=== PATIENT | male | born 1950 | race Caucasian/White ===

== ENCOUNTER → 2018-04-03 06:01 | Outpatient (CLI) | payer MEDICARE, OTHER, SELFPAY ==
[2018-04-03 08:45] LABS: Hemoglobin A1c 7.3 % (4.2-6.3)
== END ==
PROVIDERS: Family Provider Family Medicine; PCP Family Medicine; Visit Provider Family Medicine
DX: E11.9 Type 2 diabetes mellitus without complications (principal)
CPT/HCPCS: 36415; 83036

== ENCOUNTER → 2018-06-14 06:52 | Outpatient (CLI) | payer MEDICARE, OTHER, SELFPAY ==
[2018-06-14 07:47] LABS: Hemoglobin A1c 6.8 % (4.2-6.3)
[2018-06-14 07:52] LABS: AST(SGOT) 13 U/L (15-37); Alanine Aminotransfer ALT/SGPT 19 U/L (16-61); Albumin, Serum 3.7 g/dL (3.2-5.0); Alkaline Phosphatase 55 U/L (45-117); Anion Gap 8 (5-15); BUN 27 mg/dL (7-18); Calcium,Total 9.1 mg/dL (8.5-10.1); Chloride 104 mmol/L (98-107); Creatinine, Serum 0.77 mg/dL (0.70-1.30); EST Glomerular Filtration Rate 107 mL/min (>60); Est Glom Filt Rate - Afr Amer 130 mL/min (>60); Globulin 3.6 g/dL (2.2-4.2); Glucose 117 mg/dL (74-106); Potassium 3.5 mmol/L (3.5-5.1); Protein, Total 7.3 g/dL (6.4-8.2); Sodium Level 142 mmol/L (136-145)
== END ==
PROVIDERS: Family Provider Family Medicine; PCP Family Medicine; Visit Provider Family Medicine
DX: E11.9 Type 2 diabetes mellitus without complications (principal); I10 Essential (primary) hypertension
CPT/HCPCS: 36415; 80053; 83036

== ENCOUNTER 2018-06-21 10:00 | Outpatient (RCR) | payer MEDICARE, OTHER, SELFPAY ==
[2018-06-14 08:33] VITALS: BP 126/81; PULSE 82; RESP 18; TEMP 36.6; BMI 71.5
--- NOTE | 2018-06-14 09:24 | PCM.WC.HP ---
(1) Ulcer of left lower extremity Status: Acute Current Visit: Yes Code(s): L97.929 - Non-pressure chronic ulcer of unspecified part of left lower leg with unspecified severity (2) Type 2 diabetes mellitus Status: Chronic Current Visit: No Code(s): E11.9 - Type 2 diabetes mellitus without complications History of Present Illness Date of Service: 06/14/18 Chief Complaint: Left lower extremity redness and ulcer. History of Wound: Mr. Murillo is a 67-year-old with past medical history of diabetes mellitus type 2 with decent control who presents to the wound center due to persistent left lower extremity redness/ulcer. Said to have started several months ago, had been seen at the foot and ankle clinic and wound center in [place] and at some point and had a biopsy without any significant abnormality noted. Patient states that he was advised to apply triamcinolone cream however when he was seen at his primary care physician's office last week it was noted that there was some ulceration and weeping from the lesion and was advised to stop the triamcinolone. He was given Adaptic which he has applied to the area daily. He has noted improvement in the ulcers and devitalized tissue however, he still has some burning and pain around. He denies any known history of peripheral arterial disease. No known smoking history. He feels well otherwise. Past Medical History Past Medical History: Chronic Problems (Last Reviewed 06/07/18 @ 17:14 by Feliz Landeros DO) Chronic sciatica (Chronic) Hypertension (Chronic) Type 2 diabetes mellitus (Chronic) Allergies/Adverse Reactions: Allergies Penicillins Allergy (Severe, Verified 06/14/18 08:53) unknown Home Medications: Ambulatory Orders Medication Instructions Recorded hydrochlorothiazide 12.5 mg tablet 12.5 mg PO QAM 03/02/18 potassium 99 mg tablet 2.5 meq PO QDAY 03/02/18 amlodipine 5 mg-benazepril 10 mg 1 cap PO QDAY #90 cap 04/24/18 capsule metformin ER 500 mg 500 mg PO BID #180 tab 05/14/18 tablet,extended release 24 hr empagliflozin 25 mg tablet 25 mg PO QAM 06/07/18 triamcinolone acetonide 0.1 % 1 applic TOPICAL BID 06/07/18 topical cream Smoking Status: Never smoker Review of Systems Constitutional: Denies: Anorexia, Chills, Fever, Night Sweats Eyes: Denies: Blurred vision HEENT: Denies: Difficulty Swallowing Cardiovascular: Denies: Chest Pain Respiratory: Denies: Cough, Hemoptysis Gastrointestinal: Denies: Abdominal Pain, Hematemesis, Vomiting Skin: Denies: Jaundice Neurological: Denies: Focal weakness, Tremor - Physical Exam Vital Signs Temp Pulse Resp BP 98 F 82 18 126/81 H 06/14/18 08:33 06/14/18 08:33 06/14/18 08:33 06/14/18 08:33 General: Alert, Oriented x3, Cooperative, No apparent distress HEENT: Atraumatic Oral: Moist Mucosa Neck: Supple Lungs: Normal air movement Cardiovascular: Regular rate, Regular Rhythm Abdomen: Soft, Non Tender Extremities: No cyanosis, Edema, Tenderness Skin: Ulcer/ Wound Wound Measurements and Assessment WC - Nurse 1 - General Ulcer Measurement Start: 06/14/18 08:28 Freq: Status: Active Protocol: Activity Type Activity Date Activity User E-Sign Co-Sign Detail Recorded Client Recorded Date Recorded By Document 06/14/18 08:33 DL [id number] 06/14/18 08:50 DL 06/14/18 08:33 Wound Center Nurse 1 [Ulcer Assessment] #1 L Med Ankle -Current Size (cm) - Length 7 -Current Size (cm) - Width 7 -Current Size (cm) - Depth 0.1 -Total Square Cm 49 -Photo Taken Yes -Classification - Thickness Partial Thickness -Exudate Amt Small (1-33%) -Exudate Type Serosanguineous -Wound Margin Flat & Intact -Granulation Amt Large (67-100%) -Granulation Quality Red -Necrosis Amt None Present (0 %) -Structure Exposed N/A -Texture (Jennifer-wound Skin Appearance) Excoriation Localized Edema -Moisture (Jennifer-wound Skin Appearance No Abnormality ) -Color (Jennifer-wound Skin Appearance) Erythema Hemosiderin Staining -Temperature (Jennifer-wound Skin No Abnormality Appearance) (Pt Warm) -Ulcer Cleansing Rinsed/ Irrigated with Saline -Foul Odor after Cleansing No -Anesthetic Used 4% Lidocaine Solution [Edema Assessment] -Right Calf (cm) 37 -Right Ankle (cm) 21.5 -Left Calf (cm) 37.6 -Left Ankle (cm) 22.5 WC - Nurse 2 - General Ulcer CM Notes Start: 06/14/18 08:28 Freq: Status: Active Protocol: Activity Type Activity Date Activity User E-Sign Co-Sign Detail Recorded Client Recorded Date Recorded By Document 06/14/18 09:01 MW [id number] 06/14/18 09:14 MW 06/14/18 09:01 Wound Center Nurse 2 [Procedure/Treatment] #1 L Med Ankle -Time 09:01 -Correct Patient Yes -Correct Side, Site, Position Yes -Correct Procedure No -Procedure Performed No -Post Debridement Size (cm) - Length 7.0 -Post Debridement Size (cm) - Width 7.0 -Post Debridement Size (cm) - Depth 0.1 -Total Square Cm 49.00 -Wound/Ulcer Outcome Not Healed -Ulcer Cleansing Rinsed/ Irrigated with Saline -Foul Odor after Cleansing No -Bioengineered Tissue No -Bleeding Controlled with NA -Treatment Response Procedure Tolerated Well [See Physician Procedure note for Specifics] Pain Scale: 0-10 Numeric [Pain] -Is Patient Pain Free? Yes Musculoskeletal: No Muscle Wasting Neurological: Cranial nerves II-XII grossly intact Psych/Mental Status: Normal Affect Debridement Note Post-Debridement Measurements/Treatment WC - Nurse 2 - General Ulcer CM Notes Start: 06/14/18 08:28 Freq: Status: Active Protocol: Activity Type Activity Date Activity User E-Sign Co-Sign Detail Recorded Client Recorded Date Recorded By Document 06/14/18 09:01 MW [id number] 06/14/18 09:14 MW 06/14/18 09:01 Wound Center Nurse 2 #1 L Med Ankle -Time 09:01 -Correct Patient Yes -Correct Side, Site, Position Yes -Correct Procedure No -Procedure Performed No -Post Debridement Size (cm) - Length 7.0 -Post Debridement Size (cm) - Width 7.0 -Post Debridement Size (cm) - Depth 0.1 -Total Square Cm 49.00 -Wound/Ulcer Outcome Not Healed -Ulcer Cleansing Rinsed/ Irrigated with Saline -Foul Odor after Cleansing No -Bioengineered Tissue No -Bleeding Controlled with NA -Treatment Response Procedure Tolerated Well Pain Scale: 0-10 Numeric Is Patient Pain Free? Yes No debridement was completed today Assessment/Plan Active Problems (Last Reviewed 06/07/18 @ 17:14 by Feliz Landeros DO) Ulcer of left lower extremity (Acute) Assessment: Left lower extremity ulcer martinez O. Diabetes Mellitus type 2 with good control. Plan: Circumferential erythema with some superficial ulceration. Patient also reports burning. No known history of peripheral arterial disease as noted. No debridement was done today. Vascular and venous studies ordered. Last blood work reviewed. A1c 6.8. Patient again advised to stay of triamcinolone for now. Xeroform to be applied daily. Also discussed adequately moisturizing his skin. Evidence of very dry skin probably due to diabetes. Double layer Tubigrip for edema management. Follow-up in 1 week. Advised to call with any questions or concerns. This note was generated with [employer] dictation software. It may contain incorrect words, spelling, and punctuation that were not noted in checking the note before signing.
--- NOTE | 2018-06-21 07:45 | VDLE_ITS ---
Reason For Study: non-healing ulcer, edema RIGHT LEFT CFV is compressible, spontaneous, phasic, CFV is compressible, spontaneous, phasic, competent and demonstrates normal competent, and demonstrates normal augmentation. augmentation. FV is compressible, spontaneous, phasic, PTV is compressible. competent and demonstrates normal LT PerV is compressible. augmentation. FV and Pop V are partially compressible with POP V is compressible, spontaneous, phasic, decreased flow. competent and demonstrates normal T/P Trunk is partially compressible. augmentation. S-F Junction is competent. T/P Trunk is compressible. GSV is incompetent for greater than .5 PTV is compressible. seconds above the knee, but competent below RT PerV is compressible. the knee. GSV measures .559 x .557 cm. S-F Junction is competent. ASV at the mid/dist thigh is incompetent for GSV is incompetent throughout for greater greater than .5 seconds. ASV measures .505 than .5 seconds. GSV measures .376 x .347 x .469 cm. cm. [employer] V 17 cm proximal to the medial ASV below the knee is incompetent for malleolus is incompetent for greater than .5 greater than .5 seconds. ASV measures .521 seconds. x .567 cm. SSV is competent. Second ASV below the knee is incompetent for greater than .5 seconds. ASV mesures .318 x .359 cm. SSV is competent. Procedure Exam performed in department. The exam was diagnostic. A preliminary report was called and/or faxed to [facility] at the [facility]. Interpretation Summary Acute and chronic deep vein thrombosis is noted in the left femoral vein, popliteal vein, and tibio -peroneal trunk. The remainder of the left lower extremity deep venous system is patent and compressible. The left common femoral vein is competent. Deep veins of the right lower extremity are patent and compressible segmentally. There is no evidence of right lower extremity deep vein thrombosis. Valvular competence appears intact within the proximal deep venous system on the right . The greater saphenous veins appear bilaterally patent and compressible segmentally. Sapheno -femoral junctions are bilaterally competent . The right greater saphenous vein appears segmentally incompetent. The left greater saphenous vein appears incompetent above the knee. The left greater saphenous vein appears competent below the knee. Small saphenous veins are patent and competent bilaterally. Two accessory saphenous veins below the right knee are noted to be incompetent. An accessory saphenous vein in the left mid-thigh is incompetent. An incompetent cartridge filler vein is noted in the left calf, located 17 centimeters proximal to the left medial malleolus. Ordering Physician: Alberto Toussaint Performed By: Emerson Christine RVT
[2018-06-21 09:20] VITALS: BP 156/95; PULSE 64; RESP 20; TEMP 36.5; BMI 71.5
--- NOTE | 2018-06-21 09:55 | PCM.WC.PN ---
(1) Ulcer of left lower extremity Status: Acute Current Visit: Yes Code(s): L97.929 - Non-pressure chronic ulcer of unspecified part of left lower leg with unspecified severity (2) Type 2 diabetes mellitus Status: Chronic Current Visit: No Code(s): E11.9 - Type 2 diabetes mellitus without complications Type of Wound Date of Service: 06/21/18 Chief Complaint: Left lower extremity redness and ulcer. History of Wound: Mr. Murillo is a 67-year-old with past medical history of diabetes mellitus type 2 with decent control who presents to the wound center due to persistent left lower extremity redness/ulcer. Said to have started several months ago, had been seen at the foot and ankle clinic and wound center in [place] and at some point and had a biopsy without any significant abnormality noted. Patient states that he was advised to apply triamcinolone cream however when he was seen at his primary care physician's office last week it was noted that there was some ulceration and weeping from the lesion and was advised to stop the triamcinolone. He was given Adaptic which he has applied to the area daily. He has noted improvement in the ulcers and devitalized tissue however, he still has some burning and pain around. He denies any known history of peripheral arterial disease. No known smoking history. He feels well otherwise. Progress of Wound: Stable. No new complaints at this time. - Physical Exam Vital Signs Temp Pulse Resp BP 97.7 F L 64 20 H 156/95 H 06/21/18 09:20 06/21/18 09:20 06/21/18 09:20 06/21/18 09:20 General: Alert, Oriented x3, Cooperative, No apparent distress HEENT: Atraumatic Oral: Moist Mucosa Neck: Supple Lungs: Normal air movement Cardiovascular: Regular rate Abdomen: Non Tender Extremities: No cyanosis, Edema Skin: Ulcer/ Wound Wound Measurements and Assessment WC - Nurse 1 - General Ulcer Measurement Start: 06/14/18 08:28 Freq: Status: Active Protocol: Activity Type Activity Date Activity User E-Sign Co-Sign Detail Recorded Client Recorded Date Recorded By Document 06/21/18 09:20 DL [id number] 06/21/18 09:27 DL 06/21/18 09:20 Wound Center Nurse 1 [Ulcer Assessment] #1 L Med Ankle -Current Size (cm) - Length 6.7 -Current Size (cm) - Width 6.7 -Current Size (cm) - Depth 0.1 -Total Square Cm 44.89 -Photo Taken No -Epithelialization Large 67-100% -Exudate Amt Small (1-33%) -Exudate Type Serosanguineous -Wound Margin Flat & Intact -Granulation Amt Large (67-100%) -Granulation Quality [place] Red -Necrosis Amt None Present (0 %) -Structure Exposed N/A -Texture (Jennifer-wound Skin Appearance) Localized Edema -Moisture (Jennifer-wound Skin Appearance Weeping ) -Color (Jennifer-wound Skin Appearance) Hemosiderin Staining Rubor -Temperature (Jennifer-wound Skin No Abnormality Appearance) (Pt Warm) -Tenderness on Palpation (Jennifer-wound No Skin Appearance) -Ulcer Cleansing Rinsed/ Irrigated with Saline -Foul Odor after Cleansing No -Anesthetic Used 4% Lidocaine Solution [Edema Assessment] -Right Calf (cm) 37 -Right Ankle (cm) 21.5 -Left Calf (cm) 39.5 -Left Ankle (cm) 22.2 WC - Nurse 2 - General Ulcer CM Notes Start: 06/14/18 08:28 Freq: Status: Active Protocol: Activity Type Activity Date Activity User E-Sign Co-Sign Detail Recorded Client Recorded Date Recorded By Document 06/21/18 09:37 MW [id number] 06/21/18 09:40 MW 06/21/18 09:37 Wound Center Nurse 2 [Procedure/Treatment] #1 L Med Ankle -Time 09:37 -Correct Patient Yes -Correct Side, Site, Position Yes -Correct Procedure Yes -Procedure Performed No -Post Debridement Size (cm) - Length 6.7 -Post Debridement Size (cm) - Width 6.7 -Post Debridement Size (cm) - Depth 0.1 -Total Square Cm 44.89 -Wound/Ulcer Outcome Not Healed -Ulcer Cleansing Rinsed/ Irrigated with Saline -Foul Odor after Cleansing No -Bioengineered Tissue No -Bleeding Controlled with Pressure -Treatment Response Procedure Tolerated Well [See Physician Procedure note for Specifics] Pain Scale: 0-10 Numeric [Pain] -Is Patient Pain Free? Yes Musculoskeletal: No Muscle Wasting Neurological: Cranial nerves II-XII grossly intact Psych/Mental Status: Normal Affect Debridement Note Post-Debridement Measurements/Treatment WC - Nurse 2 - General Ulcer CM Notes Start: 06/14/18 08:28 Freq: Status: Active Protocol: Activity Type Activity Date Activity User E-Sign Co-Sign Detail Recorded Client Recorded Date Recorded By Document 06/14/18 09:01 MW [id number] 06/14/18 09:14 MW Document 06/21/18 09:37 MW [id number] 06/21/18 09:40 MW 06/14/18 06/21/18 09:01 09:37 Wound Center Nurse 2 #1 L Med Ankle -Time 09:01 09:37 -Correct Patient Yes Yes -Correct Side, Site, Position Yes Yes -Correct Procedure No Yes -Procedure Performed No No -Post Debridement Size (cm) - Length 7.0 6.7 -Post Debridement Size (cm) - Width 7.0 6.7 -Post Debridement Size (cm) - Depth 0.1 0.1 -Total Square Cm 49.00 44.89 -Wound/Ulcer Outcome Not Healed Not Healed -Ulcer Cleansing Rinsed/ Rinsed/ Irrigated with Irrigated with Saline Saline -Foul Odor after Cleansing No No -Bioengineered Tissue No No -Bleeding Controlled with NA Pressure -Treatment Response Procedure Procedure Tolerated Well Tolerated Well Pain Scale: 0-10 Numeric Is Patient Pain Free? Yes Yes No debridement was completed today Assessment/Plan Active Problems (Last Reviewed 06/07/18 @ 17:14 by Feliz Landeros DO) Ulcer of left lower extremity (Acute) Assessment: Left lower extremity ulcer martinez O. Diabetes Mellitus type 2 with good control. Plan: Improving circumferential erythema with some superficial ulceration still present. Also has noted some reduction in burning. Vascular and venous studies done reports pending. Continue Xeroform for now. Also continue adequately moisturizing skin and use of hypoallergenic products. Double layer Tubigrip for edema management. Follow-up in 2 weeks. Advised to call with any questions or concerns. This note was generated with [employer] dictation software. It may contain incorrect words, spelling, and punctuation that were not noted in checking the note before signing.
--- NOTE | 2018-06-21 09:59 | PN.PCM_ITS ---
(1) Ulcer of left lower extremity Status: Acute Current Visit: Yes Code(s): L97.929 - Non-pressure chronic ulcer of unspecified part of left lower leg with unspecified severity (2) Type 2 diabetes mellitus Status: Chronic Current Visit: No Code(s): E11.9 - Type 2 diabetes mellitus without complications Type of Wound Date of Service: 06/21/18 Chief Complaint: Left lower extremity redness and ulcer. History of Wound: Mr. Murillo is a 67-year-old with past medical history of diabetes mellitus type 2 with decent control who presents to the wound center due to persistent left lower extremity redness/ulcer. Said to have started several months ago, had been seen at the foot and ankle clinic and wound center in [place] and at some point and had a biopsy without any significant abnormality noted. Patient states that he was advised to apply triamcinolone cream however when he was seen at his primary care physician's office last week it was noted that there was some ulceration and weeping from the lesion and was advised to stop the triamcinolone. He was given Adaptic which he has applied to the area daily. He has noted improvement in the ulcers and devitalized tissue however, he still has some burning and pain around. He denies any known history of peripheral arterial disease. No known smoking history. He feels well otherwise. Progress of Wound: Stable. No new complaints at this time. - Physical Exam Vital Signs Temp Pulse Resp BP 97.7 F L 64 20 H 156/95 H 06/21/18 09:20 06/21/18 09:20 06/21/18 09:20 06/21/18 09:20 General: Alert, Oriented x3, Cooperative, No apparent distress HEENT: Atraumatic Oral: Moist Mucosa Neck: Supple Lungs: Normal air movement Cardiovascular: Regular rate Abdomen: Non Tender Extremities: No cyanosis, Edema Skin: Ulcer/ Wound Wound Measurements and Assessment WC - Nurse 1 - General Ulcer Measurement Start: 06/14/18 08:28 Freq: Status: Active Protocol: Activity Type Activity Date Activity User E-Sign Co-Sign Detail Recorded Client Recorded Date Recorded By Document 06/21/18 09:20 DL [id number] 06/21/18 09:27 DL 06/21/18 09:20 Wound Center Nurse 1 [Ulcer Assessment] #1 L Med Ankle -Current Size (cm) - Length 6.7 -Current Size (cm) - Width 6.7 -Current Size (cm) - Depth 0.1 -Total Square Cm 44.89 -Photo Taken No -Epithelialization Large 67-100% -Exudate Amt Small (1-33%) -Exudate Type Serosanguineous -Wound Margin Flat & Intact -Granulation Amt Large (67-100%) -Granulation Quality [place] Red -Necrosis Amt None Present (0 %) -Structure Exposed N/A -Texture (Jennifer-wound Skin Appearance) Localized Edema -Moisture (Jennifer-wound Skin Appearance Weeping ) -Color (Jennifer-wound Skin Appearance) Hemosiderin Staining Rubor -Temperature (Jennifer-wound Skin No Abnormality Appearance) (Pt Warm) -Tenderness on Palpation (Jennifer-wound No Skin Appearance) -Ulcer Cleansing Rinsed/ Irrigated with Saline -Foul Odor after Cleansing No -Anesthetic Used 4% Lidocaine Solution [Edema Assessment] -Right Calf (cm) 37 -Right Ankle (cm) 21.5 -Left Calf (cm) 39.5 -Left Ankle (cm) 22.2 WC - Nurse 2 - General Ulcer CM Notes Start: 06/14/18 08:28 Freq: Status: Active Protocol: Activity Type Activity Date Activity User E-Sign Co-Sign Detail Recorded Client Recorded Date Recorded By Document 06/21/18 09:37 MW [id number] 06/21/18 09:40 MW 06/21/18 09:37 Wound Center Nurse 2 [Procedure/Treatment] #1 L Med Ankle -Time 09:37 -Correct Patient Yes -Correct Side, Site, Position Yes -Correct Procedure Yes -Procedure Performed No -Post Debridement Size (cm) - Length 6.7 -Post Debridement Size (cm) - Width 6.7 -Post Debridement Size (cm) - Depth 0.1 -Total Square Cm 44.89 -Wound/Ulcer Outcome Not Healed -Ulcer Cleansing Rinsed/ Irrigated with Saline -Foul Odor after Cleansing No -Bioengineered Tissue No -Bleeding Controlled with Pressure -Treatment Response Procedure Tolerated Well [See Physician Procedure note for Specifics] Pain Scale: 0-10 Numeric [Pain] -Is Patient Pain Free? Yes Musculoskeletal: No Muscle Wasting Neurological: Cranial nerves II-XII grossly intact Psych/Mental Status: Normal Affect Debridement Note Post-Debridement Measurements/Treatment WC - Nurse 2 - General Ulcer CM Notes Start: 06/14/18 08:28 Freq: Status: Active Protocol: Activity Type Activity Date Activity User E-Sign Co-Sign Detail Recorded Client Recorded Date Recorded By Document 06/14/18 09:01 MW [id number] 06/14/18 09:14 MW Document 06/21/18 09:37 MW [id number] 06/21/18 09:40 MW 06/14/18 06/21/18 09:01 09:37 Wound Center Nurse 2 #1 L Med Ankle -Time 09:01 09:37 -Correct Patient Yes Yes -Correct Side, Site, Position Yes Yes -Correct Procedure No Yes -Procedure Performed No No -Post Debridement Size (cm) - Length 7.0 6.7 -Post Debridement Size (cm) - Width 7.0 6.7 -Post Debridement Size (cm) - Depth 0.1 0.1 -Total Square Cm 49.00 44.89 -Wound/Ulcer Outcome Not Healed Not Healed -Ulcer Cleansing Rinsed/ Rinsed/ Irrigated with Irrigated with Saline Saline -Foul Odor after Cleansing No No -Bioengineered Tissue No No -Bleeding Controlled with NA Pressure -Treatment Response Procedure Procedure Tolerated Well Tolerated Well Pain Scale: 0-10 Numeric Is Patient Pain Free? Yes Yes No debridement was completed today Assessment/Plan Active Problems (Last Reviewed 06/07/18 @ 17:14 by Feliz Landeros DO) Ulcer of left lower extremity (Acute) Assessment: Left lower extremity ulcer martinez O. Diabetes Mellitus type 2 with good control. Plan: Improving circumferential erythema with some superficial ulceration still present. Also has noted some reduction in burning. Vascular and venous studies done reports pending. Continue Xeroform for now. Also continue adequately moisturizing skin and use of hypoallergenic products. Double layer Tubigrip for edema management. Follow-up in 2 weeks. Advised to call with any questions or concerns. This note was generated with [employer] dictation software. It may contain incorrect words, spelling, and punctuation that were not noted in checking the note before signing.
--- NOTE | 2018-06-24 15:07 | LEAS ---
Arterial Study - Arterial Study Arterial Study: This is a 67-year-old male with a history of peripheral arterial occlusive disease. He is brought to the noninvasive vascular laboratory at this time for the purpose of bilateral noninvasive lower extremity arterial assessment. Doppler signal assessment was used to evaluate the pulses at ankle level bilaterally. The posterior tibial and dorsalis pedis pulses were triphasic bilaterally. Segmental limb pressures were obtained bilaterally. The right ankle pressure, as determined by posterior tibial pulse, was measured at 206 mmHg. The right ankle pressure, as determined by dorsalis pedis pulse, was measured at 186 mmHg. The right digital pressure was measured at 156 mmHg. The left ankle pressure, as determined by posterior tibial pulse, was measured at 195 mmHg. The left ankle pressure, as determined by dorsalis pedis pulse, was measured at 207 mmHg. The left digital pressure was measured at 148 mmHg. Pulse-volume recordings were obtained at ankle and digital levels bilaterally. Waveform amplitudes appeared to be satisfactory bilaterally. Resting ankle-brachial indices were calculated bilaterally. The resting right ankle-brachial index was calculated to be 1.23. The resting left ankle-brachial index was calculated to be 1.23. Digital-brachial indices were calculated bilaterally. The right digital-brachial index was calculated to be 0.93. The left digital-brachial index was calculated to be 0.88. Impression: Based upon the findings of this resting noninvasive lower extremity arterial study, there is no evidence of significant atherosclerotic peripheral arterial occlusive disease in the lower extremities bilaterally. Triphasic waveforms were noted at ankle level bilaterally. Resting ankle-brachial indices were bilaterally normal. Digital-brachial indices were also normal bilaterally. In summary, this represents a normal resting noninvasive lower extremity arterial study bilaterally.
--- NOTE | 2018-06-24 15:12 | LEAS_ITS ---
Arterial Study - Arterial Study Arterial Study: This is a 67-year-old male with a history of peripheral arterial occlusive disease. He is brought to the noninvasive vascular laboratory at this time for the purpose of bilateral noninvasive lower extremity arterial assessment. Doppler signal assessment was used to evaluate the pulses at ankle level bilaterally. The posterior tibial and dorsalis pedis pulses were triphasic bilaterally. Segmental limb pressures were obtained bilaterally. The right ankle pressure, as determined by posterior tibial pulse, was measured at 206 mmHg. The right ankle pressure, as determined by dorsalis pedis pulse, was measured at 186 mmHg. The right digital pressure was measured at 156 mmHg. The left ankle pressure, as determined by posterior tibial pulse, was measured at 195 mmHg. The left ankle pressure, as determined by dorsalis pedis pulse, was measured at 207 mmHg. The left digital pressure was measured at 148 mmHg. Pulse-volume recordings were obtained at ankle and digital levels bilaterally. Waveform amplitudes appeared to be satisfactory bilaterally. Resting ankle-brachial indices were calculated bilaterally. The resting right ankle-brachial index was calculated to be 1.23. The resting left ankle- brachial index was calculated to be 1.23. Digital-brachial indices were calculated bilaterally. The right digital- brachial index was calculated to be 0.93. The left digital-brachial index was calculated to be 0.88. Impression: Based upon the findings of this resting noninvasive lower extremity arterial study, there is no evidence of significant atherosclerotic peripheral arterial occlusive disease in the lower extremities bilaterally. Triphasic waveforms were noted at ankle level bilaterally. Resting ankle-brachial indices were bilaterally normal. Digital-brachial indices were also normal bilaterally. In summary, this represents a normal resting noninvasive lower extremity arterial study bilaterally.
== END 2018-07-01 23:59 ==
LOC: WC 10:00
PROVIDERS: Family Provider Family Medicine; PCP Family Medicine; Visit Provider Internal Medicine
DX: E11.622 Type 2 diabetes mellitus with other skin ulcer (principal); I10 Essential (primary) hypertension; L97.329 Non-pressure chronic ulcer of left ankle with unspecified severity; R60.0 Localized edema; R52 Pain, unspecified; M54.30 Sciatica, unspecified side; Z79.899 Other long term (current) drug therapy; Z79.84 Long term (current) use of oral hypoglycemic drugs; L53.8 Other specified erythematous conditions; E11.51 Type 2 diabetes mellitus with diabetic peripheral angiopathy without gangrene
CPT/HCPCS: 36415; 80053; 83036; 93922; 93970; 99203; 99213; G0463

== ENCOUNTER 2018-07-18 09:15 | Outpatient (RCR) | payer MEDICARE, OTHER, SELFPAY ==
[2018-07-02 01:38] VITALS: BP 156/95; PULSE 64; RESP 20; TEMP 36.5
[2018-07-04 09:13] VITALS: BP 145/77; PULSE 82; RESP 20; TEMP 36.4
--- NOTE | 2018-07-04 10:17 | PN.PCM_ITS ---
(1) Ulcer of left lower extremity Status: Chronic Current Visit: Yes Code(s): L97.929 - Non-pressure chronic ulcer of unspecified part of left lower leg with unspecified severity (2) Type 2 diabetes mellitus Status: Chronic Current Visit: No Code(s): E11.9 - Type 2 diabetes mellitus without complications Type of Wound Date of Service: 07/04/18 Chief Complaint: Left lower extremity redness and ulcer. History of Wound: Mr. Murillo is a 67-year-old with past medical history of diabetes mellitus type 2 with decent control who presents to the wound center due to persistent left lower extremity redness/ulcer. Said to have started several months ago, had been seen at the foot and ankle clinic and wound center in [place] and at some point and had a biopsy without any significant abnormality noted. Patient states that he was advised to apply triamcinolone cream however when he was seen at his primary care physician's office last week it was noted that there was some ulceration and weeping from the lesion and was advised to stop the triamcinolone. He was given Adaptic which he has applied to the area daily. He has noted improvement in the ulcers and devitalized tissue however, he still has some burning and pain around. He denies any known history of peripheral arterial disease. No known smoking history. He feels well otherwise. Progress of Wound: Improving. No new complaints at this time. - Physical Exam Vital Signs Temp Pulse Resp BP 97.6 F L 82 20 H 145/77 H 07/04/18 09:13 10 09:13 07/04/18 09:13 07/04/18 09:13 General: Alert, Oriented x3, Cooperative, No apparent distress HEENT: Atraumatic Oral: Moist Mucosa Neck: Supple Lungs: Normal air movement Abdomen: Non Tender Extremities: No cyanosis Skin: Ulcer/ Wound Wound Measurements and Assessment WC - Nurse 1 - General Ulcer Measurement Start: 07/04/18 09:13 Freq: Status: Active Protocol: Activity Type Activity Date Activity User E-Sign Co-Sign Detail Recorded Client Recorded Date Recorded By Document 07/04/18 09:13 DL [id number] 07/04/18 09:19 DL 07/04/18 09:13 Wound Center Nurse 1 [Ulcer Assessment] #1 L Med Ankle -Current Size (cm) - Length 0.1 -Current Size (cm) - Width 0.1 -Current Size (cm) - Depth 0.1 -Total Square Cm 0.01 -Photo Taken No -Epithelialization Large 67-100% -Exudate Amt Small (1-33%) -Wound Margin Flat & Intact -Granulation Amt Large (67-100%) -Granulation Quality [place] -Necrosis Amt None Present (0 %) -Structure Exposed N/A -Texture (Jennifer-wound Skin Appearance) Scarring -Moisture (Jennifer-wound Skin Appearance No Abnormality ) -Color (Jennifer-wound Skin Appearance) Erythema -Temperature (Jennifer-wound Skin No Abnormality Appearance) (Pt Warm) -Ulcer Cleansing Rinsed/ Irrigated with Saline -Foul Odor after Cleansing No [Edema Assessment] -Right Calf (cm) 39.5 -Right Ankle (cm) 22.5 WC - Nurse 2 - General Ulcer CM Notes Start: 07/04/18 09:13 Freq: Status: Active Protocol: Activity Type Activity Date Activity User E-Sign Co-Sign Detail Recorded Client Recorded Date Recorded By Document 07/04/18 09:43 MW [id number] 07/04/18 09:46 MW 07/04/18 09:43 Wound Center Nurse 2 [Procedure/Treatment] #1 L Med Ankle -Time 09:44 -Correct Patient Yes -Correct Side, Site, Position Yes -Correct Procedure Yes -Procedure Performed No -Post Debridement Size (cm) - Length 0.1 -Post Debridement Size (cm) - Width 0.1 -Post Debridement Size (cm) - Depth 0.1 -Total Square Cm 0.01 -Wound/Ulcer Outcome Not Healed -Ulcer Cleansing Rinsed/ Irrigated with Saline -Foul Odor after Cleansing No -Bioengineered Tissue No -Bleeding Controlled with NA -Treatment Response Procedure Tolerated Well [See Physician Procedure note for Specifics] Pain Scale: 0-10 Numeric [Pain] -Is Patient Pain Free? Yes Musculoskeletal: No Muscle Wasting Neurological: Cranial nerves II-XII grossly intact Psych/Mental Status: Normal Affect Debridement Note Post-Debridement Measurements/Treatment WC - Nurse 2 - General Ulcer CM Notes Start: 07/04/18 09:13 Freq: Status: Active Protocol: Activity Type Activity Date Activity User E-Sign Co-Sign Detail Recorded Client Recorded Date Recorded By Document 07/04/18 09:43 MW [id number] 07/04/18 09:46 MW 07/04/18 09:43 Wound Center Nurse 2 #1 L Med Ankle -Time 09:44 -Correct Patient Yes -Correct Side, Site, Position Yes -Correct Procedure Yes -Procedure Performed No -Post Debridement Size (cm) - Length 0.1 -Post Debridement Size (cm) - Width 0.1 -Post Debridement Size (cm) - Depth 0.1 -Total Square Cm 0.01 -Wound/Ulcer Outcome Not Healed -Ulcer Cleansing Rinsed/ Irrigated with Saline -Foul Odor after Cleansing No -Bioengineered Tissue No -Bleeding Controlled with NA -Treatment Response Procedure Tolerated Well Pain Scale: 0-10 Numeric Is Patient Pain Free? Yes No debridement was completed today Assessment/Plan Active Problems (Last Reviewed 06/07/18 @ 17:14 by Feliz Landeros DO) Ulcer of left lower extremity (Chronic) Assessment: Left lower extremity ulcer martinez O. Diabetes Mellitus type 2 with good control. Plan: Improving circumferential erythema with some minimal ulceration still present. He has also noted improvement in burning and itching. Venous studies suggestive of acute and chronic DVT. Eliquis and follow up with PCP recommended. Vascular studies reviewed, no significant concerns at this time. Continue Xeroform for now. Also continue adequately moisturizing skin and use of hypoallergenic products. Double layer Tubigrip for edema management. Follow-up in 2 weeks. Will refer to dermatology after healing of superficial ulcers for continued care. Advised to call with any questions or concerns. This note was generated with [employer] software. It may contain incorrect words, spelling, and punctuation that were not noted in checking the note before signing.
[2018-07-18 09:38] VITALS: BP 147/82; PULSE 84; RESP 16; TEMP 36.5
[2018-07-18 09:57] LABS: International Normalized Ratio 1.1; Prothrombin Time (Protime)PT. 13.9 SECONDS (11.7-14.9)
--- NOTE | 2018-07-18 10:48 | PCM.WC.PN ---
(1) Ulcer of left lower extremity Status: Chronic Current Visit: Yes Code(s): L97.929 - Non-pressure chronic ulcer of unspecified part of left lower leg with unspecified severity (2) Type 2 diabetes mellitus Status: Chronic Current Visit: No Code(s): E11.9 - Type 2 diabetes mellitus without complications Type of Wound Chief Complaint: Left lower extremity redness and ulcer. History of Wound: Mr. Murillo is a 67-year-old with past medical history of diabetes mellitus type 2 with decent control who presents to the wound center due to persistent left lower extremity redness/ulcer. Said to have started several months ago, had been seen at the foot and ankle clinic and wound center in [place] and at some point and had a biopsy without any significant abnormality noted. Patient states that he was advised to apply triamcinolone cream however when he was seen at his primary care physician's office last week it was noted that there was some ulceration and weeping from the lesion and was advised to stop the triamcinolone. He was given Adaptic which he has applied to the area daily. He has noted improvement in the ulcers and devitalized tissue however, he still has some burning and pain around. He denies any known history of peripheral arterial disease. No known smoking history. He feels well otherwise. Progress of Wound: Superficial ulcers have pretty much healed. No new complaints at this time. - Physical Exam Vital Signs Temp Pulse Resp BP 97.7 F L 84 16 147/82 H 07/18/18 09:38 10 09:38 10 09:38 07/18/18 09:38 General: Alert, Oriented x3, Cooperative, No apparent distress HEENT: Atraumatic Oral: Moist Mucosa Neck: Supple Lungs: Normal air movement Abdomen: Non Tender Extremities: No cyanosis Skin: Rash Present Wound Measurements and Assessment WC - Nurse 1 - General Ulcer Measurement Start: 07/04/18 09:13 Freq: Status: Active Protocol: Activity Type Activity Date Activity User E-Sign Co-Sign Detail Recorded Client Recorded Date Recorded By Document 07/18/18 09:38 [id number] 07/18/18 09:43 CS 07/18/18 09:38 Wound Center Nurse 1 [Ulcer Assessment] #1 L Med Ankle -Combined with other wound No -Current Size (cm) - Length 7.9 -Current Size (cm) - Width 6.4 -Current Size (cm) - Depth 0.1 -Total Square Cm 50.56 -Photo Taken No -Epithelialization Large 67-100% -Tunneling No -Undermining/Tunneling No -Circular Undermining No -Temperature (Jennifer-wound Skin No Abnormality Appearance) (Pt Warm) -Tenderness on Palpation (Jennifer-wound No Skin Appearance) -Ulcer Cleansing Rinsed/ Irrigated with Saline -Foul Odor after Cleansing No -Anesthetic Used 4% Lidocaine Solution [Edema Assessment] -Lower Limb Edema Present No -Right Calf (cm) 44 -Right Ankle (cm) 21.3 WC - Nurse 2 - General Ulcer CM Notes Start: 07/04/18 09:13 Freq: Status: Active Protocol: Activity Type Activity Date Activity User E-Sign Co-Sign Detail Recorded Client Recorded Date Recorded By Document 07/18/18 09:47 MW [id number] 07/18/18 09:53 MW 07/18/18 09:47 Wound Center Nurse 2 [Procedure/Treatment] #1 L Med Ankle -Time 09:51 -Correct Patient Yes -Correct Side, Site, Position Yes -Correct Procedure Yes -Procedure Performed No -Post Debridement Size (cm) - Length 0 -Post Debridement Size (cm) - Width 0 -Post Debridement Size (cm) - Depth 0 -Total Square Cm 0 -Wound/Ulcer Outcome Healed- Epithelialized -Ulcer Cleansing Not Cleansed -Foul Odor after Cleansing No -Bioengineered Tissue No -Bleeding Controlled with NA -Treatment Response Procedure Tolerated Well [See Physician Procedure note for Specifics] Pain Scale: 0-10 Numeric [Pain] -Is Patient Pain Free? Yes Musculoskeletal: No Muscle Wasting Neurological: Cranial nerves II-XII grossly intact Psych/Mental Status: Normal Affect Debridement Note Post-Debridement Measurements/Treatment WC - Nurse 2 - General Ulcer CM Notes Start: 07/04/18 09:13 Freq: Status: Active Protocol: Activity Type Activity Date Activity User E-Sign Co-Sign Detail Recorded Client Recorded Date Recorded By Document 07/04/18 09:43 MW [id number] 07/04/18 09:46 MW Document 07/18/18 09:47 MW [id number] 07/18/18 09:53 MW 07/04/18 07/18/18 09:43 09:47 Wound Center Nurse 2 #1 L Med Ankle -Time 09:44 09:51 -Correct Patient Yes Yes -Correct Side, Site, Position Yes Yes -Correct Procedure Yes Yes -Procedure Performed No No -Post Debridement Size (cm) - Length 0.1 0 -Post Debridement Size (cm) - Width 0.1 0 -Post Debridement Size (cm) - Depth 0.1 0 -Total Square Cm 0.01 0 -Wound/Ulcer Outcome Not Healed Healed- Epithelialized -Ulcer Cleansing Rinsed/ Not Cleansed Irrigated with Saline -Foul Odor after Cleansing No No -Bioengineered Tissue No No -Bleeding Controlled with NA NA -Treatment Response Procedure Procedure Tolerated Well Tolerated Well Pain Scale: 0-10 Numeric Is Patient Pain Free? Yes Yes No debridement was completed today Assessment/Plan Active Problems (Last Reviewed 07/11/18 @ 15:04 by Josiane Shepard) Ulcer of left lower extremity (Chronic) Assessment: Left lower extremity ulcer martinez O. Diabetes Mellitus type 2 with good control. Plan: Superficial ulcerations have pretty much healed. Dermatitis/erythema also significantly improved. Continue Xeroform for now until follow-up with dermatology. Also continue adequately moisturizing skin and use of hypoallergenic products. Double layer Tubigrip for edema management. Advised to follow-up with dermatology as soon as possible. Referred to the [facility]. Advised to call with any questions or concerns. Discharge from the wound center. This note was generated with [employer] software. It may contain incorrect words, spelling, and punctuation that were not noted in checking the note before signing.
--- NOTE | 2018-07-18 10:51 | PN.PCM_ITS ---
(1) Ulcer of left lower extremity Status: Chronic Current Visit: Yes Code(s): L97.929 - Non-pressure chronic ulcer of unspecified part of left lower leg with unspecified severity (2) Type 2 diabetes mellitus Status: Chronic Current Visit: No Code(s): E11.9 - Type 2 diabetes mellitus without complications Type of Wound Chief Complaint: Left lower extremity redness and ulcer. History of Wound: Mr. Murillo is a 67-year-old with past medical history of diabetes mellitus type 2 with decent control who presents to the wound center d ue to persistent left lower extremity redness/ulcer. Said to have started several months ago, had been seen at the foot and ankle clinic and wound center in [place] and at some point and had a biopsy without any significant abnormality noted. Patient states that he was advised to apply triamcinolone cream however when he was seen at his primary care physician's office last week it was noted that there was some ulceration and weeping from the lesion and was advised to stop the triamcinolone. He was given Adaptic which he has applied to the area daily. He has noted improvement in the ulcers and devitalized tissue however, he still has some burning and pain around. He denies any known history of peripheral arterial disease. No known smoking history. He feels well otherwise. Progress of Wound: Superficial ulcers have pretty much healed. No new complaints at this time. - Physical Exam Vital Signs Temp Pulse Resp BP 97.7 F L 84 16 147/82 H 07/18/18 09:38 10 09:38 07/18/18 09:38 07/18/18 09:38 General: Alert, Oriented x3, Cooperative, No apparent distress HEENT: Atraumatic Oral: Moist Mucosa Neck: Supple Lungs: Normal air movement Abdomen: Non Tender Extremities: No cyanosis Skin: Rash Present Wound Measurements and Assessment WC - Nurse 1 - General Ulcer Measurement Start: 07/04/18 09:13 Freq: Status: Active Protocol: Activity Type Activity Date Activity User E-Sign Co-Sign Detail Recorded Client Recorded Date Recorded By Document 07/18/18 09:38 [id number] 07/18/18 09:43 CS 07/18/18 09:38 Wound Center Nurse 1 [Ulcer Assessment] #1 L Med Ankle -Combined with other wound No -Current Size (cm) - Length 7.9 -Current Size (cm) - Width 6.4 -Current Size (cm) - Depth 0.1 -Total Square Cm 50.56 -Photo Taken No -Epithelialization Large 67-100% -Tunneling No -Undermining/Tunneling No -Circular Undermining No -Temperature (Jennifer-wound Skin No Abnormality Appearance) (Pt Warm) -Tenderness on Palpation (Jennifer-wound No Skin Appearance) -Ulcer Cleansing Rinsed/ Irrigated with Saline -Foul Odor after Cleansing No -Anesthetic Used 4% Lidocaine Solution [Edema Assessment] -Lower Limb Edema Present No -Right Calf (cm) 44 -Right Ankle (cm) 21.3 WC - Nurse 2 - General Ulcer CM Notes Start: 07/04/18 09:13 Freq: Status: Active Protocol: Activity Type Activity Date Activity User E-Sign Co-Sign Detail Recorded Client Recorded Date Recorded By Document 07/18/18 09:47 MW [id number] 07/18/18 09:53 MW 07/18/18 09:47 Wound Center Nurse 2 [Procedure/Treatment] #1 L Med Ankle -Time 09:51 -Correct Patient Yes -Correct Side, Site, Position Yes -Correct Procedure Yes -Procedure Performed No -Post Debridement Size (cm) - Length 0 -Post Debridement Size (cm) - Width 0 -Post Debridement Size (cm) - Depth 0 -Total Square Cm 0 -Wound/Ulcer Outcome Healed- Epithelialized -Ulcer Cleansing Not Cleansed -Foul Odor after Cleansing No -Bioengineered Tissue No -Bleeding Controlled with NA -Treatment Response Procedure Tolerated Well [See Physician Procedure note for Specifics] Pain Scale: 0-10 Numeric [Pain] -Is Patient Pain Free? Yes Musculoskeletal: No Muscle Wasting Neurological: Cranial nerves II-XII grossly intact Psych/Mental Status: Normal Affect Debridement Note Post-Debridement Measurements/Treatment WC - Nurse 2 - General Ulcer CM Notes Start: 07/04/18 09:13 Freq: Status: Active Protocol: Activity Type Activity Date Activity User E-Sign Co-Sign Detail Recorded Client Recorded Date Recorded By Document 07/04/18 09:43 MW [id number] 07/04/18 09:46 MW Document 07/18/18 09:47 MW [id number] 07/18/18 09:53 MW 07/04/18 07/18/18 09:43 09:47 Wound Center Nurse 2 #1 L Med Ankle -Time 09:44 09:51 -Correct Patient Yes Yes -Correct Side, Site, Position Yes Yes -Correct Procedure Yes Yes -Procedure Performed No No -Post Debridement Size (cm) - Length 0.1 0 -Post Debridement Size (cm) - Width 0.1 0 -Post Debridement Size (cm) - Depth 0.1 0 -Total Square Cm 0.01 0 -Wound/Ulcer Outcome Not Healed Healed- Epithelialized -Ulcer Cleansing Rinsed/ Not Cleansed Irrigated with Saline -Foul Odor after Cleansing No No -Bioengineered Tissue No No -Bleeding Controlled with NA NA -Treatment Response Procedure Procedure Tolerated Well Tolerated Well Pain Scale: 0-10 Numeric Is Patient Pain Free? Yes Yes No debridement was completed today Assessment/Plan Active Problems (Last Reviewed 07/11/18 @ 15:04 by Josiane Shepard) Ulcer of left lower extremity (Chronic) Assessment: Left lower extremity ulcer martinez O. Diabetes Mellitus type 2 with good control. Plan: Superficial ulcerations have pretty much healed. Dermatitis/erythema also significantly improved. Continue Xeroform for now until follow-up with dermatology. Also continue adequately moisturizing skin and use of hypoallergenic products. Double layer Tubigrip for edema management. Advised to follow-up with dermatology as soon as possible. Referred to the [facility]. Advised to call with any questions or concerns. Discharge from the wound center. This note was generated with [employer] software. It may contain incorrect words, spelling, and punctuation that were not noted in checking the note before signing.
== END 2018-08-01 23:59 ==
LOC: WC 09:15
PROVIDERS: Family Provider Family Medicine; PCP Family Medicine; Referring Provider Internal Medicine; Visit Provider Internal Medicine
DX: E11.622 Type 2 diabetes mellitus with other skin ulcer (principal); R60.0 Localized edema; L97.929 Non-pressure chronic ulcer of unspecified part of left lower leg with unspecified severity; E11.51 Type 2 diabetes mellitus with diabetic peripheral angiopathy without gangrene
CPT/HCPCS: 36415; 85610; 99212; 99213; G0463

== ENCOUNTER → 2018-08-01 16:41 | Outpatient (CLI) | payer MEDICARE, OTHER, SELFPAY ==
[2018-08-01 17:31] LABS: International Normalized Ratio 1.1; Prothrombin Time (Protime)PT. 13.7 SECONDS (11.7-14.9)
== END ==
PROVIDERS: Family Provider Family Medicine; PCP Family Medicine; Referring Provider Internal Medicine; Visit Provider Internal Medicine
DX: Z79.01 Long term (current) use of anticoagulants (principal)
CPT/HCPCS: 36415; 85610

== ENCOUNTER 2018-08-29 06:07 | Outpatient (RCR) | payer MEDICARE, OTHER, SELFPAY ==
[2018-08-08 07:55] LABS: International Normalized Ratio 1.1; Prothrombin Time (Protime)PT. 14.6 SECONDS (11.7-14.9)
[2018-08-15 08:29] LABS: International Normalized Ratio 1.1; Prothrombin Time (Protime)PT. 14.6 SECONDS (11.7-14.9)
[2018-08-22 09:07] LABS: International Normalized Ratio 1.5; Prothrombin Time (Protime)PT. 18.1 SECONDS (11.7-14.9)
[2018-08-29 08:31] LABS: International Normalized Ratio 1.8
== END 2018-08-31 10:33 | disposition home or self-care (01) ==
LOC: LAB 06:07
PROVIDERS: Family Provider Family Medicine; PCP Family Medicine; Referring Provider Family Medicine; Visit Provider Family Medicine
DX: I82.409 Acute embolism and thrombosis of unspecified deep veins of unspecified lower extremity (principal)
CPT/HCPCS: 36415; 85610

== ENCOUNTER 2018-09-26 05:52 | Outpatient (RCR) | payer MEDICARE, OTHER, SELFPAY ==
[2018-07-11 14:59] VITALS: BMI 32.7
[2018-09-05 08:05] LABS: International Normalized Ratio 2.2; Prothrombin Time (Protime)PT. 24.4 SECONDS (11.7-14.9)
[2018-09-12 08:34] LABS: International Normalized Ratio 1.9; Prothrombin Time (Protime)PT. 22.1 SECONDS (11.7-14.9)
[2018-09-19 08:01] LABS: Hemoglobin A1c 7.8 % (4.2-6.3)
[2018-09-19 08:27] LABS: International Normalized Ratio 1.6; Prothrombin Time (Protime)PT. 18.7 SECONDS (11.7-14.9)
[2018-09-26 08:10] LABS: International Normalized Ratio 2.2; Prothrombin Time (Protime)PT. 24.2 SECONDS (11.7-14.9)
== END 2018-09-26 06:00 | disposition home or self-care (01) ==
LOC: LAB 05:52
PROVIDERS: Family Provider Family Medicine; PCP Family Medicine; Referring Provider Family Medicine; Visit Provider Family Medicine
DX: I82.409 Acute embolism and thrombosis of unspecified deep veins of unspecified lower extremity (principal); E11.9 Type 2 diabetes mellitus without complications
CPT/HCPCS: 36415; 83036; 85610

== ENCOUNTER 2018-10-24 06:05 | Outpatient (RCR) | payer MEDICARE, OTHER, SELFPAY ==
[2018-09-12 16:45] VITALS: BMI 33.2
[2018-10-03 08:47] LABS: International Normalized Ratio 2.1; Prothrombin Time (Protime)PT. 23.4 SECONDS (11.7-14.9)
[2018-10-10 09:16] LABS: International Normalized Ratio 2.2; Prothrombin Time (Protime)PT. 24.1 SECONDS (11.7-14.9)
[2018-10-24 07:24] LABS: International Normalized Ratio 2.1; Prothrombin Time (Protime)PT. 23.2 SECONDS (11.7-14.9)
== END 2018-10-24 07:05 | disposition home or self-care (01) ==
LOC: LAB 06:05
PROVIDERS: Family Provider Family Medicine; PCP Family Medicine; Referring Provider Family Medicine; Visit Provider Family Medicine
DX: I82.409 Acute embolism and thrombosis of unspecified deep veins of unspecified lower extremity (principal)
CPT/HCPCS: 36415; 85610

== ENCOUNTER 2018-11-21 05:57 | Outpatient (RCR) | payer MEDICARE, OTHER, SELFPAY ==
[2018-09-12 16:45] VITALS: BMI 33.2
[2018-11-21 08:12] LABS: International Normalized Ratio 2.4
== END 2018-11-29 13:58 | disposition home or self-care (01) ==
LOC: LAB 05:57
PROVIDERS: Family Provider Family Medicine; PCP Family Medicine; Referring Provider Family Medicine; Visit Provider Family Medicine
DX: I82.409 Acute embolism and thrombosis of unspecified deep veins of unspecified lower extremity (principal)
CPT/HCPCS: 36415; 85610

== ENCOUNTER 2018-12-19 05:48 | Outpatient (RCR) | payer MEDICARE, OTHER, SELFPAY ==
[2018-09-12 16:45] VITALS: BMI 33.2
[2018-12-19 08:37] LABS: International Normalized Ratio 2.3; Prothrombin Time (Protime)PT. 25.6 SECONDS (11.7-14.9)
== END 2018-12-19 07:00 | disposition home or self-care (01) ==
LOC: LAB 05:48
PROVIDERS: Family Provider Family Medicine; PCP Family Medicine; Referring Provider Family Medicine; Visit Provider Family Medicine
DX: I82.409 Acute embolism and thrombosis of unspecified deep veins of unspecified lower extremity (principal)
CPT/HCPCS: 36415; 85610

== ENCOUNTER 2019-01-16 06:03 | Outpatient (RCR) | payer MEDICARE, OTHER, SELFPAY ==
[2018-12-28 12:35] VITALS: BMI 33.2
[2019-01-16 08:06] LABS: International Normalized Ratio 2.4; Prothrombin Time (Protime)PT. 26.2 SECONDS (11.7-14.9)
[2019-01-17 17:02] LABS: Testosterone, Serum 4226 325 ng/dL (264-916)
== END 2019-01-29 16:00 | disposition home or self-care (01) ==
LOC: LAB 06:03
PROVIDERS: Family Provider Family Medicine; PCP Family Medicine; Referring Provider Family Medicine; Visit Provider Family Medicine
DX: I82.409 Acute embolism and thrombosis of unspecified deep veins of unspecified lower extremity (principal); N52.9 Male erectile dysfunction, unspecified
CPT/HCPCS: 36415; 84403; 85610

== ENCOUNTER 2019-02-13 05:58 | Outpatient (RCR) | payer MEDICARE, OTHER, SELFPAY ==
[2019-01-30 12:21] VITALS: BMI 33.1
[2019-02-13 08:46] LABS: Prothrombin Time (Protime)PT. 22.4 SECONDS (11.7-14.9)
== END 2019-02-13 07:00 | disposition home or self-care (01) ==
LOC: LAB 05:58
PROVIDERS: Family Provider Family Medicine; PCP Family Medicine; Referring Provider Family Medicine; Visit Provider Family Medicine
DX: I82.409 Acute embolism and thrombosis of unspecified deep veins of unspecified lower extremity (principal)
CPT/HCPCS: 36415; 85610

== ENCOUNTER → 2019-04-11 15:40 | Outpatient (CLI) | payer MEDICARE, OTHER, SELFPAY ==
[2019-04-11 15:15] VITALS: BMI 33.1
--- NOTE | 2019-04-12 | LES_PTH ---
PATIENT: SPARKLE IRVING LOC: [facility] U#:[id number] AGE/SX: 75/M ROOM: RE04/11/[address]: Dr. 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 Lichenoid chronic inflammation of superficial dermis. Hyperkeratosis. See comment. AM:lara 04/15/19 COMMENT There is no evidence of carcinoma. Clinical correlation is suggested. MICROSCOPIC DESCRIPTION Slides are reviewed. GROSS DESCRIPTION Received is one container labeled with the patient's name and not further designated. The specimen consists of a shave biopsy of beck-white skin measuring 1 x 0.8 cm and 1 cm in thickness. The specimen is inked and submitted entirely in one cassette. It will be sectioned at the time of embedding. / SJ:rg 04/12/19 TC:[facility]: [id number]
== END ==
PROVIDERS: Family Provider Family Medicine; PCP Family Medicine; Visit Provider Family Medicine
DX: C44.519 Basal cell carcinoma of skin of other part of trunk (principal)
CPT/HCPCS: 88305

== ENCOUNTER → 2020-05-06 09:12 | Outpatient (CLI) | payer MEDICARE, OTHER, SELFPAY ==
[2020-04-23 16:25] VITALS: BMI 33.1
[2020-05-06 11:21] LABS: ALB/GLOB Ratio 1.1 RATIO (0.9-2.4); AST(SGOT) 19 U/L (15-37); Alanine Aminotransfer ALT/SGPT 33 U/L (16-61); Albumin, Serum 3.6 g/dL (3.2-5.0); Alkaline Phosphatase 44 U/L (45-117); Anion Gap 2 (5-15); BUN 25 mg/dL (7-18); BUN/Creat Ratio 32.9 RATIO (10-20); Calcium,Total 8.9 mg/dL (8.5-10.1); Chloride 108 mmol/L (98-107); Cholesterol 148 mg/dL (200); Creatinine, Serum 0.76 mg/dL (0.70-1.30); EST Glomerular Filtration Rate 109 mL/min (>60); Est Glom Filt Rate - Afr Amer 131 mL/min (>60); Globulin 3.4 g/dL (2.2-4.2); Glucose 190 mg/dL (74-106); High Density Lipoprotein 56 mg/dL; Potassium 3.9 mmol/L (3.5-5.1); Sodium Level 141 mmol/L (136-145); Triglycerides 69 mg/dL; Very Low Density Lipoprotein 14 mg/dL (5-40)
[2020-05-06 11:26] LABS: Microalbumin,Random Urine 21.9 mg/L (NO RANGE EST.); Microalbumin:Creatinine Ratio 24.7 mg/g CRE (<30 mg/g CRE)
== END ==
PROVIDERS: PCP Family Medicine; Referring Provider Family Medicine; Visit Provider Family Medicine
DX: E11.9 Type 2 diabetes mellitus without complications (principal); I10 Essential (primary) hypertension
CPT/HCPCS: 36415; 80053; 80061; 82043; 82570

== ENCOUNTER → 2020-10-29 15:40 | Outpatient (CLI) | payer BC, SELFPAY ==
[2020-10-28 16:28] VITALS: BMI 35.1
[2020-10-29 17:41] LABS: PSA,Total- Diagnostic 1.91 ng/mL (0.0-4.0)
== END ==
PROVIDERS: PCP Family Medicine; Referring Provider Family Medicine; Visit Provider Family Medicine
DX: E11.9 Type 2 diabetes mellitus without complications (principal)
CPT/HCPCS: 36415; 84153

== ENCOUNTER → 2021-05-10 08:08 | Outpatient (CLI) | payer BC, SELFPAY ==
[2021-05-05 16:34] VITALS: BMI 34.7
[2021-05-10 12:28] LABS: ALB/GLOB Ratio 1.1 RATIO (0.9-2.4); AST(SGOT) 11 U/L (15-37); Alanine Aminotransfer ALT/SGPT 30 U/L (16-61); Albumin, Serum 3.6 g/dL (3.2-5.0); Alkaline Phosphatase 42 U/L (45-117); Anion Gap 7 (5-15); BUN 24 mg/dL (7-18); BUN/Creat Ratio 34.9 RATIO (10-20); Calcium,Total 8.7 mg/dL (8.5-10.1); Chloride 103 mmol/L (98-107); Cholesterol 147 mg/dL (200); Creatinine, Serum 0.69 mg/dL (0.70-1.30); EST Glomerular Filtration Rate 121 mL/min (>60); Est Glom Filt Rate - Afr Amer 147 mL/min (>60); Globulin 3.3 g/dL (2.2-4.2); Glucose 206 mg/dL (74-106); High Density Lipoprotein 60 mg/dL; PSA,Total- Diagnostic 1.67 ng/mL (0.0-4.0); Protein, Total 6.9 g/dL (6.4-8.2); Sodium Level 138 mmol/L (136-145); Triglycerides 78 mg/dL; Very Low Density Lipoprotein 16 mg/dL (5-40)
[2021-05-10 12:59] LABS: Microalbumin,Random Urine 19.9 mg/L (NO RANGE EST.); Microalbumin:Creatinine Ratio 18.8 mg/g CRE (<30 mg/g CRE)
== END ==
PROVIDERS: PCP Family Medicine; Referring Provider Family Medicine; Visit Provider Family Medicine
DX: E11.9 Type 2 diabetes mellitus without complications (principal); I10 Essential (primary) hypertension; R35.0 Frequency of micturition
CPT/HCPCS: 36415; 80053; 80061; 82043; 82570; 84153

== ENCOUNTER → 2021-08-13 08:38 | Outpatient (CLI) | payer MEDICARE, SELFPAY ==
--- NOTE | 2021-08-13 08:42 | ECHOD_ITS ---
Reason For Study: [place] Procedure This was a 2D Doppler, Color Flow transthoracic echocardiogram. The study was technically difficult. Exam performed in department. Left Ventricle Based upon the 2D echocardiographic images obtained there appears to be grossly normal left ventricular size, wall motion, and systolic function. The estimated ejection fraction is 55 %. Diastolic function is indeterminate. No regional wall motion abnormalities noted. Right Ventricle Normal RV size. Normal systolic function. Atria The left atrium is mildly enlarged. Normal right atrium. No doppler evidence for ASD. Mitral Valve There is no mitral annular calcification. Normal mitral valve. Trivial mitral valve insufficiency. Tricuspid Valve Normal tricuspid valve. Trivial tricuspid valve insufficiency. Unable to estimate RV systolic pressure/pulmonary artery pressure due to technically difficult study. Aortic Valve Trisinus/trileaflet aortic valve. Moderate focal aortic valve calcification. Mild aortic stenosis. Pulmonic Valve The pulmonic valve is not well visualized. Great Vessels Borderline enlarged aortic root. Pericardium/Pleural No pericardial effusion. MMode/2D Measurements & Calculations LVIDd: 5.1 cm IVSd: 0.93 cm LVOT diam: 2.5 cm LVIDs: 4.2 cm LVPWd: 1.0 cm LVOT area: 5.0 cm2 RVDd: 3.2 cm FS: 18.1 % Ao root diam: 3.9 cm LAV(MOD-bp): 142.9 ml EDV(MOD-sp4): 237.0 ml ACS: 1.2 cm LAV(MOD-bp) Indexed: 59.2 ml/m2 ESV(MOD-sp4): 110.4 ml LAV(MOD-sp2): 130.9 ml EF(MOD-sp4): 53.4 % LAV(MOD-sp4): 135.8 ml EDV(MOD-sp2): 162.5 ml SV(MOD-sp4): 126.7 ml SV(MOD-sp2): 91.4 ml ESV(MOD-sp2): 71.1 ml EF(MOD-sp2): 56.2 % LA A4 area: 30.8 cm2 LA dimension(2D): 4.2 cm RA A4 area: 19.2 cm2 Time Measurements MV dec time: 0.22 sec Doppler Measurements & Calculations MV E max kalen: 95.9 cm/sec Lat Peak E' Kalen: 11.1 cm/sec Med Peak E' Kalen: 7.9 cm/sec MV A max kalen: 82.4 cm/sec E/E' lat: 8.7 E/E' med: 12.1 MV E/A: 1.2 Ao V2 max: 250.3 cm/sec LV V1 max: 86.7 cm/sec SV(LVOT): 104.7 ml Ao max P.1 mmHg LV V1 max P.0 mmHg Ao V2 mean: 194.6 cm/sec LV V1 mean P.9 mmHg Ao mean P.1 mmHg LV V1 mean: 66.4 cm/sec Ao V2 VTI: 57.1 cm LV V1 VTI: 20.8 cm JESUS(I,D): 1.8 cm2 JESUS(V,D): 1.7 cm2 PA V2 max: 103.6 cm/sec ECHO/Echo Complete Interpretation Summary The study was technically difficult. Based upon the 2D echocardiographic images obtained there appears to be grossly normal left ventricular size, wall motion, and systolic function. The estimated ejection fraction is 55 %. The left atrium is mildly enlarged. Trivial mitral valve insufficiency. Trivial tricuspid valve insufficiency. Moderate focal aortic valve calcification. Mild aortic stenosis. Borderline enlarged aortic root. Unable to estimate RV systolic pressure/pulmonary artery pressure due to techni liz difficult study. Diastolic function is indeterminate. Ordering Physician: Bruno Ballesteros Referring Physician: Bruno Ballesteros Performed By: Adrianna Lira, [place], RVT
== END ==
PROVIDERS: PCP Family Medicine; Referring Provider Nurse Practitioner Family; Visit Provider Nurse Practitioner Family
DX: R01.1 Cardiac murmur, unspecified (principal)
CPT/HCPCS: 93306

== ENCOUNTER → 2022-05-25 | Outpatient (CLI) | payer MEDICARE, SELFPAY ==
[2022-05-25 16:42] LABS: Absolute Lymphocyte Count 2.48 X10^3/uL (0.83-4.51); Absolute Neutrophil Count 5.1 X10^3/uL (2.0-7.7); Basophil# 0.05 X10^3/uL; Basophil% 0.6 % (0-1); Eosinophil# 0.12 X10^3/uL; Eosinophils% 1.4 % (0-5); Hematocrit 38.5 % (40-54); Hemoglobin 13.1 g/dL (13.0-16.5); Lymphocyte # 2.48 X10^3/ul (0.83-4.51); Lymphocyte % 28.7 % (19-41); Mean Corpuscular Hgb 29.5 pg (27.0-32.0); Mean Corpuscular Volume 86.7 fL (80-94); Mean Platelet Vol. 9.1 fl (6.2-12.0); Monocyte% 10.4 % (0-10); NRBC Flagged by Analyzer 0 % (0-5); Neutrophil # 5.06 X10^3/uL (2.7-7.7); Neutrophil % 58.6 % (47-70); Platelet Count 266 K/mm3 (150-450); RBC Distribution Width CV 13.2 % (11.6-14.6); RBC Distribution Width SD 41.5 fl (35.1-43.9); Red Blood Count 4.44 M/mm3 (4.6-6.2); White Blood Count 8.6 K/mm3 (4.4-11.0)
[2022-05-25 17:27] LABS: ALB/GLOB Ratio 1.1 RATIO (0.9-2.4); AST(SGOT) 14 U/L (15-37); Alanine Aminotransfer ALT/SGPT 27 U/L (16-61); Albumin, Serum 3.7 g/dL (3.2-5.0); Alkaline Phosphatase 48 U/L (45-117); Anion Gap 7 (5-15); BUN 21 mg/dL (7-18); BUN/Creat Ratio 30.4 RATIO (10-20); Calcium,Total 8.7 mg/dL (8.5-10.1); Chloride 102 mmol/L (98-107); Cholesterol 126 mg/dL (200); Creatinine, Serum 0.69 mg/dL (0.70-1.30); EST Glomerular Filtration Rate 121 mL/min (>60); Est Glom Filt Rate - Afr Amer 146 mL/min (>60); Globulin 3.3 g/dL (2.2-4.2); Glucose 97 mg/dL (74-106); High Density Lipoprotein 56 mg/dL; PSA,Total - Annual Screen 2.05 ng/mL (0.00-4.00); Potassium 3.4 mmol/L (3.5-5.1); Sodium Level 138 mmol/L (136-145); Thyroid Stim Hormone (TSH) 0.92 uIU/mL (0.358-3.74); Triglycerides 79 mg/dL; Very Low Density Lipoprotein 16 mg/dL (5-40)
== END | disposition home or self-care (01) ==
LOC: BIMLAB 15:32
PROVIDERS: PCP Family Medicine; Referring Provider Nurse Practitioner Family; Visit Provider Nurse Practitioner Family
DX: E11.9 Type 2 diabetes mellitus without complications (principal); I10 Essential (primary) hypertension; Z12.5 Encounter for screening for malignant neoplasm of prostate
CPT/HCPCS: 36415; 80053; 80061; 84153; 84443; 85025; G0103

== ENCOUNTER → 2023-10-30 | Outpatient (CLI) | payer MEDICARE, SELFPAY ==
--- OUTSIDE RECORDS SUMMARY | 2023-10-30 13:50 | XMS RPT_ITS | CCD ---
Author Name Unknown Address [address] [facility] [address] [place] [address] Organization [facility] Care Team Providers Care Cob Sawyer Name Role Phone SHARON CALIXTO Unavailable Unavailable SHARON CALIXTO Unavailable Unavailable ROSANGELA WALTERS Unavailable Unavailable Pawa, Pratheep Unavailable Unavailable ROSANGELA WALTERS DO Primary Care Physician Alysa Murillo PT Unavailable Unavailable ROSANGELA WALTERS DO Attending Unavailable ROSANGELA WALTERS DO Primary Care Unavailable Allergies Allergy Classification Reported Allergen(s) Allergy Type Date of Onset Reaction(s) Facility (1 source) Penicillin; Translations: [penicillin] Drug Allergy RASH [facility] Medications Current Medications Medication Drug Class(es) Dates Sig (Normalized) Sig (Original) amLODIPine 5 mg / benazepril hydrochloride 10 mg oral capsule (1 source) Dihydropyridine Calcium Channel Tyree, Angiotensin Converting Enzyme Inhibitor Start: 09-21-20 take 1 capsule by mouth once daily Lotrel 5 mg-10 mg oral capsule Dose = 1 cap(s), Oral, Daily, 0 Refill(s) Start Date: 09/21/17 Status: Ordered canagliflozin 300 mg oral tablet (1 source) Sodium-Glucose Cotransporter 2 Inhibitor Start: 09-21-20 Invokana 300 mg oral tablet Dose : 300 mg = 1 tab(s), Oral, acBreakfast, 0 Refill(s) Start Date: 09/21/17 Status: Ordered herbal/nutritional product (1 source) Start: 09-21-20 take 1 tablet by mouth once daily herbal/nutritional product 1 TAB, Oral, Daily, 0 Refill(s) Start Date: 09/21/17 Status: Ordered hydroCHLOROthiazide 12.5 mg oral capsule (1 source) Thiazide Diuretic Start: 09-21-20 hydroCHLOROthiazide 12.5 mg oral capsule Dose : 12.5 mg = 1 cap(s), Oral, Daily, 0 Refill(s) Start Date: 09/21/17 Status: Ordered ibuprofen 200 mg oral tablet (1 source) Nonsteroidal Anti-inflammatory Drug Start: 09-21-20 ibuprofen 200 mg oral tablet Dose : 400 mg = 2 tab(s), Oral, q4h, PRN for pain, 0 Refill(s) Start Date: 09/21/17 Status: Ordered metFORMIN hydrochloride 500 mg oral tablet (1 source) Biguanide Start: 09-21-20 metFORMIN 500 mg oral tablet Dose : 1,000 mg = 2 tab(s), Oral, Daily, 0 Refill(s) Start Date: 09/21/17 Status: Ordered Problems Active Problems Problem Classification Problem Date Documented Date Episodic/Chronic Diabetes mellitus without complication (1 source) Diabetic - cooperative patient 09-21-2017 Chronic Essential hypertension (1 source) Hypertensive disorder 09-21-2017 Chronic Osteoarthritis (1 source) Osteoarthritis 09-21-2017 Chronic Residual codes; unclassified (1 source) Sleep apnea 09-21-2017 Chronic Unclassified (1 source) Unknown / UNK(Unknown) Onset: 09-02-2017 Unclassified (1 source) Continuous positive airway pressure ventilation weaning protocol 09-21-2017 Past or Other Problems Problem Classification Problem Date Documented Da te Episodic/Chronic Unclassified (1 source) RED AND ITCHY EYES Onset: 09-02-2017 Results Test Name Value Interpretation Reference Range Facil ity Encounters Encounter Date Encounter Type Care Provider Facility Start: 12-03-2022 End: 12-04-2022 ambulatory ROSANGELA WALTERS DO Facility:B Start: 12-03-2022 End: 12-03-2022 Patient encounter procedure ROSANGELA WALTERS DO [facility] Start: 10-10-2017 Ambulatory SHARON campos:B Start: 09-02-2017 Patient encounter Luz Elena Gonzalez lity:[facility] Procedures Date Procedure Procedure Detail Performing Clinician Colonoscopy ROSANGELA Ruth O Umbilical hernia (disorder) ROSANGELA WLATERS DO Payers Date Payer Category Payer Unknown [id number] 2017 Medicare [id number] 1950 Unknown [id number] 1950 Unknown [id number] Social History Date Type Detail Facility Tobacco smoking status Never smo ked tobacco (finding) [facility] Sex Assigned At Sex [facility] Evaluation + Plan note Note Date & Type Note Facility Evaluation + Plan note No data available for this section [facility] Hospital Discharge instructions Note Date & Type Note Facility Hospital Discharge instructions No data available for this section [facility] Progress note Note Date & Type Note Facility Progress note No data available for this section [facility] Summary Purpose Family History No Family History Records FoundNo Family History Records FoundNo Family History Records Found Advance Directives No Advanced Directives Records FoundNo Advanced Directives Records FoundNo Advanced Directives Records Found Additional Source Comments (unrecognized sect ion and content) No Status Records FoundNo Status Records FoundNo Status Records Found INFORMATION SOURCE (unrecogn ized section and content) DATE CREATED AUTHOR AUTHOR'S ORGANIZ ATION 04/14/2018 [facility]imi [place] DATE CREATED AUTHOR AUTHOR'S ORGANIZ ATION 03/24/2023 [facility] [place] ([place] Care Team (unrecognized sect ion and content) Care Team Personnel Name: Gilmar Murillo Clermohsen Watt PT 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 This clinical summary was aggregated from multiple sources. Caution should be exercised in using it in the provision of clinical care. This summary normalizes information from multiple sources, and as a consequence, information in this document may materially change the coding, format and clinical context of patient data. In addition, data may be omitted in some cases. CLINICAL DECISIONS SHOULD BE BASED ON THE PRIMARY CLINICAL RECORDS. [facility]. provides no warranty or guarantee of the accuracy or completeness of information in this document.
[2023-10-30 15:15] LABS: Anion Gap 6 (5-15); BUN 20 mg/dL (7-18); BUN/Creat Ratio 25.9 RATIO (10-20); Calcium,Total 9.1 mg/dL (8.5-10.1); Chloride 104 mmol/L (98-107); Creatinine, Serum 0.77 mg/dL (0.70-1.30); EST Glomerular Filtration Rate 106 mL/min (>60); Est Glom Filt Rate - Afr Amer 128 mL/min (>60); Glucose 200 mg/dL (74-106); Potassium 3.7 mmol/L (3.5-5.1); Sodium Level 142 mmol/L (136-145)
== END | disposition home or self-care (01) ==
LOC: BIMLAB 13:17
PROVIDERS: PCP Family Medicine; Referring Provider Nurse Practitioner; Visit Provider Nurse Practitioner
DX: I10 Essential (primary) hypertension (principal); E11.9 Type 2 diabetes mellitus without complications
CPT/HCPCS: 36415; 80048

== ENCOUNTER → 2023-12-07 | Outpatient (CLI) | payer MEDICARE, SELFPAY ==
[2023-12-07 16:16] LABS: PSA,Total - Annual Screen 1.84 ng/mL (0.00-4.00)
== END | disposition home or self-care (01) ==
LOC: BIMLAB 14:25
PROVIDERS: PCP Family Medicine; Visit Provider Family Medicine
DX: Z12.5 Encounter for screening for malignant neoplasm of prostate (principal); R35.0 Frequency of micturition
CPT/HCPCS: 36415; 84153; G0103

== ENCOUNTER → 2025-01-13 | Outpatient (CLI) | payer MEDICARE, SELFPAY ==
--- NOTE | 2025-01-13 06:46 | EKG12_ITS ---
Test Reason : ROUTINE Blood Pressure : */* mmHG Vent. Rate : 82 BPM Atrial Rate : 82 BPM P-R Int : 196 ms QRS Dur : 114 ms QT Int : 400 ms P-R-T Axes : 60 14 79 degrees QTcB Int : 467 ms Sinus rhythm with occasional Premature ventricular complexes Possible Left atrial enlargement Prolonged QT Abnormal ECG Confirmed by Rasta Kenyon ([id number]), advertising editor JEFFERY LAMBERT ([id number]) on 01/13/2025 1:13:52 PM Referred By: Feliz Landeros Confirmed By: Rasta Kenyon
[2025-01-13 07:36] LABS: Absolute Lymphocyte Count 1.93 X10^3/uL (0.83-4.51); Absolute Neutrophil Count 3.2 X10^3/uL (2.0-7.7); Basophil# 0.05 X10^3/uL; Basophil% 0.8 % (0-1); Eosinophil# 0.22 X10^3/uL; Eosinophils% 3.5 % (0-5); Hematocrit 41.1 % (40-54); Hemoglobin 13.5 g/dL (13.0-16.5); Lymphocyte # 1.93 X10^3/ul (0.83-4.51); Lymphocyte % 30.8 % (19-41); Mean Corp Hgb Conc 32.8 g/dL (32-36); Mean Corpuscular Volume 88.2 fL (80-94); Mean Platelet Vol. 9.4 fl (6.2-12.0); Monocyte# 0.86 X10^3/uL; Monocyte% 13.7 % (0-10); NRBC Flagged by Analyzer 0 % (0-5); Neutrophil # 3.19 X10^3/uL (2.7-7.7); Neutrophil % 50.9 % (47-70); Platelet Count 247 K/mm3 (150-450); RBC Distribution Width CV 13.8 % (11.6-14.6); Red Blood Count 4.66 M/mm3 (4.6-6.2); White Blood Count 6.3 K/mm3 (4.4-11.0)
[2025-01-13 08:25] LABS: ALB/GLOB Ratio 1.5 RATIO (0.9-2.4); AST(SGOT) 26 U/L (<=37); Alanine Aminotransfer ALT/SGPT 24 U/L (<=46); Albumin, Serum 4.1 g/dL (3.4-4.8); Alkaline Phosphatase 60 U/L (40-129); Anion Gap 11 (5-15); BUN 22 mg/dL (4-19); BUN/Creat Ratio 26.6 RATIO (10-20); Calcium,Total 9.4 mg/dL (7.6-11.0); Carbon Dioxide 27.9 mmol/L (21.0-32.0); Chloride 103 mmol/L (98-108); Cholesterol 86 mg/dL (<=200); Creatinine, Serum 0.84 mg/dL (0.70-1.20); EST Glomerular Filtration Rate 93 (>60); Globulin 2.8 g/dL (2.2-4.2); Glucose 107 mg/dL (70-99); High Density Lipoprotein 50 mg/dL; Low Density Lipoprotein Calc. 30 mg/dL; PSA,Total - Annual Screen 1.74 ng/mL (0.02-4.00); Sodium Level 141 mmol/L (133-145); Total Bilirubin 0.85 mg/dL (0.00-1.30); Triglycerides 33 mg/dL; Very Low Density Lipoprotein 7 mg/dL (5-40); cholesterol:hdl ratio screen 1.73
== END | disposition home or self-care (01) ==
PROVIDERS: PCP Family Medicine; Referring Provider Family Medicine; Visit Provider Family Medicine
DX: I49.49 Other premature depolarization (principal); E11.9 Type 2 diabetes mellitus without complications; Z12.5 Encounter for screening for malignant neoplasm of prostate
CPT/HCPCS: 36415; 80053; 80061; 84153; 85025; 93005; G0103

== ENCOUNTER 2025-03-03 16:28 | Observation (INO) | payer MEDICARE, SELFPAY ==
[2025-03-03 16:29] VITALS: BP 148/115; PULSE 96; RESP 19; TEMP 36.7; O2SAT 98
--- NOTE | 2025-03-03 16:58 | EKG12_ITS ---
Test Reason : Blood Pressure : */* mmHG Vent. Rate : 80 BPM Atrial Rate : 80 BPM P-R Int : 212 ms QRS Dur : 108 ms QT Int : 408 ms P-R-T Axes : 50 -34 70 degrees QTcB Int : 470 ms Sinus rhythm with 1st degree A-V block with Premature atrial complexes with Aberrant conduction Left axis deviation Incomplete left bundle branch block Minimal voltage criteria for LVH, may be normal variant ( Zurdo product ) Abnormal ECG Confirmed by Rasta Kenyon ([id number]), index editor JEFFERY LAMBERT ([id number]) on 03/04/2025 9:59:05 AM Referred By: Berry Lind Confirmed By: Rasta Kenyon
--- NOTE | 2025-03-03 16:59 | EX.ED.DYSGE1 ---
HPI History of Present Illness Chief Complaint: Edema Narrative Narrative: 74-year-old male past medical history of hypertension, diabetes, on metformin and insulin, presents with bilateral leg and abdominal swelling as well as shortness of breath that has had over the last week. He also endorses 20 pound weight gain. He states that whenever he exerts himself, he feels short of breath, and is extremely fatigued. He called his primary care provider's office but was seen by one of their colleagues who sent him in for evaluation. He noticed that his abdomen is more distended. He denies any chest pain, no fevers or chills, no nausea or vomiting, no headache. He has an occasional cough that is not productive of sputum. He has noticed that both of his legs have been swollen. He does take hydrochlorothiazide already for high blood pressure. [facility] Medical History (Updated 03/03/25 @ 20:31 by Berry Lind MD) Deep vein thrombosis (DVT) Hyperlipidemia Actinic keratosis Seborrheic keratosis Skin cancer Murmur, cardiac Chronic sciatica Hypertension Type 2 diabetes mellitus Home Medications ?Medication ?Instructions ?Recorded ?Last Taken ?Type acetaminophen 500 mg tablet 500 mg PO Q6H PRN pain 04/10/19 03/03/25 History (Tylenol Extra Strength) cholecalciferol (vitamin D3) 125 125 mcg PO BID 08/04/21 03/03/25 History mcg (5,000 unit) capsule potassium 99 mg tablet 99 mg PO BID 08/04/21 03/03/25 History zinc 50 mg tablet 50 mg PO BID 08/04/21 03/03/25 History sildenafil 50 mg tablet 50 mg PO DAILY PRN sexual activity 02/16/22 Unknown Rx #30 tabs magnesium oxide 400 mg PO DAILY 12/01/22 03/03/25 History 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,lump receiver,cont #1 ea 05/21/24 Unknown Rx (FreeStyle Emmanuel 3 [place]) flash glucose sensor (FreeStyle #1 ea 05/21/24 Unknown Rx Emmanuel 2 Sensor kit) pen needle, diabetic 32 gauge x #100 ea 06/19/24 Unknown Rx 3/ (Comfort EZ Pen [place]) ascorbic acid (vitamin C) 1,000 mg 2 g PO Q6H 07/03/24 03/03/25 History tablet atorvastatin 40 mg tablet 40 mg PO DAILY #90 tabs 09/04/24 03/03/25 Rx insulin glargine 100 unit/mL (3 45 unit (0.45 mL) subcut QPM #15 mL 10/25/24 03/02/25 Rx mL) subcutaneous pen (Lantus Solostar U-100 Insulin) hydrochlorothiazide 12.5 mg tablet 12.5 mg PO QAM #90 tabs 10/26/24 03/03/25 Rx metformin 500 mg tablet,extended 500 mg PO BID #180 tabs 10/26/24 03/03/25 Rx release 24 hr amlodipine 5 mg-benazepril 10 mg 1 cap PO QDAY #90 caps 12/10/24 03/03/25 Rx capsule vitamin K2 100 mcg capsule 100 mcg PO DAILY 03/03/25 03/03/25 History Allergy/AdvReac Type Severity Reaction Status Date / Time Penicillins Allergy Severe unknown Verified 12/18/24 16:25 Family History Father Glaucoma Hypertension Heart disease Cancer prostate Mother Hypertension Colon cancer Grandfather CVA (cerebral vascular accident) Surgical History H/O cataract removal with insertion of prosthetic lens history of torn upper quad History of hernia repair Social History (Updated 03/03/25 @ 20:[address] Jolie Osman MD) household members: spouse Smoking Status: Never smoker alcohol intake: never substance use type: does not use what type of physical activity do you participate in: walking and bicycling ROS ROS ED ROS Narrative Review of systems positive for bilateral leg swelling, abdominal distention, shortness of breath, fatigue, no fevers or chills. Rare cough, nonproductive. No chest pain. No exacerbating or alleviating factors although he feels fine when he is sitting and not exerting himself. EXAM Physical Exam Narrative Exam Narrative: Afebrile. Vital signs noted. Nontoxic-appearing. Cardiovascular examination reveals a regular rate and rhythm. Lungs are clear to auscultation bilaterally, no appreciable rales, no respiratory distress. Abdomen is soft and nontender with mild distention. Positive bowel sounds. Neurological examination nonfocal nonlateralizing. Positive +2 to +3 bilateral pitting edema, equal and symmetric. Const Vital Signs: 03/03/25 16:29 03/03/25 16:29 03/03/25 18:27 Temperature 98.1 F Temperature Source Oral Pulse Rate 96 79 Respiratory Rate 19 H 18 Respiratory Effort Normal Non-Labored Respiratory Pattern Normal Blood Pressure 148/115 H 137/83 H Blood Pressure Mean 126 101 Pulse Ox 98 95 Oxygen Delivery Method Room Air Room Air MDM MDM MDM Narrative Medical decision making narrative: The differential diagnosis includes but not limited to congestive heart failure versus liver failure versus peripheral edema. His abdominal distention may be secondary to ascites. Pulse ox is 98% on room air without evidence of hypoxia. Comprehensive workup was pursued. I did feel that CT of the abdomen and pelvis should be obtained as well given his abdominal distention and weight gain. EKG obtained and interpreted by myself independently as normal sinus rhythm at 80 bpm with PACs and PVCs. No acute ST changes. No STEMI. Additionally, patient states is not having any chest pain. I reviewed his laboratory work and he is got a normal white count of 8.5 with hemoglobin 12.5, hematocrit 37.6, platelet count 233. CMP is grossly unremarkable except for BUN of 24 and normal creatinine of 0.9, glucose elevated at 104 with normal anion gap of 11. BNP is elevated at 2452 consistent with CHF. Chest x-ray interpreted by myself shows a moderately sized left pleural effusion but no pneumothorax. I do not feel antibiotics are indicated. Given his pleural effusion, clinical examination, and elevated BNP, patient administered Lasix 40 mg intravenously. Urinalysis obtained and reviewed and is negative for infection. I reviewed the radiology report of the CT of the abdomen and pelvis that there is no ascites. However, they do comment on anasarca. Although he was able to ambulate a short distance and his pulse ox remained 92% on room air, given his new onset CHF, I do feel that he requires at least observation on the PCU and will most likely require echocardiogram. I discussed patient with Dr. Jolie Osman for assignment observation. Patient is in stable condition. History & Record Review Discussion w/independent historian: Patient and Family Additional record(s) reviewed:: Prior labs (No significant change except for elevated BNP.) Lab Data Attestation: I reviewed the patient's lab results. Labs: Laboratory Results - last 24 hr 03/03/25 03/03/25 17:17 17:25 WBC 8.5 RBC 4.26 L Hgb 12.5 L Hct 37.6 L MCV 88.3 MCH 29.3 MCHC 33.2 RDW Std Deviation 50.3 H RDW Coeff of Nereyda 15.6 H Plt Count 233 MPV 9.4 Immature Gran % (Auto) 0.400 Neut % (Auto) 68.9 Lymph % (Auto) 19.5 [place] % (Auto) 9.9 Eos % (Auto) 0.8 Baso % (Auto) 0.5 Absolute Neuts (auto) 5.9 Absolute Lymphs (auto) 1.66 Nucleated RBC % 0 Sodium 141 Potassium 3.8 Chloride 105 Carbon Dioxide 24.4 Anion Gap 11 BUN 24 H Creatinine 0.90 Est GFR (MDRD) Non-Af 91 BUN/Creatinine Ratio 26.8 H Glucose 104 H Calcium 9.1 Total Bilirubin 1.44 H AST 28 ALT 24 Alkaline Phosphatase 59 NT pro BNP II 2452 H Total Protein 6.1 Albumin 3.7 Globulin 2.4 Albumin/Globulin Ratio 1.6 Urine Color Yellow Urine Clarity Clear Urine pH 6.0 Ur Specific [place] 1.015 Urine Protein 30 H Urine Glucose (UA) Normal Urine Ketones 5 H Urine Occult Blood Negative Urine Nitrite Negative Urine Bilirubin Negative Urine Urobilinogen 1 H Ur Leukocyte Esterase Negative Urine RBC 0 SEEN Urine WBC 0-5 SEEN Ur Squamous Epith Cells 0-5 SEEN Urine Bacteria 0 SEEN Urine Mucus 1+ Radiography Chest X-Ray - ED: 1 View, Read by ED Physician and Read by Radiologist Diagnostic Testing: Clinical Impression(s) from Imaging Studies Chest X-Ray 03/03/25 17:35 IMPRESSION: 1. Moderate left pleural effusion. 2. Cardiomegaly. 3. Nodular opacities in the left perihilar region measuring up to 8 mm, likely calcified nodes or calcified pulmonary granulomas. Recommend attention on upcoming CT. Reading Location: [id number] Abdomen/Pelvis CT 03/03/25 18:07 IMPRESSION: 1. No evidence of bowel obstruction. 2. Cardiomegaly with moderate left and trace right pleural effusions, in addition to anasarca, may be the result of fluid overload. 3. Findings suggestive of mild hepatic steatosis. 4. Fat containing left paraumbilical and right inguinal hernias. Reading Location: [id number] Discharge Plan Dx/Rx/DC Orders Clinical Impression: Congestive heart failure, Pleural effusion, left, Pedal edema Disposition Disposition: Acute Care Hospital [facility]
[2025-03-03 17:28] LABS: Absolute Lymphocyte Count 1.66 X10^3/uL (0.83-4.51); Absolute Neutrophil Count 5.9 X10^3/uL (2.0-7.7); Basophil# 0.04 X10^3/uL; Basophil% 0.5 % (0-1); Eosinophil# 0.07 X10^3/uL; Eosinophils% 0.8 % (0-5); Hematocrit 37.6 % (40-54); Hemoglobin 12.5 g/dL (13.0-16.5); Lymphocyte # 1.66 X10^3/ul (0.83-4.51); Lymphocyte % 19.5 % (19-41); Mean Corp Hgb Conc 33.2 g/dL (32-36); Mean Corpuscular Hgb 29.3 pg (27.0-32.0); Mean Corpuscular Volume 88.3 fL (80-94); Mean Platelet Vol. 9.4 fl (6.2-12.0); Monocyte# 0.84 X10^3/uL; Monocyte% 9.9 % (0-10); NRBC Flagged by Analyzer 0 % (0-5); Neutrophil # 5.86 X10^3/uL (2.7-7.7); Neutrophil % 68.9 % (47-70); Platelet Count 233 K/mm3 (150-450); RBC Distribution Width CV 15.6 % (11.6-14.6); RBC Distribution Width SD 50.3 fl (35.1-43.9); Red Blood Count 4.26 M/mm3 (4.6-6.2); White Blood Count 8.5 K/mm3 (4.4-11.0)
[2025-03-03 17:34] LABS: Bacteria 0 SEEN /hpf (None Seen); Red Blood Cells-Urine 0 SEEN /hpf (0-5)
--- NOTE | 2025-03-03 17:35 | RAD_ITS ---
PROCEDURE: CHEST 1 VIEW (PORTABLE) 03/03/2025 REASON FOR EXAM: SHORTNESS OF BREATH TECHNIQUE: Frontal view of the chest. COMPARISON: None FINDINGS: Hardware: None Heart: Heart size is moderately enlarged. Lungs: Moderate left pleural effusion. Round nodular opacities in the left perihilar region measuring up to 8 mm in size. Bones: The bones are unremarkable. RAD/Chest 1 View (Portable) IMPRESSION: 1. Moderate left pleural effusion. 2. Cardiomegaly. 3. Nodular opacities in the left perihilar region measuring up to 8 mm, likely calcified nodes or calcified pulmonary granulomas. Recommend attention on upcoming CT. Reading Location: [facility]
[2025-03-03 17:50] LABS: Color, Urine Yellow (Yellow); Glucose, Dipstick Normal (Normal); Ketone-Dipstick 5 mg/dl (Negative); Leukocyte Esterase-Dipstick Negative /ul (Negative); Nitrite-Dipstick Negative (Negative); Occult Blood-Urine Negative /ul (Negative); Protein-Dipstick 30 mg/dl (Negative); Specific Gravity, Urine 1.015 (1.002-1.030); Urine Bilirubin Dipstick Negative (Negative); Urine Clarity Clear (Clear); Urine Urobilinogen 1 mg/dl (Normal)
[2025-03-03 18:04] LABS: ALB/GLOB Ratio 1.6 RATIO (0.9-2.4); AST(SGOT) 28 U/L (<=37); Alanine Aminotransfer ALT/SGPT 24 U/L (<=46); Albumin, Serum 3.7 g/dL (3.4-4.8); Alkaline Phosphatase 59 U/L (40-129); Anion Gap 11 (5-15); BUN 24 mg/dL (4-19); BUN/Creat Ratio 26.8 RATIO (10-20); Calcium,Total 9.1 mg/dL (7.6-11.0); Carbon Dioxide 24.4 mmol/L (21.0-32.0); Chloride 105 mmol/L (98-108); EST Glomerular Filtration Rate 91 (>60); Globulin 2.4 g/dL (2.2-4.2); Glucose 104 mg/dL (70-99); Potassium 3.8 mmol/L (3.3-5.1); Pro- Brain NATRIURETIC PEPTIDE 2452 pg/mL (<=900); Protein, Total 6.1 g/dL (5.9-8.4); Sodium Level 141 mmol/L (133-145); Total Bilirubin 1.44 mg/dL (0.00-1.30)
--- NOTE | 2025-03-03 18:07 | CT_ITS ---
PROCEDURE: ABDOMEN/PELVIS Wo IV CONT ONLY 03/03/2025 REASON FOR EXAM: ABDOMINAL DISTENTION TECHNIQUE: Abdomen and pelvis CT with intravenous contrast. Coronal and Sagittal reconstruction series were provided. PATIENT PREPARATION: Per protocol CONTRAST: 98 mL Isovue 370 One or more dose reduction techniques were used (e.g., Automated exposure control, adjustment of the mA and/or kV according to patient size, use of iterative reconstruction technique. RADIATION DOSE SUMMARY: CTDlvol: 23.3 mGy DLP: 1285 mGycm COMPARISON: Same day chest radiograph FINDINGS: Lower chest: Cardiomegaly. Aortic valvular calcifications partially imaged. Moderate left pleural effusion. Consolidation in the left lower lobe, likely compressive atelectasis. Trace right pleural effusion. Liver: Mildly hypoattenuating relative to the spleen Gallbladder: Unremarkable Spleen: Unremarkable Pancreas: Normal size without evidence of mass surrounding inflammation or ductal dilation. Adrenals: Unremarkable Kidneys: No hydronephrosis or stone. Subcentimeter hypodense lesions are too small to characterize. Bladder: Unremarkable Reproductive Organs: Prostatomegaly. Bowel: No obstruction or inflammation. Appendix is not well seen and may be surgically absent. Lymph nodes: No significant lymphadenopathy. Vasculature: Mild diffuse atherosclerotic calcifications are noted. Bones: Degenerative changes of the spine. Soft tissues: Fat containing paraumbilical hernia to the right of midline. Fat containing right inguinal hernia anasarca. CT/Abdomen/Pelvis W IV Cont ONLY IMPRESSION: 1. No evidence of bowel obstruction. 2. Cardiomegaly with moderate left and trace right pleural effusions, in addit ion to anasarca, may be the result of fluid overload. 3. Findings suggestive of mild hepatic steatosis. 4. Fat containing left paraumbilical and right inguinal hernias. Reading Location: [id number]
[2025-03-03 18:16] LABS: Mucous, Urine 1+ /hpf (<or=2+); Squamous Epithelial Cells - UA 0-5 SEEN /hpf (0-5); White Blood Cells 0-5 SEEN /hpf (0-5)
[2025-03-03 18:27] VITALS: BP 137/83; PULSE 79; RESP 18; O2SAT 95
[2025-03-03 19:01] VITALS: O2SAT 94; BMI 36.3
[2025-03-03] MEDS: Furosemide 40 MG/4 ML Vial IV (19:18)
[2025-03-03 20:00] VITALS: BP 123/103; PULSE 77; PULSE 81; RESP 17; RESP 18; TEMP 36.6; O2SAT 95
--- NOTE | 2025-03-03 20:09 | PCM.HP.STD ---
HPI - General General Date of Admission: 03/03/25 Date of Service: 03/03/25 Chief Complaint: Weight gain, edema, orthopnea, dyspnea. HPI Narrative The patient is a 74 y/o M w/ PMHx: Hx VTE, HTN, Diabetes mellitus type II with chronic neuropathy, HTN, HLD who presents to the [facility] ED on 03/03/2025 with history of worsening bilateral lower extremity edema in addition to swelling up to his abdomen with dyspnea worse with exertion as well as a 20 pound weight gain over the last week worse with any attempted exertion with significant dyspnea and increased fatigue prompting PCP evaluation with referral eventually to the ED given his significant findings. He denies any associated chest discomfort or recent URI type illness. Patient notes significant orthopnea and whenever he exerts himself he has to rest before he can continue. Workup in the ED included T98.1, heart rate 96, BP 148/115, respiratory rate 19, 98% room air with most recent repeat vitals heart rate 79, BP 137/83, respiratory rate 18, 95% on room air, CBC with WC 8.5, hemoglobin 12.5, MCV 88.3, platelet 233 without marked shift, CMP with BUN/creat 20/0.90, GFR 91, glucose 104, T. bili 1.44 otherwise hepatic profile unremarkable, troponin 2452, urinalysis not marked appearing, chest x-ray with moderate left pleural effusion, cardiomegaly, nodular opacities in the left perihilar region measuring up to 8 mm, CT abdomen and pelvis with no acute intra-abdominal findings aside mild hepatic steatosis, fat-containing left periumbilical and right inguinal hernias as well as mild anasarca, cardiomegaly with moderate left and trace right pleural effusion, EKG with SR with PAC/PVC without acute evidence of ischemia. In the ED patient ministered Lasix 40 mg IV x 1. PFSH Medical History Deep vein thrombosis (DVT) Hyperlipidemia Actinic keratosis Seborrheic keratosis Skin cancer Murmur, cardiac Chronic sciatica Hypertension Type 2 diabetes mellitus Home Medications ?Medication ?Instructions ?Recorded ?Last Taken ?Type acetaminophen 500 mg tablet 500 mg PO Q6H PRN pain 04/10/19 03/03/25 History (Tylenol Extra Strength) cholecalciferol (vitamin D3) 125 125 mcg PO DAILY 08/04/21 03/03/25 History mcg (5,000 unit) capsule potassium 99 mg tablet 99 mg PO BID 08/04/21 03/03/25 History zinc 50 mg tablet 50 mg PO DAILY 08/04/21 03/03/25 History sildenafil 50 mg tablet 50 mg PO DAILY PRN sexual activity 02/16/22 Unknown Rx #30 tabs magnesium oxide 250 mg PO DAILY 12/01/22 03/03/25 History 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,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,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 ea 05/21/24 Unknown Rx (FreeStyle Emmanuel 3 [place]) flash glucose sensor (FreeStyle #1 ea 05/21/24 Unknown Rx Emmanuel 2 Sensor kit) pen needle, diabetic 32 gauge x #100 ea 06/19/24 Unknown Rx 12/15 (Comfort EZ Pen [place]) ascorbic acid (vitamin C) 1,000 mg 2 g PO Q6H 07/03/24 03/03/25 History tablet atorvastatin 40 mg tablet 40 mg PO DAILY #90 tabs 09/04/24 03/03/25 Rx insulin glargine 100 unit/mL (3 45 unit (0.45 mL) subcut QPM #15 mL 10/25/24 03/02/25 Rx mL) subcutaneous pen (Lantus Solostar U-100 Insulin) hydrochlorothiazide 12.5 mg tablet 12.5 mg PO QAM #90 tabs 10/26/24 03/03/25 Rx metformin 500 mg tablet,extended 500 mg PO BID #180 tabs 10/26/24 03/03/25 Rx release 24 hr amlodipine 5 mg-benazepril 10 mg 1 cap PO QDAY #90 caps 12/10/24 03/03/25 Rx capsule vitamin K2 100 mcg capsule 100 mcg PO DAILY 03/03/25 03/03/25 History Allergy/AdvReac Type Severity Reaction Status Date / Time Penicillins Allergy Severe unknown Verified 12/18/24 16:25 Family History Father Glaucoma Hypertension Heart disease Cancer prostate Mother Hypertension Colon cancer Grandfather CVA (cerebral vascular accident) Surgical History H/O cataract removal with insertion of prosthetic lens history of torn upper quad History of hernia repair Social History household members: spouse Smoking Status: Never smoker alcohol intake: never substance use type: does not use what type of physical activity do you participate in: walking and bicycling ROS ROS Narrative Admission Review of Systems: CONSTITUTIONAL: No weight loss, fever, chills, + weakness or fatigue. HEENT: Eyes: No visual loss, blurred vision, double vision or yellow sclerae. Ears, Nose, Throat: No hearing loss, sneezing, congestion, runny nose or sore throat. SKIN: No rash or itching, lesions, wounds. CARDIOVASCULAR: + Weight gain 20 pounds, increased peripheral edema, orthopnea. No chest pain, chest pressure or chest discomfort, palpitations, syncopal events. RESPIRATORY: + Dyspnea, worse with exertion, nonproductive cough. No marked productive sputum, wheezing, hemoptysis. GASTROINTESTINAL: + Abdominal fullness/swelling sensation. No anorexia, nausea, vomiting or diarrhea, abdominal pain, melena, BRBPR. GENITOURINARY: No dysuria, frequency, urgency or retention. NEUROLOGICAL: No headache, dizziness, syncope, paralysis, ataxia, numbness or tingling in the extremities, focal weakness, change in bowel or bladder control, seizure. MUSCULOSKELETAL: + muscle, back pain, joint pain or stiffness. HEMATOLOGIC: + Current evidence of anemia, no history of easy bleeding or bruising. LYMPHATICS: No enlarged nodes. No history of splenectomy. PSYCHIATRIC: No history of depression or anxiety. ENDOCRINOLOGIC: No reports of sweating, cold or heat intolerance. No polyuria or polydipsia. ALLERGIES: No history of asthma, hives, eczema or rhinitis. Vital Signs Vital Signs Vital Signs: 03/03/25 16:29 03/03/25 16:29 03/03/25 18:27 Temperature 98.1 F Temperature Source Oral Pulse Rate 96 79 Respiratory Rate 19 H 18 Respiratory Effort Normal Non-Labored Respiratory Pattern Normal Blood Pressure 148/115 H 137/83 H Blood Pressure Mean 126 101 Pulse Ox 98 95 Oxygen Delivery Method Room Air Room Air Weight Weight: 276 lb 0.3 oz Body Mass Index (BMI) 36.3 Physical Exam Narrative Physical Examination: General: Awake, alert, oriented x 3 and cooperative, seated upright in the ED bed in no apparent distress, fatigued appearing. Skin: Normal color, normal turgor, no icterus, no cyanosis. HEENT: AT/NC, EOMI, PERRLA, MMM, no carotid bruits, + JVD noted. Lungs: Diminished, greater bases, left greater than right, mild rales, no rhonchi or wheezing, no evidence of any distress. Heart: Regular rate and rhythm; no gallop, rub audible, + SM. Abdomen: Soft, obese, NTTP, not markedly distended or tympanitic, hyperactive BS, no obvious HSM. Extremities: No cyanosis, no clubbing, significant pedal to upper thigh 3+ pitting edema and some of the lower distal abdomen. Neurological: Patient awake, alert, oriented as noted cognitive function intact; pupils equally reactive to light and accommodation, cranial nerves grossly normal, moving all 4 extremities, no focal deficits, strength moderately to severely globally decreased secondary to acute presentation complaints. Psychiatric: Affect appears mildly flat, fatigued, no acute evidence of depressive or anxiety feelings. Results Lab / Micro Data 03/03/25 17:17 03/03/25 17:17 Labs: Laboratory Results - last 24 hr 03/03/25 17:17: WBC 8.5, RBC 4.26 L, Hgb 12.5 L, Hct 37.6 L, MCV 88.3, MCH 29.3, MCHC 33.2, RDW Std Deviation 50.3 H, RDW Coeff of Nereyda 15.6 H, Plt Count 233, MPV 9.4, Immature Gran % (Auto) 0.400, Neut % (Auto) 68.9, Lymph % (Auto) 19.5, [place] % (Auto) 9.9, Eos % (Auto) 0.8, Baso % (Auto) 0.5, Absolute Neuts (auto) 5.9, Absolute Lymphs (auto) 1.66, Nucleated RBC % 0, Sodium 141, Potassium 3.8, Chloride 105, Carbon Dioxide 24.4, Anion Gap 11, BUN 24 H, Creatinine 0.90, Est GFR (MDRD) Non-Af 91, BUN/Creatinine Ratio 26.8 H, Glucose 104 H, Calcium 9.1, Total Bilirubin 1.44 H, AST 28, ALT 24, Alkaline Phosphatase 59, NT pro BNP II 2452 H, Total Protein 6.1, Albumin 3.7, Globulin 2.4, Albumin/Globulin Ratio 1.6 03/03/25 17:25: Urine Color Yellow, Urine Clarity Clear, Urine pH 6.0, Ur Specific [place] 1.015, Urine Protein 30 H, Urine Glucose (UA) Normal, Urine Ketones 5 H, Urine Occult Blood Negative, Urine Nitrite Negative, Urine Bilirubin Negative, Urine Urobilinogen 1 H, Ur Leukocyte Esterase Negative, Urine RBC 0 SEEN, Urine WBC 0-5 SEEN, Ur Squamous Epith Cells 0-5 SEEN, Urine Bacteria 0 SEEN, Urine Mucus 1+ Imaging Radiology Impression Chest X-Ray 03/03/25 17:35 IMPRESSION: 1. Moderate left pleural effusion. 2. Cardiomegaly. 3. Nodular opacities in the left perihilar region measuring up to 8 mm, likely calcified nodes or calcified pulmonary granulomas. Recommend attention on upcoming CT. Reading Location: [id number] Abdomen/Pelvis CT 03/03/25 18:07 IMPRESSION: 1. No evidence of bowel obstruction. 2. Cardiomegaly with moderate left and trace right pleural effusions, in addition to anasarca, may be the result of fluid overload. 3. Findings suggestive of mild hepatic steatosis. 4. Fat containing left paraumbilical and right inguinal hernias. Reading Location: [id number] Assessment & Plan Assessment/Plan (1) Acute exacerbation of chronic heart failure: PLAN: Plan The patient is a 74 y/o M w/ PMHx: Hx VTE, HTN, Diabetes mellitus type II with chronic neuropathy, HTN, HLD who presents to the [facility] ED on 03/03/2025 with history of worsening bilateral lower extremity edema in addition to swelling up to his abdomen with dyspnea worse with exertion as well as a 20 pound weight gain over the last week worse with any attempted exertion with significant dyspnea and increased fatigue prompting PCP evaluation with referral eventually to the ED given his significant findings. #1. Suspected Acute Decompensated HF unclear subtype with associated moderate left-sided and trace right-sided pleural effusions in addition to notable anasarca: Patient administered IV lasix in the ED, will admit to PCU, maintain on cardiac telemetry, obtain cardiac enzyme series, obtain serial EKGs, continue IV lasix diuresis, monitor I/Os, maintain on intake restriction, obtain TSH and magnesium level. Most recent ECHO noted 08/13/2021 with noted grossly normal LV size, wall motion and systolic function, EF 55%, mildly enlarged LA, trivial MVI, trivial TBI, mild aortic stenosis, borderline enlarged aortic root diastolic function indeterminate with repeat requested. Will place neck lisa wraps with lower extremity elevation if able to tolerate. PT/OT/case management consulted for discharge planning given severity of fatigue and debility associated with his presentation. #2. Incidentally noted nodular opacities left perihilar region: Per chest x-ray measuring up to 8 mm, possibly calcified nodes or calcified pulmonary granulomas, recommend follow-up dedicated chest CT outpatient. #3. Normocytic anemia, new in appearance: Admission globin 12.5, MCV 88.3 and significantly overloaded presentation as noted above #1, baseline hemoglobin previously primarily 13, will continue to trend especially with treatment as noted above #1. #4. Hypertension: Continue home regimen including amlodipine, benazepril, IV Lasix as noted above, PRN hydralazine. #5. Hyperlipidemia: Continue home statin regimen. AM FLP. #6. Diabetes mellitus type II with chronic neuropathy: Hold oral home regimen, continue home insulin regimen, ADA diet, accu checks w/ ISS. Most recent noted hemoglobin A1c in the system 12/18/2024 HgbA1c 8.1%. #7. History of VTE: Patient with previous documented history DVT, currently not chronically anticoagulated, maintain on chemoprophylaxis as noted. #8. Obesity: Weight loss and lifestyle changes encouraged. #9. DVT prophylaxis: Lovenox. #10. CODE status: Patient NA is his who is present and living will is currently in place. Discussed CODE status at length including difference between FULL code, DNR-CCA and DNR-CC status. Following discussions about the differences in these status, requested Full Code status. Charges/Coding Visit Charges Inpatient E&M: 62139 Init Hosp L3
--- NOTE | 2025-03-03 21:28 | ECHOD_ITS ---
Reason For Study Reason For Study: CHF Procedure This was a 2D Doppler, Color Flow transthoracic echocardiogram. Exam performed portable in patient room. Left Ventricle Moderately dilated left ventricular cavity. Severe generalized LV hypokinesis. Estimated LVEF 20-25%. Stage III diastolic dysfunction. Right Ventricle Normal RV size. Mild global right ventricular systolic dysfunction. Atria The left atrium is severely enlarged. The right atrium is moderately enlarged. Mitral Valve Mild (1+) mitral valve insufficiency. Tricuspid Valve Mild tricuspid valve insufficiency. Right ventricular systolic pressure estimated to be 63 mmHg. Aortic Valve Moderately calcified aortic valve. Moderate aortic valve stenosis. Mean peak gradient 33 mmHg. Valve area 1.1 cm??. Pulmonic Valve The pulmonic valve is not well visualized. Great Vessels Mildly dilated aortic root. Pericardium/Pleural No pericardial effusion. MMode/2D Measurements & Calculations LVIDd: 6.3 cm IVSd: 1.2 cm LVOT diam: 2.5 cm LVIDs: 5.6 cm LVPWd: 1.3 cm LVOT area: 5.1 cm2 RVDd: 4.6 cm FS: 10.9 % Ao root diam: 4.0 cm LAV(MOD-bp): 138.4 ml LVAd ap4: 51.8 cm2 LA dimension: 5.2 cm LAV(MOD-bp) Indexed: 56.7 ml/m2 LVLd ap4: 9.9 cm LAV(MOD-sp2): 143.9 ml EDV(MOD-sp4): 227.6 ml LAV(MOD-sp4): 130.5 ml EDV(sp4-el): 231.0 ml LVAs ap4: 40.7 cm2 LVLs ap4: 8.6 cm ESV(MOD-sp4): 155.8 ml ESV(sp4-el): 163.2 ml EF(MOD-sp4): 31.5 % EF(sp4-el): 29.4 % SV(MOD-sp4): 71.8 ml SV(sp4-el): 67.8 ml Ao sinus diam: 3.9 cm SI(MOD-sp4): 29.4 ml/m2 Ao ST [place]: 3.1 cm LA A4 area: 33.3 cm2 LA dimension(2D): 5.1 cm TAPSE: 1.6 cm RA A4 area: 26.2 cm2 Doppler Measurements & Calculations MV E max kalen: 108.9 cm/sec Lat Peak E' Kalen: 13.0 cm/sec Med Peak E' Kal[place]: 6.4 cm/sec E/E' lat: 8.4 E/E' med: 17.0 MV V2 max: 131.1 cm/sec Ao V2 max: 358.6 cm/sec LV V1 max: 81.8 cm/sec MV max P.9 mmHg Ao max P.5 mmHg LV V1 max P.7 mmHg MV V2 mean: 77.5 cm/sec Ao V2 mean: 271.0 cm/sec LV V1 mean P.8 mmHg MV mean P.8 mmHg Ao mean P.9 mmHg LV V1 mean: 62.8 cm/sec MV V2 VTI: 27.8 cm Ao V2 VTI: 72.6 cm LV V1 VTI: 15.9 cm MVA(VTI): 2.9 cm2 AV (velocity ratio): 0.22 JESUS(I,D): 1.1 cm2 JESUS(V,D): 1.2 cm2 MR max kalen: 616.9 cm/sec SV(LVOT): 80.9 ml TR max kalen: 345.5 cm/sec MR max P.2 mmHg TR max P.7 mmHg MR mean kalen: 436.4 cm/sec MR mean P.5 mmHg MR VTI: 172.8 cm ECHO/Echo Complete Interpretation Summary Moderately dilated left ventricular cavity. Severe generalized LV hypokinesis. Estimated LVEF 20-25%. Stage III diastolic dysfunction. Mild global right ventricular systolic dysfunction. The left atrium is severely enlarged. The right atrium is moderately enlarged. Mild (1+) mitral valve insufficiency. Mild tricuspid valve insufficiency. Right ventricular systolic pressure estimated to be 63 mmHg. Moderately calcified aortic valve. Moderate aortic valve stenosis. Mean peak gr adient 33 mmHg. Valve area 1.1 cm??. Mildly dilated aortic root. Organized left pleural effusion. Consider CT chest for further evaluation. Ordering Physician: Jolie Osman Referring Physician: Berry Lind Performed By: Brice Boyce RCS
[2025-03-03 21:30] VITALS: BP 141/114; PULSE 76; RESP 18; TEMP 36.1; O2SAT 94
[2025-03-03 21:36] VITALS: BMI 34.5
[2025-03-03 22:05] LABS: Magnesium 1.8 mg/dL (1.5-2.2)
[2025-03-03] MEDS: Atorvastatin Calcium 40 MG Tablet PO (22:07)
[2025-03-03 23:25] LABS: Bedside Glucose 66 mg/dL (74-106)
[2025-03-04 00:30] LABS: Troponin T High Sensitivity 45 ng/L (<=22)
[2025-03-04 01:54] LABS: Troponin T High Sens 2 HR 42 ng/L (<=22)
[2025-03-04 03:05] VITALS: BP 122/86; PULSE 67; RESP 18; TEMP 36.2; O2SAT 95
[2025-03-04 03:59] LABS: Absolute Lymphocyte Count 2.06 X10^3/uL (0.83-4.51); Absolute Neutrophil Count 4.4 X10^3/uL (2.0-7.7); Basophil# 0.05 X10^3/uL; Basophil% 0.7 % (0-1); Eosinophils% 1.3 % (0-5); Hematocrit 38.1 % (40-54); Hemoglobin 12.5 g/dL (13.0-16.5); Lymphocyte # 2.06 X10^3/ul (0.83-4.51); Lymphocyte % 27.6 % (19-41); Mean Corp Hgb Conc 32.8 g/dL (32-36); Mean Corpuscular Volume 88.4 fL (80-94); Mean Platelet Vol. 9.5 fl (6.2-12.0); Monocyte# 0.86 X10^3/uL; Monocyte% 11.5 % (0-10); NRBC Flagged by Analyzer 0 % (0-5); Neutrophil # 4.38 X10^3/uL (2.7-7.7); Neutrophil % 58.6 % (47-70); Platelet Count 223 K/mm3 (150-450); RBC Distribution Width CV 15.5 % (11.6-14.6); RBC Distribution Width SD 49.9 fl (35.1-43.9); Red Blood Count 4.31 M/mm3 (4.6-6.2); White Blood Count 7.5 K/mm3 (4.4-11.0)
[2025-03-04 04:16] LABS: Troponin T High Sens 4 HR 39 ng/L (<=22)
[2025-03-04 04:29] LABS: ALB/GLOB Ratio 1.3 RATIO (0.9-2.4); AST(SGOT) 25 U/L (<=37); Alanine Aminotransfer ALT/SGPT 23 U/L (<=46); Albumin, Serum 3.7 g/dL (3.4-4.8); Alkaline Phosphatase 60 U/L (40-129); Anion Gap 11 (5-15); BUN 19 mg/dL (4-19); BUN/Creat Ratio 23.4 RATIO (10-20); Calcium,Total 9.2 mg/dL (7.6-11.0); Carbon Dioxide 25.8 mmol/L (21.0-32.0); Chloride 104 mmol/L (98-108); Creatinine, Serum 0.82 mg/dL (0.70-1.20); EST Glomerular Filtration Rate 93 (>60); Globulin 2.8 g/dL (2.2-4.2); Glucose 115 mg/dL (70-99); Potassium 3.4 mmol/L (3.3-5.1); Protein, Total 6.5 g/dL (5.9-8.4); Sodium Level 141 mmol/L (133-145); Total Bilirubin 1.24 mg/dL (0.00-1.30)
[2025-03-04 06:00] VITALS: BMI 34.2
[2025-03-04 06:23] LABS: Cholesterol 94 mg/dL (<=200); High Density Lipoprotein 53 mg/dL; Low Density Lipoprotein Calc. 34 mg/dL; Triglycerides 36 mg/dL; Very Low Density Lipoprotein 7 mg/dL (5-40); cholesterol:hdl ratio screen 1.78
[2025-03-04 06:55] LABS: Bedside Glucose 86 mg/dL (74-106)
[2025-03-04 07:53] VITALS: BP 161/96; PULSE 87; RESP 16; TEMP 36.5; O2SAT 97
--- NOTE | 2025-03-04 08:03 | PCM.PN.HOSP ---
Reason for Visit Reason for Visit: Diagnoses Heart failure, unspecified (03/03/25) Subjective Subjective Breathing better. Improved LE edema. Objective Data Objective Data Vital Signs: Vital Signs Temp Pulse Resp BP Pulse Ox O2 Del Method 36.2 C L 67 18 122/86 H 95 Room Air 03/04/25 03:05 03/04/25 03:05 03/04/25 03:05 03/04/25 03:05 03/04/25 03:05 03/04/25 03:05 Oxygen Delivery Method Room Air Weight: 121.1 kg Body Mass Index (BMI) 34.2 Intake & Output: Intake and Output for Last 24 Hours 03/02/25 03/03/25 03/04/25 23:59 23:59 23:59 Output Total 1250 / 1250 825 / 825 Balance -1250 / -1250 -825 / -825 Lab / Micro Data 03/04/25 03:50 03/04/25 03:50 Labs: Laboratory Results - last 24 hr 03/03/25 17:17: WBC 8.5, RBC 4.26 L, Hgb 12.5 L, Hct 37.6 L, MCV 88.3, MCH 29.3, MCHC 33.2, RDW Std Deviation 50.3 H, RDW Coeff of Nereyda 15.6 H, Plt Count 233, MPV 9.4, Immature Gran % (Auto) 0.400, Neut % (Auto) 68.9, Lymph % (Auto) 19.5, [place] % (Auto) 9.9, Eos % (Auto) 0.8, Baso % (Auto) 0.5, Absolute Neuts (auto) 5.9, Absolute Lymphs (auto) 1.66, Nucleated RBC % 0, Sodium 141, Potassium 3.8, Chloride 105, Carbon Dioxide 24.4, Anion Gap 11, BUN 24 H, Creatinine 0.90, Est GFR (MDRD) Non-Af 91, BUN/Creatinine Ratio 26.8 H, Glucose 104 H, Calcium 9.1, Magnesium 1.8, Total Bilirubin 1.44 H, AST 28, ALT 24, Alkaline Phosphatase 59, NT pro BNP II 2452 H, Total Protein 6.1, Albumin 3.7, Globulin 2.4, Albumin/Globulin Ratio 1.6 03/03/25 17:25: Urine Color Yellow, Urine Clarity Clear, Urine pH 6.0, Ur Specific [place] 1.015, Urine Protein 30 H, Urine Glucose (UA) Normal, Urine Ketones 5 H, Urine Occult Blood Negative, Urine Nitrite Negative, Urine Bilirubin Negative, Urine Urobilinogen 1 H, Ur Leukocyte Esterase Negative, Urine RBC 0 SEEN, Urine WBC 0-5 SEEN, Ur Squamous Epith Cells 0-5 SEEN, Urine Bacteria 0 SEEN, Urine Mucus 1+ 03/03/25 22:03: POC Glucose 66 L 03/03/25 23:37: Troponin T High Sens 45 H 03/04/25 01:29: Troponin T Hi Sens 2 Hr 42 H 03/04/25 03:50: WBC 7.5, RBC 4.31 L, Hgb 12.5 L, Hct 38.1 L, MCV 88.4, MCH 29.0, MCHC 32.8, RDW Std Deviation 49.9 H, RDW Coeff of Nereyda 15.5 H, Plt Count 223, MPV 9.5, Immature Gran % (Auto) 0.300, Neut % (Auto) 58.6, Lymph % (Auto) 27.6, [place] % (Auto) 11.5 H, Eos % (Auto) 1.3, Baso % (Auto) 0.7, Absolute Neuts (auto) 4.4, Absolute Lymphs (auto) 2.06, Nucleated RBC % 0, Sodium 141, Potassium 3.4, Chloride 104, Carbon Dioxide 25.8, Anion Gap 11, BUN 19, Creatinine 0.82, Estim Creat Clear Calc 113.10, Est GFR (MDRD) Non-Af 93, BUN/Creatinine Ratio 23.4 H, Glucose 115 H, Calcium 9.2, Total Bilirubin 1.24, AST 25, ALT 23, Alkaline Phosphatase 60, Troponin T Hi Sens 4Hr 39 H, Total Protein 6.5, Albumin 3.7, Globulin 2.8, Albumin/Globulin Ratio 1.3, Triglycerides 36, Cholesterol 94, LDL Cholesterol, Calc 34, VLDL Cholesterol 7, HDL Cholesterol 53, Cholesterol/HDL Ratio 1.78, TSH 1.470 03/04/25 06:20: POC Glucose 86 Radiography Diagnostic Testing: Radiology Impression Chest X-Ray 03/03/25 17:35 IMPRESSION: 1. Moderate left pleural effusion. 2. Cardiomegaly. 3. Nodular opacities in the left perihilar region measuring up to 8 mm, likely calcified nodes or calcified pulmonary granulomas. Recommend attention on upcoming CT. Reading Location: [id number] Abdomen/Pelvis CT 03/03/25 18:07 IMPRESSION: 1. No evidence of bowel obstruction. 2. Cardiomegaly with moderate left and trace right pleural effusions, in addition to anasarca, may be the result of fluid overload. 3. Findings suggestive of mild hepatic steatosis. 4. Fat containing left paraumbilical and right inguinal hernias. Reading Location: [id number] Physical Exam Const alert and no apparent distress HEENT head/scalp atraumatic and moist oral mucous membranes Resp normal respiratory effort, no retractions, no use of accessory muscles and clear to auscultation bilaterally Cardio regular rate, regular rhythm, S1 normal heart sound and S2 normal heart sound GI normal to inspection, nondistended, normoactive bowel sounds, soft to palpation, non-tender and non-distended Extremity General Extremity: edema bilateral lower extremity Details: moderate Neuro oriented x3 and moves all extremities Sensorium / Orientation: awake and alert Psych affect normal Assessment & Plan Assessment/Plan (1) Congestive heart failure: PLAN: Acute HFrEF. Echo shows an EF of 2--25%, stage III DD, Severely LAE, moderate URSULA, RVSP 63mmHg, Moderate (peak gradient 33mmHg, valve area 1.1 cm2) on IV furosemide. Continue lisinopril DW Dr. Kenyon, who will be consulted (2) Pleural effusion, left: PLAN: Likely transudative given the CHF. Hold off on thoracentesis at this time as he is not significantly symptomatic from it at this time. (3) Aortic stenosis: PLAN: Moderate Complicate HF with weak LV. May need AVR, defer to referral timing to cardiology PLAN: Plan Chronic conditions: SSI and glargine HTN: amlodipine, lisinopril VTE prophylaxis: LMWH. Greater than 50 minutes of which greater than 50% of the time was at bedside counseling the patient about CHF, echo findings; then discussing with cardiology. Charges/Coding Visit Charges Inpatient E&M: 75852 Subs Hosp L3
[2025-03-04] MEDS: Aspirin E.C. 81 MG Tablet PO (08:21)
[2025-03-04 08:28] VITALS: O2SAT 92
[2025-03-04] MEDS: amLODIPine 5 MG Tablet PO (10:21)
[2025-03-04] MEDS: Enoxaparin 40 MG/0.4 ML Syringe SC (10:21)
[2025-03-04] MEDS: Lisinopril 10 MG Tablet PO (10:21)
[2025-03-04] MEDS: Furosemide 40 MG/4 ML Vial IV ×2 (10:30→17:21)
[2025-03-04 11:51] LABS: Bedside Glucose 154 mg/dL (74-106)
--- NOTE | 2025-03-04 11:51 | CASEMGMT ---
SDOH must have been entered in error. Patient denied any concerns. Tatianna GAMING
[2025-03-04 14:25] VITALS: BP 124/76; PULSE 64; RESP 16; TEMP 36.7; O2SAT 99
--- NOTE | 2025-03-04 15:09 | PCM.CONS.C ---
Assessment & Plan Assessment/Plan (1) Congestive heart failure: QUALIFIERS: Heart failure type: systolic Heart failure chronicity: acute Qualified Code(s): I50.21 - Acute systolic (congestive) heart failure PLAN: Patient has newly diagnosed heart failure with an ejection fraction of 20-25% in a global fashion. The patient has moderate to moderate severe aortic stenosis given the patient's severe LV dysfunction mean gradient is 33 mmHg. The murmur has a consistency of severe aortic stenosis. Patient has recently developed signs and symptoms of congestive failure over the last 2 weeks that have been progressive. Plan is to titrate the patient's medical therapy to guideline directed medical therapy. We will discontinue the amlodipine and hydrochlorothiazide and replace this with Coreg and spironolactone. Will continue the VANDA inhibitor. The patient should also be considered for SGLT2 inhibitor therapy. The patient will continue with diuresis he is down 5 pounds in the last 24 hours. Once the patient is titrated to guideline directed medical therapy a right and left heart catheterization will be performed which can be delayed for an ambulatory setting. Once that is performed further evaluation and/or treatment options will be considered for the valvular heart disease which is presumed to be the etiology of his LV dysfunction. However, the patient is diabetic and may have occult coronary disease. (2) Aortic stenosis: QUALIFIERS: Cardiac valve disease etiology: nonrheumatic Qualified Code(s): I35.0 - Nonrheumatic aortic (valve) stenosis PLAN: The patient has at least moderate possibly moderately severe aortic stenosis with a mean gradient of 33 mmHg. This is in the face of an ejection fraction of 20-25% suggesting low outflow critical aortic stenosis. (3) Hypertension: QUALIFIERS: Hypertension type: essential hypertension Qualified Code(s): I10 - Essential (primary) hypertension PLAN: Blood pressure is still adequate. We will discontinue the amlodipine but continue the VANDA inhibitor. Will also switch the hydrochlorothiazide to spironolactone given his normal renal function and low potassium. (4) Type 2 diabetes mellitus: QUALIFIERS: Diabetes mellitus jewel hole driller insulin use: without jewel hole driller use Diabetes mellitus complication status: with skin complications Diabetes mellitus complication detail: with other skin complication Qualified Code(s): E11.628 - Type 2 diabetes mellitus with other skin complications PLAN: Will defer to the primary service addition of SGLT2 inhibitor given his diabetic therapeutic options. PLAN: Plan 1. DC amlodipine and hydrochlorothiazide. 2. Spironolactone 25 mg daily. 3. Will add Coreg 6.25 mg twice daily 4. Continue with IV diuresis with furosemide. 5. Will continue to follow-up with you and titrate medical therapy as blood pressure and heart rate respond. HPI Consult Data Date of Consult: 03/04/25 HPI Narrative Reason for Consultation: New onset congestive heart failure HPI Narrative: SPARKLE IRVING, is a 74 M who presents with a 2-week history of progressive dyspnea on exertion, 20 pound weight gain, and lower extremity edema. Patient has no prior history of cardiac issues. He is diabetic and hypertensive. He does have a family history of valvular heart disease but no history of ischemic heart disease. The patient does not smoke. He has not had any recent viral infections in the last 6 to 12 weeks. And is actually been in relatively good health until 2 weeks ago. The patient carries a longstanding history of a mild heart murmur. She also has a longstanding history of hypertension which has been treated. He has never been on statin therapy. Patient presented to the emergency department 03/03/2025. His EKG at that point in time showed normal sinus rhythm at 80 bpm with PACs and nonspecific interventricular conduction delay. Telemetry now shows that he is in sinus rhythm at 68 bpm. The patient also has a first-degree AV block. The patient's echocardiogram done on this admission showed global systolic dysfunction ejection fraction estimated at 20-25%. He has moderately severe aortic stenosis with a mean gradient of 33 mmHg. He had severe left atrial enlargement moderate right atrial enlargement 1+ mitral regurgitation mild tricuspid regurgitation with pulmonary artery pressure of 63 mmHg. The patient's initial BNP was 2452. Troponins were 45/42/39. The patient has been on IV diuretic since admission and reports that he is breathing easier and his lower extremity edema is better he is also down 5 pounds from admission by his report. [facility] Medical History Deep vein thrombosis (DVT) Hyperlipidemia Actinic keratosis Seborrheic keratosis Skin cancer Murmur, cardiac Chronic sciatica Hypertension Type 2 diabetes mellitus Home Medications ?Medication ?Instructions ?Recorded ?Last Taken ?Type acetaminophen 500 mg tablet 500 mg PO Q6H PRN pain 04/10/19 03/03/25 History (Tylenol Extra Strength) cholecalciferol (vitamin D3) 125 125 mcg PO DAILY 08/04/21 03/03/25 History mcg (5,000 unit) capsule potassium 99 mg tablet 99 mg PO BID 08/04/21 03/03/25 History zinc 50 mg tablet 50 mg PO DAILY 08/04/21 03/03/25 History magnesium oxide 250 mg PO DAILY 12/01/22 03/03/25 History 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,newcomer hostess,cont #1 ea 05/21/24 Unknown Rx (FreeStyle Emmanuel 3 [place]) flash glucose sensor (FreeStyle #1 ea 05/21/24 Unknown Rx Emmanuel 2 Sensor kit) pen needle, diabetic 32 gauge x #100 ea 06/19/24 Unknown Rx 12/15 (Comfort EZ Pen [place]) ascorbic acid (vitamin C) 1,000 mg 2 g PO Q6H 07/03/24 03/03/25 History tablet atorvastatin 40 mg tablet 40 mg PO DAILY #90 tabs 09/04/24 03/03/25 Rx insulin glargine 100 unit/mL (3 45 unit (0.45 mL) subcut QPM #15 mL 10/25/24 03/02/25 Rx mL) subcutaneous pen (Lantus Solostar U-100 Insulin) hydrochlorothiazide 12.5 mg tablet 12.5 mg PO QAM #90 tabs 10/26/24 03/03/25 Rx metformin 500 mg tablet,extended 500 mg PO BID #180 tabs 10/26/24 03/03/25 Rx release 24 hr amlodipine 5 mg-benazepril 10 mg 1 cap PO QDAY #90 caps 12/10/24 03/03/25 Rx capsule vitamin K2 100 mcg capsule 100 mcg PO DAILY 03/03/25 03/03/25 History Allergy/AdvReac Type Severity Reaction Status Date / Time Penicillins Allergy Severe unknown Verified 12/18/24 16:25 Family History Father Glaucoma Hypertension Heart disease Cancer prostate Mother Hypertension Colon cancer Grandfather CVA (cerebral vascular accident) Surgical History H/O cataract removal with insertion of prosthetic lens history of torn upper quad History of hernia repair Social History household members: spouse Smoking Status: Never smoker alcohol intake: never substance use type: does not use what type of physical activity do you participate in: walking and bicycling ROS Constitutional Constitutional: Reports as per HPI Eyes Eyes: Reports systems reviewed and no addt'l complaints, except as documented ENT HEENT: Reports systems reviewed and no addt'l complaints, except as documented Cardiovascular Cardiovascular: Reports as per HPI Respiratory/Chest Respiratory/Chest: Reports as per HPI Gastrointestinal Gastrointestinal: Reports as per HPI Genitourinary Genitourinary: Reports as per HPI Musculoskeletal Musculoskeletal: Reports systems reviewed and no addt'l complaints, except as documented Integumentary Integumentary: Reports systems reviewed and no addt'l complaints, except as documented Neurologic Neurologic: Reports systems reviewed and no addt'l complaints, except as documented Psychiatric Psychiatric: Reports systems reviewed and no addt'l complaints, except as documented Endocrine Endocrinology: Reports as per HPI Hematologic/Lymphatic Hematologic/Lymphatic: Reports systems reviewed and no addt'l complaints, except as documented Allergic/Immunologic Allergic/Immunologic: Reports systems reviewed and no addt'l complaints, except as documented Physical Exam Const alert and oriented x3 HEENT normocephalic Eyes EOMs intact bilaterally Neck supple and no JVD Carotids: Negative for bruit Chest inspection of chest normal Resp normal respiratory effort and clear to auscultation bilaterally Cardio Rate: regular rate Rhythm: regular rhythm Heart Sounds: S1 normal, S2 normal and murmur systolic III/ harsh left sternal border, right sternal border and sternal notch; Negative for click or gallop GI soft to palpation Extremity Extremity Narrative: Both lower extremities wrapped. Neuro Neuro Narrative: Alert and oriented x 3. Psych mental status grossly normal Risk Stratification Risk Stratification Applicable: Yes Age >/= 65: Yes >/= 3 CAD Risk Factors (HTN, HLD, DM, family hx of CAD, or current smoker): No Aspirin Use in the Past 7 Days: No Severe Angina (>/= episodes in 24 hours): No EKG ST Changes >/= 0.5mm: No Positive Cardiac Marker: Yes MARY Risk Stratification Score: 2 MARY % Risk: 8% Risk Charges/Coding Visit Charges Inpatient E&M: 82146 Init Hosp L3 Objective Data Vital Signs: Vital Signs Temp Pulse Resp BP Pulse Ox O2 Del Method 98.0 F 64 16 124/76 H 99 Room Air 03/04/25 14:25 03/04/25 14:25 03/04/25 14:25 03/04/25 14:25 03/04/25 14:25 03/04/25 14:25 Oxygen Delivery Method Room Air Weight: 266 lb 15.677 oz Body Mass Index (BMI) 34.2 Intake & Output: Intake and Output for Last 24 Hours 03/02/25 03/03/25 03/04/25 23:59 23:59 23:59 Output Total 1250 / 1250 2049 Balance -1250 / -1250 -2049 / -2049 Lab / Micro Data 03/04/25 03:50 03/04/25 03:50 Labs: Laboratory Results - last 24 hr 03/03/25 17:17: WBC 8.5, RBC 4.26 L, Hgb 12.5 L, Hct 37.6 L, MCV 88.3, MCH 29.3, MCHC 33.2, RDW Std Deviation 50.3 H, RDW Coeff of Nereyda 15.6 H, Plt Count 233, MPV 9.4, Immature Gran % (Auto) 0.400, Neut % (Auto) 68.9, Lymph % (Auto) 19.5, Harding % (Auto) 9.9, Eos % (Auto) 0.8, Baso % (Auto) 0.5, Absolute Neuts (auto) 5.9, Absolute Lymphs (auto) 1.66, Nucleated RBC % 0, Sodium 141, Potassium 3.8, Chloride 105, Carbon Dioxide 24.4, Anion Gap 11, BUN 24 H, Creatinine 0.90, Est GFR (MDRD) Non-Af 91, BUN/Creatinine Ratio 26.8 H, Glucose 104 H, Calcium 9.1, Magnesium 1.8, Total Bilirubin 1.44 H, AST 28, ALT 24, Alkaline Phosphatase 59, NT pro BNP II 2452 H, Total Protein 6.1, Albumin 3.7, Globulin 2.4, Albumin/Globulin Ratio 1.6 03/03/25 17:25: Urine Color Yellow, Urine Clarity Clear, Urine pH 6.0, Ur Specific Placida 1.015, Urine Protein 30 H, Urine Glucose (UA) Normal, Urine Ketones 5 H, Urine Occult Blood Negative, Urine Nitrite Negative, Urine Bilirubin Negative, Urine Urobilinogen 1 H, Ur Leukocyte Esterase Negative, Urine RBC 0 SEEN, Urine WBC 0-5 SEEN, Ur Squamous Epith Cells 0-5 SEEN, Urine Bacteria 0 SEEN, Urine Mucus 1+ 03/03/25 22:03: POC Glucose 66 L 03/03/25 23:37: Troponin T High Sens 45 H 03/04/25 01:29: Troponin T Hi Sens 2 Hr 42 H 03/04/25 03:50: WBC 7.5, RBC 4.31 L, Hgb 12.5 L, Hct 38.1 L, MCV 88.4, MCH 29.0, MCHC 32.8, RDW Std Deviation 49.9 H, RDW Coeff of Nereyda 15.5 H, Plt Count 223, MPV 9.5, Immature Gran % (Auto) 0.300, Neut % (Auto) 58.6, Lymph % (Auto) 27.6, Harding % (Auto) 11.5 H, Eos % (Auto) 1.3, Baso % (Auto) 0.7, Absolute Neuts (auto) 4.4, Absolute Lymphs (auto) 2.06, Nucleated RBC % 0, Sodium 141, Potassium 3.4, Chloride 104, Carbon Dioxide 25.8, Anion Gap 11, BUN 19, Creatinine 0.82, Estim Creat Clear Calc 113.10, Est GFR (MDRD) Non-Af 93, BUN/Creatinine Ratio 23.4 H, Glucose 115 H, Calcium 9.2, Total Bilirubin 1.24, AST 25, ALT 23, Alkaline Phosphatase 60, Troponin T Hi Sens 4Hr 39 H, Total Protein 6.5, Albumin 3.7, Globulin 2.8, Albumin/Globulin Ratio 1.3, Triglycerides 36, Cholesterol 94, LDL Cholesterol, Calc 34, VLDL Cholesterol 7, HDL Cholesterol 53, Cholesterol/HDL Ratio 1.78, TSH 1.470 03/04/25 06:20: POC Glucose 86 03/04/25 11:25: POC Glucose 154 H Rhythm Strip Rhythm Strip: Sinus Rhythm Rate: 68 Cardiology Labs/Tests 03/03/25 17:17: WBC 8.5, RBC 4.26 L, Hgb 12.5 L, Hct 37.6 L, MCV 88.3, MCH 29.3, MCHC 33.2, Plt Count 233, MPV 9.4, Immature Gran % (Auto) 0.400, Neut % (Auto) 68.9, Lymph % (Auto) 19.5, Harding % (Auto) 9.9, Eos % (Auto) 0.8, Baso % (Auto) 0.5, Absolute Neuts (auto) 5.9, Nucleated RBC % 0, Sodium 141, Potassium 3.8, Chloride 105, Carbon Dioxide 24.4, Anion Gap 11, BUN 24 H, Creatinine 0.90, Est GFR (MDRD) Non-Af 91, BUN/Creatinine Ratio 26.8 H, Glucose 104 H, Calcium 9.1, Magnesium 1.8, Total Bilirubin 1.44 H 03/03/25 17:25: Urine Color Yellow, Urine Clarity Clear, Urine pH 6.0, Ur Specific Plac[place] 1.015, Urine Protein 30 H, Urine Glucose (UA) Normal, Urine Ketones 5 H, Urine Occult Blood Negative, Urine Nitrite Negative, Urine Bilirubin Negative, Urine Urobilinogen 1 H, Ur Leukocyte Esterase Negative, Urine RBC 0 SEEN, Urine WBC 0-5 SEEN 03/04/25 03:50: WBC 7.5, RBC 4.31 L, Hgb 12.5 L, Hct 38.1 L, MCV 88.4, MCH 29.0, MCHC 32.8, Plt Count 223, MPV 9.5, Immature Gran % (Auto) 0.300, Neut % (Auto) 58.6, Lymph % (Auto) 27.6, Harding % (Auto) 11.5 H, Eos % (Auto) 1.3, Baso % (Auto) 0.7, Absolute Neuts (auto) 4.4, Nucleated RBC % 0, Sodium 141, Potassium 3.4, Chloride 104, Carbon Dioxide 25.8, Anion Gap 11, BUN 19, Creatinine 0.82, Est GFR (MDRD) Non-Af 93, BUN/Creatinine Ratio 23.4 H, Glucose 115 H, Calcium 9.2, Total Bilirubin 1.24, Triglycerides 36, Cholesterol 94, VLDL Cholesterol 7, HDL Cholesterol 53, Cholesterol/HDL Ratio 1.78 Rhythm: EKG: ECHO: Stress Test: Cardiac Cath: PCI: CT Surgery: Holter monitor: EPS: PPM: CXR: Chest CT Scan: Radiography Diagnostic Testing: Radiology Impression Chest X-Ray 03/03/25 17:35 IMPRESSION: 1. Moderate left pleural effusion. 2. Cardiomegaly. 3. Nodular opacities in the left perihilar region measuring up to 8 mm, likely calcified nodes or calcified pulmonary granulomas. Recommend attention on upcoming CT. Reading Location: [facility] Abdomen/Pelvis CT 03/03/25 18:07 IMPRESSION: 1. No evidence of bowel obstruction. 2. Cardiomegaly with moderate left and trace right pleural effusions, in addition to anasarca, may be the result of fluid overload. 3. Findings suggestive of mild hepatic steatosis. 4. Fat containing left paraumbilical and right inguinal hernias. Reading Location: [facility] Echocardiogram 03/03/25 21:28 Interpretation Summary Moderately dilated left ventricular cavity. Severe generalized LV hypokinesis. Estimated LVEF 20-25%. Stage III diastolic dysfunction. Mild global right ventricular systolic dysfunction. The left atrium is severely enlarged. The right atrium is moderately enlarged. Mild (1+) mitral valve insufficiency. Mild tricuspid valve insufficiency. Right ventricular systolic pressure estimated to be 63 mmHg. Moderately calcified aortic valve. Moderate aortic valve stenosis. Mean peak gradient 33 mmHg. Valve area 1.1 cm??. Mildly dilated aortic root. Organized left pleural effusion. Consider CT chest for further evaluation. Ordering Physician: Jolie Osman Referring Physician: Berry Lind Performed By: Brice Boyce RCS
[2025-03-04 17:18] VITALS: BP 123/92; PULSE 77; RESP 17; TEMP 37.2; O2SAT 97
[2025-03-04] MEDS: Spironolactone 25 MG Tablet PO (17:20)
[2025-03-04] MEDS: Insulin Lispro 100 UNIT/ML INSULN.PEN SC ×2 (18:24→22:11)
[2025-03-04] MEDS: Carvedilol 6.25 MG Tablet PO (18:24)
[2025-03-04 18:32] LABS: Bedside Glucose 227 mg/dL (74-106)
[2025-03-04 22:07] LABS: Bedside Glucose 184 mg/dL (74-106)
[2025-03-04] MEDS: Atorvastatin Calcium 40 MG Tablet PO (22:10)
[2025-03-04] MEDS: Insulin Glargine-YFGN 100 UNIT/ML Pen 45 UNIT SC (22:11)
[2025-03-05 05:31] VITALS: BP 125/98; PULSE 71; RESP 18; TEMP 36.7; O2SAT 95
[2025-03-05 06:00] VITALS: BMI 33.5
[2025-03-05 07:08] LABS: Bedside Glucose 137 mg/dL (74-106)
--- NOTE | 2025-03-05 08:37 | PN.HOSP_ITS ---
Reason for Visit Reason for Visit: Diagnoses Type 2 diabetes mellitus with other skin complications (03/04/25) Essential (primary) hypertension (03/04/25) Nonrheumatic aortic (valve) stenosis (03/04/25) Acute systolic (congestive) heart failure (03/04/25) Heart failure, unspecified (03/04/25) Pleural effusion, not elsewhere classified (03/04/25) Subjective Subjective Feeling well. No new complaints. Objective Data Objective Data Vital Signs: Vital Signs Temp Pulse Resp BP Pulse Ox O2 Del Method 36.7 C 71 18 125/98 H 95 Room Air 03/05/25 05:31 03/05/25 05:31 03/05/25 05:31 03/05/25 05:31 03/05/25 05:31 03/05/25 05:31 Oxygen Delivery Method Room Air Weight: 118.3 kg Body Mass Index (BMI) 33.5 Intake & Output: Intake and Output for Last 24 Hours 03/03/25 03/04/25 03/05/25 23:59 23:59 23:59 Intake Total 300 / 300 Output Total 1250 / 1250 3200 / 3200 Balance -1250 / -1250 -2900 / -2900 Lab / Micro Data 03/04/25 03:50 03/04/25 03:50 Labs: Laboratory Results - last 24 hr 03/04/25 11:25: POC Glucose 154 H 03/04/25 17:14: POC Glucose 227 H 03/04/25 21:44: POC Glucose 184 H 03/05/25 06:42: POC Glucose 137 H Radiography Diagnostic Testing: Radiology Impression Echocardiogram 03/03/25 21:28 Interpretation Summary Moderately dilated left ventricular cavity. Severe generalized LV hypokinesis. Estimated LVEF 20-25%. Stage III diastolic dysfunction. Mild global right ventricular systolic dysfunction. The left atrium is severely enlarged. The right atrium is moderately enlarged. Mild (1+) mitral valve insufficiency. Mild tricuspid valve insufficiency. Right ventricular systolic pressure estimated to be 63 mmHg. Moderately calcified aortic valve. Moderate aortic valve stenosis. Mean peak gradient 33 mmHg. Valve area 1.1 cm??. Mildly dilated aortic root. Organized left pleural effusion. Consider CT chest for further evaluation. Ordering Physician: Jolie Osman Referring Physician: Berry Lind Performed By: Brice Boyce RCS Rhythm Strip Rhythm Strip: Sinus Rhythm Rate: 68 Physical Exam Const alert and no apparent distress Constitutional Narrative: up in chair. ambulates without difficulty. HEENT head/scalp atraumatic and moist oral mucous membranes Resp normal respiratory effort and no retractions Extremity Extremity Narrative: legs wrapped--did not remove. General Extremity: edema Psych affect normal Assessment & Plan Assessment/Plan (1) Congestive heart failure: QUALIFIERS: Heart failure chronicity: acute Heart failure type: s ystolic Qualified Code(s): I50.21 - Acute systolic (congestive) heart failure PLAN: Acute HFrEF. Echo shows an EF of 20-25%, stage III DD, Severely LAE, moderate URSULA, RVSP 63mmHg, Moderate (peak gradient 33mmHg, valve area 1.1 cm2) Started on spironolactone LE Kenyon, plan to watch him 1 more day and if remains stable, should be able to discharge 03/06. Continue carvedilol, lisinopril; cards recommending increase to 12.5 and 20, respectively. (2) Pleural effusion, left: PLAN: Likely transudative given the CHF. Hold off on thoracentesis at this time as he is not significantly symptomatic from it at this time. (3) Aortic stenosis: QUALIFIERS: Cardiac valve disease etiology: nonrheumatic Q ualified Code(s): I35.0 - Nonrheumatic aortic (valve) stenosis PLAN: Moderate Complicate HF with weak LV. May need AVR, defer to referral timing to cardiology PLAN: Plan Chronic conditions: * SSI and glargine * HTN: amlodipine, lisinopril VTE prophylaxis: LMWH. LE Kenyon, if stable, should be ready for discharge 03/06. Charges/Coding Visit Charges Inpatient E&M: 32359 Subs Hosp L2
[2025-03-05 09:24] VITALS: BP 112/85; PULSE 70; RESP 16; TEMP 36.4; O2SAT 97
--- NOTE | 2025-03-05 09:26 | PN.CARD_ITS ---
Subjective Subjective Patient reports when he first woke up this morning he is little bit sore over and tight. However he got up and did his pulmonary and spirometer everything loosened up and he feels much better today. His breathing is much easier his urine output has been significant. Objective Data Vital Signs: Vital Signs Temp Pulse Resp BP Pulse Ox O2 Del Method 98.1 F 71 18 125/98 H 95 Room Air 03/05/25 05:31 03/05/25 05:31 03/05/25 05:31 03/05/25 05:31 03/05/25 05:31 03/05/25 05:31 Oxygen Delivery Method Room Air Weight: 260 lb 12.909 oz Body Mass Index (BMI) 33.5 Intake & Output: Intake and Output for Last 24 Hours 03/03/25 03/04/25 03/05/25 23:59 23:59 23:59 Intake Total 300 / 300 Output Total 1250 / 1250 3200 / 3200 Balance -1250 / -1250 -2900 / -2900 Lab / Micro Data Attestation: I reviewed the patient's lab results. 03/04/25 03:50 03/04/25 03:50 Labs: Laboratory Results - last 24 hr 03/04/25 11:25: POC Glucose 154 H 03/04/25 17:14: POC Glucose 227 H 03/04/25 21:44: POC Glucose 184 H 03/05/25 06:42: POC Glucose 137 H Rhythm Strip Rhythm Strip: Sinus Rhythm Rate: 70 Cardiology Labs/Tests Rhythm: EKG: ECHO: Stress Test: Cardiac Cath: PCI: CT Surgery: Holter monitor: EPS: PPM: CXR: Chest CT Scan: Radiography Diagnostic Testing: Radiology Impression Echocardiogram 03/03/25 21:28 Interpretation Summary Moderately dilated left ventricular cavity. Severe generalized LV hypokinesis. Estimated LVEF 20-25%. Stage III diastolic dysfunction. Mild global right ventricular systolic dysfunction. The left atrium is severely enlarged. The right atrium is moderately enlarged. Mild (1+) mitral valve insufficiency. Mild tricuspid valve insufficiency. Right ventricular systolic pressure estimated to be 63 mmHg. Moderately calcified aortic valve. Moderate aortic valve stenosis. Mean peak gradient 33 mmHg. Valve area 1.1 cm??. Mildly dilated aortic root. Organized left pleural effusion. Consider CT chest for further evaluation. Ordering Physician: Jolie Osman Referring Physician: Berry Lind Performed By: Brice Boyce RCS Physical Exam Narrative Resting comfortably seated in the chair at the bedside. Const alert and oriented x3 HEENT normocephalic Eyes EOMs intact bilaterally Neck no JVD Resp normal respiratory effort and clear to auscultation bilaterally Cardio Rate: regular rate Rhythm: regular rhythm Heart Sounds: S1 normal, S2 normal and murmur systolic II/ harsh left sternal border and LVOT; Negative for click or gallop GI soft to palpation and non-tender Extremity Extremity Narrative: Both are wrapped he reports the edema is markedly improved. Neuro Neuro Narrative: Alert and oriented x 3 Psych mental status grossly normal Assessment & Plan Assessment/Plan (1) Congestive heart failure: QUALIFIERS: Heart failure type: systolic Heart failure chronicity: acute Qualified Code(s): I50.21 - Acute systolic (congestive) heart failure PLAN: Patient is having excellent diuresis. Breathing is markedly improved. He does have severe LV dysfunction EF in the 20-25% range. This is global. The patient remains in sinus rhythm. His renal function remains normal. Blood pressure still allows for titration of medical therapy. Coreg will be increased to 12.5 mg twice daily. If his blood pressure will tolerate in the next 24 hours lisinopril should be increased to 20 mg daily. The patient should follow-up with a nurse practitioner in 7 to 10 days I would not recommend he return to his gainful employment till after he is evaluated in our office in 7 to 10 days. He will see me at 4 to 6 weeks. After that visit we will repeat his echocardiogram pending the titration of his medications to reassess his aortic stenosis and LV function. Further recommendations for long- term management will be dependent upon that reechocardiogram. (2) Aortic stenosis: QUALIFIERS: Cardiac valve disease etiology: nonrheumatic Q ualified Code(s): I35.0 - Nonrheumatic aortic (valve) stenosis PLAN: Patient's mean gradient is 33 in the face of severe LV dysfunction. This most likely is the etiology of his heart failure and represents low output severe aortic stenosis. Once fully titrated on his medical regiment further evaluation through structural heart clinic will be obtained. (3) Hypertension: QUALIFIERS: Hypertension type: essential hypertension Qualified Code(s): I10 - Essential (primary) hypertension PLAN: Patient's blood pressure has been well-controlled we actually have a little room to increase his LV dysfunction recovery medical therapy. Will continue with his current meds as outlined above. PLAN: Plan 1. Increase Coreg to 12.5 mg twice daily. 2. Recommend switching Lasix to 40 mg daily p.o. 3. Titrate lisinopril to 20 mg daily if blood pressure will tolerate in the next 24 hours. 4. From a cardiovascular standpoint the patient should be able to be discharged sometime in the next 24 to 36 hours. 5. Patient should follow-up with the [facility] in 7 to 10 days with our advanced practitioner. He can return to work after evaluated at that office visit most likely. The patient will follow up with Dr. Kenyon in 4 to 6 weeks and at that time we will reassess the titration of his medications and evaluate him for limited echocardiogram to look at the aortic stenosis and LV recovery. 6. Following his follow-up with the [facility] will determine the need for referral for structural heart evaluation. 7. Please call me tomorrow if any questions prior to discharge I will not be rounding but will be available for phone consultation. Charges/Coding Visit Charges Inpatient E&M: 05582 [facility] Hosp L3
[2025-03-05] MEDS: Enoxaparin 40 MG/0.4 ML Syringe SC (09:36)
[2025-03-05] MEDS: Furosemide 40 MG/4 ML Vial IV (09:37)
[2025-03-05] MEDS: Spironolactone 25 MG Tablet PO (09:37)
[2025-03-05] MEDS: Aspirin E.C. 81 MG Tablet PO (09:37)
[2025-03-05] MEDS: Lisinopril 10 MG Tablet PO ×2 (09:38→16:38)
[2025-03-05] MEDS: Carvedilol 6.25 MG Tablet PO (09:50)
--- NOTE | 2025-03-05 11:45 | CASEMGMT ---
RN CM Face to Face with patient for initial transition planning/care coordination assessment. RN CM introduced self and role at [facility]. Patient lying in bed, alert and oriented. Patient willing to participate in assessment and is able to answer all questions appropriately. Care providers, pharmacy, and demographics verified. Strata: 2 PCP: [facility] Specialists: none Preferred Pharmacy: [facility] Insurance: [employer] Prescription Benefit: yes Living Will/HPOA: yes, Svitlana Murillo LNOK: Living Arrangements: Patient lives with in a 2 story home with bed and bath on first floor, 2 steps and railing to enter the home. Patient states she is independent at home. Transportation: self, DME/HHC: Patient has raised toilet, cane, walker, grab bars, and cpap at home. No previous HHC or SNF. Patient wishes to discharge home, denies need for home health at this time. Patient states he has no further needs or concerns at this time. CM to follow for discharge planning needs that may arise. Disposition Plan: Patient to discharge home with family support and follow up plans in place. Melissa SIMPSON, RN, CM
[2025-03-05] MEDS: Insulin Lispro 100 UNIT/ML INSULN.PEN SC ×2 (12:28→21:09)
[2025-03-05 16:30] VITALS: BP 111/81; PULSE 72; RESP 16; TEMP 36.5; O2SAT 98
[2025-03-05] MEDS: Carvedilol 12.5 MG Tablet PO (16:37)
[2025-03-05 17:43] LABS: Bedside Glucose 155 mg/dL (74-106)
[2025-03-05 18:31] LABS: Bedside Glucose 141 mg/dL (74-106)
[2025-03-05 19:15] VITALS: PULSE 69
[2025-03-05] MEDS: Atorvastatin Calcium 40 MG Tablet PO (21:08)
[2025-03-05] MEDS: Insulin Glargine-YFGN 100 UNIT/ML Pen 45 UNIT SC (21:09)
[2025-03-05 21:44] VITALS: BP 107/89; PULSE 67; RESP 16; TEMP 36.7; O2SAT 95
[2025-03-05 22:07] LABS: Bedside Glucose 193 mg/dL (74-106)
[2025-03-06 03:37] VITALS: BMI 34.0
[2025-03-06 06:12] LABS: Bedside Glucose 83 mg/dL (74-106)
[2025-03-06 06:20] LABS: Anion Gap 11 (5-15); BUN 27 mg/dL (4-19); BUN/Creat Ratio 27.2 RATIO (10-20); Carbon Dioxide 27.5 mmol/L (21.0-32.0); Chloride 103 mmol/L (98-108); Creatinine, Serum 0.99 mg/dL (0.70-1.20); EST Glomerular Filtration Rate 81 (>60); Estimated Creatinine Clearance 92.99 ml/min (50-250); Glucose 80 mg/dL (70-99); Potassium 3.5 mmol/L (3.3-5.1); Sodium Level 141 mmol/L (133-145)
[2025-03-06 06:42] VITALS: BP 126/94; PULSE 63; RESP 16; TEMP 36.6; O2SAT 96
[2025-03-06 07:49] VITALS: BMI 33.3
--- NOTE | 2025-03-06 10:20 | DS.PCM_ITS ---
Providers Date of Admission: 03/04/25 Primary Care Physician: Dr. Feliz Landeros, DO Consultations 03/04/25 12:30 Consult: Cardiology Routine Consulting Provider: Rasta Kenyon Reason for Consult: CHF EMERGENT Consult: No MD Notified: Yes Date Notified: 03/04/25 Time Notified: 12:30 Method of Notification: Verbal Reason For Visit: HF EXACERBATION Diagnosis Discharge Diagnosis (1) Congestive heart failure: Status: Acute Code(s): I50.9 - Heart failure, unspecified Qualifiers: Heart failure type: systolic Heart failure chronicity: acute Qualified Code(s): I50.21 - Acute systolic (congestive) heart failure Plan: Acute HFrEF. Echo shows an EF of 20-25%, stage III DD, Severely LAE, moderate URSULA, RVSP 63mmHg, Moderate (peak gradient 33mmHg, valve area 1.1 cm2) Started on spironolactone DW Dr. Kenyon, plan to watch him 1 more day and if remains stable, should be able to discharge 03/06. Continue carvedilol, lisinopril; cards recommending increase to 12.5 and 20, respectively. (2) Pleural effusion, left: Status: Acute Code(s): J90 - Pleural effusion, not elsewhere classified Plan: Likely transudative given the CHF. Hold off on thoracentesis at this time as he is not significantly symptomatic from it at this time. (3) Aortic stenosis: Status: Acute Code(s): I35.0 - Nonrheumatic aortic (valve) stenosis Qualifiers: Cardiac valve disease etiology: nonrheumatic Qualified Code(s): I35.0 - Nonrheumatic aortic (valve) stenosis Plan: Moderate Complicate HF with weak LV. May need AVR, defer to referral timing to cardiology Plan Chronic conditions: * SSI and glargine * HTN: amlodipine, lisinopril DC home. Follow up with cardiology. 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 Instructions: Resume on 03/08/25. vitamin K2 100 mcg capsule 100 mcg PO DAILY 03/03/25 aspirin 81 mg tablet,delayed release 81 mg PO BREAKFAST #0 tabs 03/06/25 carvedilol 12.5 mg tablet 12.5 mg PO BIDCM #60 tabs 03/06/25 furosemide 40 mg tablet 40 mg PO DAILY #30 tabs 03/06/25 lisinopril 20 mg tablet 20 mg PO DAILY #30 tabs 03/06/25 spironolactone 25 mg tablet 25 mg PO DAILY #30 tabs 03/06/25 Hospital Course Operations None Procedures 2-D Echocardiogram Summary of Care Provided Minutes Spent on Discharge: 45 Hospital Course: Patient presents with weight gain, edema and dyspnea. Patient was found to have acute heart failure started on IV furosemide. Echo came back showing an EF of 2025% with moderate aortic stenosis. Cardiology was consulted. Patient was placed on goal-directed therapy and has remained stable during this hospitalization. Patient will follow-up with cardiology in 7 to 10 days and we will determine if he can go back to work and then follow-up in about another 6 weeks for further evaluation. Patient may need eventual referral for and aortic valve replacement. Patient may also likely require cardiac catheterization. Weight / BMI Weight Weight: 117.9 kg Body Mass Index (BMI) 33.3 ABG / Lab / Microbiology Data 03/04/25 03:50 03/06/25 04:26 Laboratory: Laboratory Results - last 24 hr 03/05/25 12:26: POC Glucose 155 H 03/05/25 16:35: POC Glucose 141 H 03/05/25 21:06: POC Glucose 193 H 03/06/25 04:26: Sodium 141, Potassium 3.5, Chloride 103, Carbon Dioxide 27.5, Anion Gap 11, BUN 27 H, Creatinine 0.99, Estim Creat Clear Calc 92.99, Est GFR (MDRD) Non-Af 81, BUN/Creatinine Ratio 27.2 H, Glucose 80, Calcium 9.0 03/06/25 05:53: POC Glucose 83 D/C Instructions Discharge Diet: 2000 Calorie Control Diet and - (1.5 (~50 oz) liters fluid/day. ) DC O2, CPAP, BIPAP Needs Home O2 Discharge instructions: No Meaningful Use Info Meaningful Use Meaningful Use Diagnoses (Choose all that apply): CHF CHF VANDA/ARB ordered at discharge?: Yes Documented LVEF (%): 20 Ischemic Stroke Statin Dosing Therapy Reference: STATIN DOSE THERAPY REFERENCE: * Patients > 75 years receive moderate or high dose statin therapy. * Patients 75 years or YOUNGER should receive HIGH intensity statin dose unless contraindicated. You will be required to document reason for non-treatment if statin daily dose does not meet guidelines. HIGH DOSE STATIN THERAPY DAILY Atorvastatin > than or = to 40 mg Rosuvastatin > than or = to 20 mg Amlodipine + Atorvastatin > than or = to 2.5/40 mg Ezetimibe + Simvastatin 10/80 mg Simvastatin 80mg Discharge Plan Admission Admit Date/Time: 03/04/25 13:55 Primary Reason for Your Visit: Heart failure Attending Provider: Jayce Carpenter Primary Care Provider: Feliz Landeros Consulting Providers: Jolie Osman; Rasta Kenyon Instructions Patient Instructions: Heart Failure Flare Up Signs, Heart Failure: Tracking Your Weight, Heart Failure Dc, Heart Failure: Travel Concerns, Heart Failure Care, Heart Failure and Physical Activity Discharge Orders/Prescriptions Prescriptions: New furosemide 40 mg Tablet 40 mg PO DAILY Qty: 30 0RF carvedilol 12.5 mg Tablet 12.5 mg PO BIDCM Qty: 60 0RF lisinopril 20 mg Tablet 20 mg PO DAILY Qty: 30 0RF aspirin 81 mg Tablet,Delayed Release (Dr/Ec) 81 mg PO BREAKFAST Qty: 0 0RF spironolactone 25 mg Tablet 25 mg PO DAILY Qty: 30 0RF Continued acetaminophen [Tylenol Extra Strength] 500 mg tablet 500 mg PO Q6H PRN (Reason: pain) zinc 50 mg tablet 50 mg PO DAILY cholecalciferol (vitamin D3) 125 mcg (5,000 unit) capsule 125 mcg PO DAILY ascorbic acid (vitamin C) 1,000 mg tablet 2 g PO Q6H magnesium oxide 400 mg magnesium tablet 250 mg PO DAILY (DME) pen needle, diabetic [Comfort EZ Pen [place]lette] 32 gauge x 3/16 needle See Rx Instructions .Route Qty: 100 2RF Rx Instructions: As directed vitamin K2 100 mcg capsule 100 mcg PO DAILY (DME) FreeStyle Emmanuel 2 Sensor Kit See Rx Instructions .Route Qty: 1 5RF Rx Instructions: As directed (DME) FreeStyle Emmanuel 3 [place] Misc See Rx Instructions .Route Qty: 1 0RF Rx Instructions: As directed atorvastatin 40 mg tablet 40 mg PO DAILY Qty: 90 1RF insulin glargine [Lantus Solostar U-100 Insulin] 100 unit/mL (3 mL) insulin pen 45 unit subcut QPM Qty: 15 3RF Held metformin 500 mg tablet extended release 24 hr 500 mg PO BID Qty: 180 1RF Hold Instructions: Resume on 03/08/25. Discontinued potassium 99 mg tablet 99 mg PO BID Rx Instructions: 99 PO twice a day; hydrochlorothiazide 12.5 mg tablet 12.5 mg PO QAM Qty: 90 2RF amlodipine-benazepril 5-10 mg capsule 1 cap PO QDAY Qty: 90 1RF Referrals / Follow Up: [facility] [Provider Group] - Within 1 Week Feliz Landeros DO [Primary Care Provider] - Within 2 Weeks Disposition Disposition (needs filled in before D/C Order can be placed): Home, Self Care Charges/Coding Visit Charges Inpatient E&M: 59040 Disch Hosp >30min
[2025-03-06 10:31] VITALS: BP 95/78; PULSE 68; RESP 16; TEMP 36.3; O2SAT 95
[2025-03-06] MEDS: Enoxaparin 40 MG/0.4 ML Syringe SC (10:36)
--- NOTE | 2025-03-06 10:48 | CASEMGMT ---
Patient has order for discharge. RN CM in to discuss needs at discharge. Patient denies needs or help at discharge. Patient had no further questions or concerns.
[2025-03-06] MEDS: Spironolactone 25 MG Tablet PO (10:58)
[2025-03-06] MEDS: Aspirin E.C. 81 MG Tablet PO (10:58)
[2025-03-06] MEDS: Furosemide 40 MG Tablet PO (10:58)
[2025-03-06] MEDS: Carvedilol 12.5 MG Tablet PO (12:25)
[2025-03-06] MEDS: Lisinopril 20 MG Tablet PO (12:25)
[2025-03-06] MEDS: Insulin Lispro 100 UNIT/ML INSULN.PEN SC (12:33)
[2025-03-06 12:59] LABS: Bedside Glucose 199 mg/dL (74-106)
== END 2025-03-06 15:27 | disposition home or self-care (01) ==
LOC: ED 20:31 → PCU 21:29
PROVIDERS: Admitting Provider Family Medicine; Emergency Provider Emergency Medicine; PCP Family Medicine; Referring Provider Emergency Medicine
DX: I11.0 Hypertensive heart disease with heart failure (principal); I50.21 Acute systolic (congestive) heart failure; E11.40 Type 2 diabetes mellitus with diabetic neuropathy, unspecified; Z79.4 Long term (current) use of insulin; D64.9 Anemia, unspecified; E66.9 Obesity, unspecified; E78.5 Hyperlipidemia, unspecified; I08.3 Combined rheumatic disorders of mitral, aortic and tricuspid valves; Z86.718 Personal history of other venous thrombosis and embolism; Z79.84 Long term (current) use of oral hypoglycemic drugs; Z68.36 Body mass index [BMI] 36.0-36.9, adult; I44.0 Atrioventricular block, first degree; Z79.899 Other long term (current) drug therapy; I77.819 Aortic ectasia, unspecified site; R94.31 Abnormal electrocardiogram [ECG] [EKG]; I44.7 Left bundle-branch block, unspecified; J91.8 Pleural effusion in other conditions classified elsewhere
CPT/HCPCS: 36415; 71045; 74177; 80048; 80053; 80061; 81001; 82962; 83735; 83880; 84443; 84484; 85025; 93005; 93306; 94668; 96372; 96374; 96376; 97802; 99221; 99284; Q9957; Q9967; A4216; G0378; J1938

== ENCOUNTER → 2025-03-13 | Outpatient (CLI) | payer MEDICARE, SELFPAY ==
[2025-03-13 12:37] LABS: Absolute Lymphocyte Count 1.27 X10^3/uL (0.83-4.51); Basophil# 0.04 X10^3/uL; Basophil% 0.5 % (0-1); Eosinophil# 0.04 X10^3/uL; Eosinophils% 0.5 % (0-5); Hematocrit 42.9 % (40-54); Lymphocyte # 1.27 X10^3/ul (0.83-4.51); Lymphocyte % 15.8 % (19-41); Mean Corp Hgb Conc 32.6 g/dL (32-36); Mean Corpuscular Hgb 29.2 pg (27.0-32.0); Mean Corpuscular Volume 89.6 fL (80-94); Mean Platelet Vol. 10.4 fl (6.2-12.0); Monocyte% 7.5 % (0-10); NRBC Flagged by Analyzer 0 % (0-5); Neutrophil # 6.04 X10^3/uL (2.7-7.7); Neutrophil % 75.3 % (47-70); Platelet Count 265 K/mm3 (150-450); RBC Distribution Width CV 14.8 % (11.6-14.6); RBC Distribution Width SD 48.7 fl (35.1-43.9); Red Blood Count 4.79 M/mm3 (4.6-6.2)
[2025-03-13 13:04] LABS: Anion Gap 10 (5-15); BUN 26 mg/dL (4-19); BUN/Creat Ratio 26.4 RATIO (10-20); Calcium,Total 9.5 mg/dL (7.6-11.0); Carbon Dioxide 26.9 mmol/L (21.0-32.0); Chloride 103 mmol/L (98-108); Creatinine, Serum 0.99 mg/dL (0.70-1.20); EST Glomerular Filtration Rate 81 (>60); Glucose 214 mg/dL (70-99); Sodium Level 140 mmol/L (133-145)
== END | disposition home or self-care (01) ==
LOC: LAB 11:23
PROVIDERS: PCP Family Medicine; Referring Provider Nurse Practitioner Gerontology; Visit Provider Nurse Practitioner Gerontology
DX: I35.0 Nonrheumatic aortic (valve) stenosis (principal)
CPT/HCPCS: 36415; 80048; 85025

== ENCOUNTER 2025-04-07 06:48 | Day surgery (SDC) | payer MEDICARE, SELFPAY ==
[2025-04-03 11:18] VITALS: BMI 33.0
[2025-04-07 08:14] LABS: Base Excess 4 mmol/L (-2 to +2); PO2 70 mmHG (75-100); SITE Not entered; SO2 94 % (95-99)
[2025-04-07 08:35] LABS: SITE Not entered; VBG BASE EXCESS 4 mmol/L (-1.0-3.5); VBG PO2 35 mmHg (25-40); VBG SO2 65 % (50-70); VBG TCO2 30 mmol/L (23-33)
[2025-04-07 08:38] LABS: SITE Not entered; VBG BASE EXCESS 6 mmol/L (-1.0-3.5); VBG PO2 35 mmHg (25-40); VBG SO2 65 % (50-70); VBG TCO2 33 mmol/L (23-33)
== END 2025-04-07 11:20 | disposition home or self-care (01) ==
PROVIDERS: PCP Family Medicine; Referring Provider Internal Medicine Cardiovascular Disease; Visit Provider Internal Medicine Cardiovascular Disease
DX: I35.0 Nonrheumatic aortic (valve) stenosis (principal); I11.0 Hypertensive heart disease with heart failure; I50.21 Acute systolic (congestive) heart failure; Z79.4 Long term (current) use of insulin; E11.9 Type 2 diabetes mellitus without complications; E78.5 Hyperlipidemia, unspecified; E66.9 Obesity, unspecified; Z79.899 Other long term (current) drug therapy; Z79.84 Long term (current) use of oral hypoglycemic drugs; Z86.718 Personal history of other venous thrombosis and embolism; Z79.82 Long term (current) use of aspirin; Z68.33 Body mass index [BMI] 33.0-33.9, adult
CPT/HCPCS: 82803; 93308; 93456; 99152; 99153; C1894; Q9967; C1751; C1769

== ENCOUNTER → 2025-05-22 | Outpatient (CLI) | payer MEDICARE, SELFPAY ==
[2025-05-22 12:58] LABS: Hematocrit 36.3 % (40-54); Hemoglobin 12.5 g/dL (13.0-16.5); Immature Granulocytes Count 0.010 X10^3/uL (0.0-0.0); Mean Corp Hgb Conc 34.4 g/dL (32-36); Mean Corpuscular Volume 88.1 fL (80-94); Mean Platelet Vol. 9.4 fl (6.2-12.0); NRBC Flagged by Analyzer 0 % (0-5); Platelet Count 211 K/mm3 (150-450); RBC Distribution Width CV 14.3 % (11.6-14.6); RBC Distribution Width SD 45.9 fl (35.1-43.9); Red Blood Count 4.12 M/mm3 (4.6-6.2); White Blood Count 8.0 K/mm3 (4.4-11.0)
[2025-05-22 14:03] LABS: AST(SGOT) 22 U/L (<=37); Alanine Aminotransfer ALT/SGPT 23 U/L (<=46); Albumin, Serum 3.9 g/dL (3.4-4.8); Alkaline Phosphatase 55 U/L (40-129); Anion Gap 11 (5-15); BUN 24 mg/dL (4-19); BUN/Creat Ratio 26.3 RATIO (10-20); Calcium,Total 9.4 mg/dL (7.6-11.0); Carbon Dioxide 28.2 mmol/L (21.0-32.0); Chloride 103 mmol/L (98-108); Globulin 2.7 g/dL (2.2-4.2); Glucose 204 mg/dL (70-99); Potassium 4.1 mmol/L (3.3-5.1)
== END | disposition home or self-care (01) ==
LOC: LAB 12:24
PROVIDERS: PCP Family Medicine
DX: I35.0 Nonrheumatic aortic (valve) stenosis (principal)
CPT/HCPCS: 36415; 80053; 85025

== ENCOUNTER → 2025-07-23 | Outpatient (CLI) | payer MEDICARE, SELFPAY ==
--- NOTE | 2025-07-23 13:55 | PCM.CR.HP2 ---
CR - History & Physical General Arrival date:: 07/23/25 Arrival time:: 13:55 Date of Referral:: 07/14/25 Date of CR Evaluation:: 07/23/25 Referring Physician: Dr. 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 #1 ea 05/21/24 (FreeStyle Emmanuel 3 [place]) flash glucose sensor (FreeStyle #1 ea 05/21/24 Emmanuel 2 Sensor kit) ascorbic acid (vitamin C) 1,000 mg 2 g PO Q6H vitamin 07/03/24 tablet vitamin K2 100 mcg capsule 100 mcg PO DAILY vitamin 03/03/25 pen needle, diabetic 32 gauge x #100 ea 03/07/2512/15" (Comfort EZ Pen [place]) aspirin 81 mg tablet,delayed 81 mg PO QDAY #30 tabs 03/13/25 release (Adult Aspirin Regimen) atorvastatin 40 mg tablet 40 mg PO DAILY cholesterol #90 tabs 03/13/25 carvedilol 12.5 mg tablet 12.5 mg PO BIDCM #60 tabs 03/13/25 furosemide 40 mg tablet 40 mg PO DAILY #30 tabs 03/13/25 spironolactone 25 mg tablet 25 mg PO DAILY #30 tabs 03/13/25 turmeric root extract 500 mg 500 mg PO QDAY 03/13/25 capsule insulin glargine 100 unit/mL (3 20 unit (0.2 mL) subcut QPM 03/19/25 mL) subcutaneous pen (Lantus diabetes #15 mL Solostar U-100 Insulin) metformin 500 mg tablet,extended 500 mg PO BID diabetes #180 tabs 05/19/25 release 24 hr lisinopril 40 mg tablet 40 mg PO QDAY 06/18/25 semaglutide 0.25 mg or 0.5 mg (2 0.5 mg (0.736 mL) subcut QWEEK #3 06/18/25 mg/3 mL) subcutaneous pen injector mL (Ozempic) Allergies Allergies Penicillins Allergy (Severe, Verified 03/19/25 16:39) unknown Sleep Disorder Evaluation Hx of Sleep Apnea: Yes Do you snore loudly (louder than talking or can be heard through closed doors)?: No Do you often feel tired/ fatigued/ sleepy during daytime?: No Has anyone observed you stop breathing during sleep?: No History of Hypertension (for STOP score): Yes STOP Results: Negative Advanced Directives Advanced Directives Do you have a Healthcare Power of State Pilot?: Yes Living Will: Yes Advance Directives Information Provided: Yes Advance Directives on File: Yes DNR Order?:: No Past Medical History Covid-19 Screening Physicial Symptoms Other Clinical Concerns Exposure Risk Pertinent Comorbidities 65 years or older:: Yes Has a serious heart condition:: Yes Diabetic:: Yes Past Medical Illness Past Medical History (Updated 06/19/25 @ 08:[address] Feliz Landeros, DO) Aortic stenosis I35.0 Congestive heart failure I50.9 Type 2 diabetes mellitus E11.9 Erectile dysfunction N52.9 Cardiac LV ejection fraction 10-20% R93.1 Deep vein thrombosis (DVT) I82.409 Hyperlipidemia E78.5 Actinic keratosis L57.0 Seborrheic keratosis L82.1 Skin cancer C44.90 Murmur, cardiac R01.1 Chronic sciatica M54.30 Hypertension I10 Past Surgical History Past Surgical History (Updated 07/14/25 @ 15:17 by Noelle Jimenez) History of aortic valve replacement (06/09/25) Z95.2 06/09/25 [facility] H/O cataract removal with insertion of prosthetic lens Z98.49, Z96.1 history of torn upper quad History of hernia repair Z98.890, Z87.19 Family History Summary Family History Father Glaucoma Hypertension Heart disease Cancer prostate Mother Hypertension Colon cancer Grandfather CVA (cerebral vascular accident) Social History Smoking History Smoking Status: Never smoker Alcohol Use Alcohol Usage: No Occupation Occupation (List type of work in comments):: Employed Social Environment Status Marital Status: Current Living Arrangements Living Environment:: Spouse Children How many children do you have?: 2 Do any of your children live nearby?: Yes Safety Do you feel safe in your surroundings?: Yes Assistance Do you need any assistance at home?: no Review of Systems Review of Systems Hints Review of Present Symptoms: Reports Shortness of Breath with Exertion, Fatigue, Appetite - Normal, Appetite - Special Diet and Sleep - Normal; Denies Shortness of Breath at Rest, PVD, Operative Discomfort, Angina, Wound Healing, Dizziness/Lightheadedness, Heart Arrhythmia/Irregularities or Sexual Changes Pain Is Patient Pain Free?: No Pain Location: back Pain Level: 04/10 Risk Factor Assessment Chief Complaint Chief Complaint: Heart Valve Replacement Vital Signs Pulse Ox: 96 Blood Pressure: 122/76 Pulse Pulse Rate: 75 Hypertension Blood Pressure Sitting - Right Arm: 122/76 Diabetes Diabetic History: Type II Obesity Height: 6 ft 2 in Weight:: 257 lb Weight in Pounds: 257.0 lbs Body Mass Index (BMI): 33.0 Physical Inactivity Physical Inactivity: Reg Exercise 30 min/day, Physically demanding job and Recreational activity Risk Stratification Risk Guidelines: Moderate Risk: Risk Factor for Smoking, Risk Factor for Sedentary Lifestyle and Risk Factor for Depression and Highest Risk: Risk Factor for Dyslipidemia, Risk Factor for Diabetes, Risk Factor for Obesity and Risk Factor for Hypertension For Smoking Smoking Risk Guidelines For Dyslipidemia Dyslipidemia Risk Guidelines For Diabetes Mellitus Diabetes Risk Guidelines For Obesity/Overweight Obesity/Overweight Risk Guidelines For Hypertension Hypertension Risk Guidelines For Sedentary Lifestyle Sedentary Lifestyle Risk Guidelines For Depression Depression Risk Guidelines Family History Family History Father Glaucoma Hypertension Heart disease Cancer Mother Hypertension Colon cancer Grandfather CVA (cerebral vascular accident) Motivation Motivation to Participate What do you see as barriers to successfully being able to complete the program?: nothing What do you see as the benefits of succesfully completing the program? In other words, what do you hope to get out of participating in the program?: more energy Are there issues you are dealing with that will interfere with completing the program?: no Do you have a spouse or signficant other, family or friends who will help support you to complete the program?: yes
--- NOTE | 2025-07-23 14:01 | CR.ITP_ITS ---
Diagnosis General Information Admitting Diagnosis: Heart Valve Replacement Personal Learning Style:: Audio/Visual Barriers to Learning: No Barriers Stage of change r/t lifestyle modifications:: Contemplation Gave educational material for:: Treating Heart Disease, How The Heart Works, What it means to have Heart Disease, How Coronary Artery Disease is Diagnosed, Heart Procedures, What Heart Medications Do, Risk Factors & Modifications, Living an Active Life, Nutrition, Emotions & Heart Disease, Stress Management & Relaxation and Sleep Disorders & Heart Disease Education/Goals Cardiac Rehabilitation Goals Personal Goals: Initial Assessment: Improve energy level, Participate in home exercise program, Improve muscle strength and endurance, Improve diet and eating habits (eat healthier) and Control risk factors (learn risk factor modification) Scale for measuring improvement of personal goals Diagnosis & Disease Process Outcomes/Goals: Pt IDs own risk factors & lifestyle modifications by Session 10, Verbalizes symptoms of angina & response by session 3., Pt independently manages and Other Additional Outcomes/Goals: Plan/Interventions: Assist Pt to ID & engage in lifestyle modification to reduce CVD risk, Instruct on individual risk factors, Review symptoms of angina & emergency actions, Review secondary diagnosis & identify educational needs. and Other see comment 30 day Reassessments:: Not Met 30 day Reassessments:: Not Met 30 day Reassessments:: Not Met 30 day Reassessments:: Not Met Final Reassessments:: Not Met Safety Referral to Physical Therapy: No Referral to [facility] Case Management: No Fall Risk Assessed:: Yes Assistive Devices:: Cane Exercise - Initial Assessment Visit Date of Eval: 07/23/25 (initial eval) Mets: Pre-: >3 METS for 30 minutes by discharge, >5 METS for 30 minutes by discharge, >7 METS for 30 minutes by discharge and Unable to meet goal due to: (see comment below) Physician Prescribed Exercise Modalities: Treadmill, Schwinn Airdyne AD-7, SciFit Stepper, WeeleFit Pro-II Ergometer and SciFit Lateral [employer] Frequency: 3x/week for 12 weeks [36 sessions] Intensity: 60-80% of age predicted maximum heart rate reserve Duration: 30 - 45 minutes Current METSs:: 3 Target Heart Rate:: 88-110 Resting Blood Pressure: 122/76 EKG Type: SRm w/1st degree AV block, frequent ectopic vent beats Outcomes & Goals Goals:: Verbalizes understanding of THR, RPE & goal METS by session 6, Documents in home exercise log/reports 30 min aerobic 5 day/wk by DC, Demonstrates accurate pulse taking by DC and Other additional outcome/goals: see below Intervention & Plan Exercise Program Goals: Instruct on personal THR & RPE, Instruct on MET level & personal MET goal, Show patient to take own pulse /validate performance until accurate, Instruct on home exercise and Other additional plan/int Physical Activity Home Exercise Physical Activity - Home Exercise: Safe Exercise, Warm-up, Self-monitoring, Cool-Down, Home Exercise > 30 min Daily and Sitting Time <3 hours/daily Outcomes & Goals Outcomes/Goals: Demonstrates correct Warm-up/exercise Cool-Down (S3) if = 2.5 METs, Verbalizes symptoms of exercise intolerance by Session 3 (S3), Demonstrate safe equipment use (S3) & follows exercise prescrition (6) and Other: See below Intervention & Plan Plan/Intervention: Instruct warm-up & cool-down if exercising at > 2 METs, Instruct on symptoms of exercise intolerance & actions to take, Instruct & monitor on saf, Assess intial functional capacity & safety risk and Other See below Nutrition - Initial Assessment Program Goals Nutrition Program Goals Patient has diagnosis of Hyperlipidemia (ICD E78)?: Yes Visit Date of Eval: 07/23/25 (initial eval. Nutrition survey score of 4) Cholesterol/Lipids (Other Core Measures) Determine presence & major risk factors that modify LDL goal: Cigarette smoking, Hypertension or hypertensive medication, Low HDL cholesterol <40 mg/dL*, Family history of premature CHD in Male < 55 years: female <65 yearsFa and Age men > 45 years; women >/= 55 years Outcomes/Goals: Pt IDs own risk factors & lifestyle modifications by Session 10, Verbalizes symptoms of angina & response by session 3., Pt independently manages and Other Additional Outcomes/Goals: Intervention/Plan: Advocate for lipid panel cholesterol medication if applicable, Instruct on personal lipid levels & lipid goals/NCEP guidelines, Instruct on cholesterol and Other additional plan/int Diabetes (Other Core Measures) Diabetes Type: Diagnosis Type II ICD-10 E11 Insulin dependent injection/pump?: Yes Non-Insulin Dependent?: Yes Do you monitor your blood sugar at home?: Yes Referral to Diabetic Clinic:: No Weight Mgt (Other Care) Height: 6 ft 2 in Weight:: 257 lb BMI: 33.0 Diagnosis Overweight/Obesity BMI> 30% ICD-10 E66: Yes Diagnosis High BMI/Morbid Obesity BMI> 35% ICD-10 Z68: No Outcomes/Goals: Pt sets, maintains & shows weight loss goal & trend during rehab and Other additional outcomes/goals Intervention/Plan: Instruct on ideal BMI & set weight loss goal w/patient, Assist pt to ID & incorporate diet changes for weight loss by S9, Refer to Structured Weight Loss program as appropriate, Encourage goal of using 250- 300dcal per session for weight loss and Other additional plan/interventions Healthy Eating Habits Will attend diet classes:: Yes Outcomes/Goals:: Consume diet rich in vegs,fruits,whole grain/high fiber,fish,lean meat, Limit sat/trans fats,cholesterol & added salts & sugars and Other additional outcome/goals: Intervention/Plan:: Assess current eating habits and Other Additional plan/interventions Education Gave educational materials for:: Signs & symptoms of hypoglycemia, Signs & symptoms of hyperglycemia, Relate diabetes to coronary artery disease and Healthy eating Core - Initial Assessment Visit Date of Eval: 07/23/25 (initial eval) Medication Compliance Preventative Medication(s):: Aspirin, VANDA inhibitor and Statin/lipid H/O mental health issues: depression, anxiety, or addiction?: No Doesn’t believe in the benefits of treatment?: No Believes medications are unnecessary or harmful?: No Has a concern about medication side effects?: No Expresses concern over the cost of medications?: No Outcomes/Goals: Verbalizes medications,desired effect & common side effects @ DC, Pt self-reports following medication regimen, Keeps card in wallet w/medications listed by DC and Other additional outcome/goals: Interventions/plans: Instruct on medication effects & side effects, Review medication list w/patient every two weeks, Instruct importance of taking meds as ordered & assist problem solving and Other additional Tobacco Use Tobacco Use: Non-smoker Hypertension Hypertension Diagnosis:: Hypertension ICD-10 I10 Resting Blood Pressure:: 122/76 [place] [employer] Hypertension Guidelines Outcomes/Goals: Able to verbalize/achieve optimal blood pressure <130/80, Incorporates diet changes & exercise for blood pressure control by DC and Other additional outcomes/goals Interventions/plan: Instruct on optimal blood pressure, hypertension & medications, Instruct on effects of sodium, alcohol, stress, exercise &hypertension and Other additional plan/interventions Tobacco Cessation Referral Smoking Cessation Referral:: No Individual Education/Counseling:: No Education Schedule Given:: Yes Psychosocial - Initial Assess VIsit Date of Eval: 07/23/25 (initial eval) History of previous Mental disease:: No Psychosocial Test Tool Used:: Ferrans Power QOL Cardiac and PHQ-9 Questionnaire phq-9 Severity See PHQ-9 Score: 4 Referral to Behavioral Health PS - Interventions: Yes: Attend Stress Management Classes Outcomes/Goals: See list Psychosocial Outcomes/Goals:: ID's personal stressors & 2 strategies to manage stress by discharge and Other Additional outcome/goals: Intervention/Plan: See List Interventions/Plan:: Assess stressors,coping strategies & signs of derpression on admission, Instruct/assist pt to develop coping & personal stress Mgt strategies, Refer to Behavioral Health if appropriate, Refer to Physician if appropriate, Instruct patient to recognize signs & symptoms of depression, Instruct patient to recog and Other additional plan/intervention Patient Health Questionnaire PHQ-9 Screening Initial Assessment: 1. Little interest or pleasure in doing things: More than half the days 2. Feeling down, depressed, or hopeless: Not at all 3. Trouble falling or staying asleep, or sleeping too much: Not at all 4. Feeling tired or having little energy: More than half the days 5. Poor appetite or overeating: Not at all 6. Feeling bad about yourself -- or that you are a failure or have let yourself or your family down: Not at all 7. Trouble concentrating on things, such as reading the newspaper or watching television: Not at all 8. Moving or speaking so slowly that other people could have noticed. Or the opposite - being so fidgety or restless that you have been moving around a lot more than usual: Not at all 9. Thoughts that you would be better off , or of hurting yourself in some way: Not at all How difficult have these problems made it for you to do your work, take care of things at home, or get along with other people?: Somewhat difficult Total Score: 4 Nutrition Survey Nutrition Survey Initial: Have you lost >10 lbs over the past 2 months without trying?: Yes Are you following a special diet at home for diabetes, low fat, or low salt?: Yes Are you interested in meeting with a dietitian for help understanding your diet?: No Do you eat less than 3 meals a day?: No Do you eat fatty meats (cerna, sausage, ribs, etc), fried foods, desserts, large amounts of salad dressings, margarine, butter, or cheese most days?: No Do you have food allergies? [Enter types in comment field]: No Do you eat in restaurants more than 3 times a week?: Yes Do you season food with salt, seasoning salt, or garlic salt?: No Do you used canned, boxed, frozen meals, or soups, seasoning packets?: Yes Total Score:: 4 Exercise - 30-day Assessment Physician Prescribed Exercise Modalities: Treadmill, Schwinn Airdyne AD-7, SciFit Stepper, SciFit Pro-II Ergometer and SciFit Lateral [place] Exercise - 60-day Assessment Physician Prescribed Exercise Modalities: Treadmill, Schwinn Airdyne AD-7, SciFit Stepper, SciFit Pro-II Ergometer and SciFit Lateral [place] Exercise - 90-day Assessment Physician Prescribed Exercise Modalities: Treadmill, Schwinn Airdyne AD-7, SciFit Stepper, SciFit Pro-II E rgometer and SciFit Lateral [place] Exercise - Final/Discharge Physician Prescribed Exercise Modalities: Treadmill, Schwinn Airdyne AD-7, SciFit Stepper, SciFit Pro-II Ergometer and SciFit Lateral [employer] Frequency: 3x/week for 12 weeks [36 sessions] Intensity: 60-80% of age predicted maximum heart rate reserve Current METSs:: 3 Target Heart Rate:: 88-110 Nutrition - 30-Day Assessment Weight Mgt (Other Care) Height: 6 ft 2 in Weight:: 257 lb BMI: 33.0 Nutrition - 60-Day Assessment Weight Mgt (Other Care) Height: 6 ft 2 in Weight:: 257 lb BMI: 33.0 Core - Final Assessment Hypertension Resting Blood Pressure:: 122/76 [place] [employer] Hypertension Guidelines Core - 60-Day Assessment Hypertension Resting Blood Pressure:: 122/76 [place] [employer] Hypertension Guidelines Psychosocial - 30-Day Assess Referral to Behavioral Health PS - Interventions: Yes: Attend Stress Management Classes Psychosocial - 60-Day Assess Referral to Behavioral Health PS - Interventions: Yes: Attend Stress Management Classes Psychosocial - 90-Day Assess Referral to Behavioral Health PS - Interventions: Yes: Attend Stress Management Classes Psychosocial - Final Assessmen Psychosocial Test phq-9 Severity See PHQ-9 Score: 4 Referral to Behavioral Health PS - Interventions: Yes: Attend Stress Management Classes Nutrition - 90-Day Assessment Weight Mgt (Other Care) Height: 6 ft 2 in Weight:: 257 lb BMI: 33.0 Nutrition - Final Assessment Program Goals Patient has diagnosis of Hyperlipidemia (ICD E78)?: Yes Weight Mgt (Other Care) Height: 6 ft 2 in Weight:: 257 lb BMI: 33.0
[2025-07-23 14:21] VITALS: BP 122/76; PULSE 75; O2SAT 96
[2025-07-23 14:58] VITALS: BMI 33.0
[2025-07-23 15:03] VITALS: BP 122/76; BMI 33.0
== END | disposition home or self-care (01) ==
LOC: CR 13:43
PROVIDERS: PCP Family Medicine; Referring Provider Internal Medicine Cardiovascular Disease; Visit Provider Internal Medicine Cardiovascular Disease
DX: Z00.00 Encounter for general adult medical examination without abnormal findings (principal)

== ENCOUNTER 2025-08-01 15:15 | Outpatient (RCR) | payer MEDICARE, SELFPAY ==
[2025-07-23 15:03] VITALS: BMI 33.0
== END 2025-08-01 23:59 ==
LOC: CR 15:15
PROVIDERS: PCP Family Medicine; Referring Provider Internal Medicine Cardiovascular Disease; Visit Provider Internal Medicine Cardiovascular Disease
DX: Z95.2 Presence of prosthetic heart valve (principal); I50.21 Acute systolic (congestive) heart failure; R93.1 Abnormal findings on diagnostic imaging of heart and coronary circulation
CPT/HCPCS: 93798

== ENCOUNTER 2025-08-27 15:15 | Outpatient (RCR) | payer MEDICARE, SELFPAY ==
[2025-07-23 15:03] VITALS: BMI 33.0
--- NOTE | 2025-08-20 10:28 | PCM.CR.ITP ---
Exercise - Initial Assessment Visit Session #:: 9 Physician Prescribed Exercise Modalities: SciFit Stepper, SciFit Pro-II Ergometer and SciFit Lateral [employer] Operator Nutrition - Initial Assessment Weight Mgt (Other Care) Height: 6 ft 2 in Weight:: 248 lb BMI: 31.8 Psychosocial - Initial Assess Referral to Behavioral Health PS - Interventions: Yes: Attend Stress Management Classes Exercise - 30-day Assessment Visit Date of Eval: 08/20/25 Session #:: 9 Physician Prescribed Exercise Modalities: SciFit Stepper, SciFit Pro-II Ergometer and SciFit Lateral [place] Frequency: 3x/week for 12 weeks [36 sessions] Intensity: 60-80% of age predicted maximum heart rate reserve Duration: 30 - 45 minutes Current METSs:: 3 Target Heart Rate:: 88-110 Current RPE:: 11 Maximum Excercise HR:: 95 Resting Blood Pressure: 140/72 Maximum Exercise Blood Pressure: 168/90 EKG Type: NSR-ST w/1st degree block/peaked Twave. occas to justin Decker Outcomes & Goals Goals:: Verbalizes understanding of THR, RPE & goal METS by session 6, Documents in home exercise log/reports 30 min aerobic 5 day/wk by DC, Demonstrates accurate pulse taking by DC and Other additional outcome/goals: see below Intervention & Plan Exercise Program Goals: Instruct on personal THR & RPE, Instruct on MET level & personal MET goal, Show patient to take own pulse /validate performance until accurate, Instruct on home exercise and Other additional plan/int Physical Activity Home Exercise Physical Activity - Home Exercise: Safe Exercise, Warm-up, Self-monitoring, Cool-Down, Home Exercise > 30 min Daily and Sitting Time <3 hours/daily Outcomes & Goals Outcomes/Goals: Demonstrates correct Warm-up/exercise Cool-Down (S3) if = 2.5 METs, Verbalizes symptoms of exercise intolerance by Session 3 (S3), Demonstrate safe equipment use (S3) & follows exercise prescrition (6) and Other: See below Intervention & Plan Plan/Intervention: Instruct warm-up & cool-down if exercising at > 2 METs, Instruct on symptoms of exercise intolerance & actions to take, Instruct & monitor on saf, Assess intial functional capacity & safety risk and Other See below 30-day Reassessments 30 day Reassessments:: Progressing Reassessment Notes & Comments:: Pt oriented to equipment. RPE explained to pt. Pt demonstrates understanding in his daily sessions. Exercise - 60-day Assessment Physician Prescribed Exercise Modalities: SciFit Stepper, SciFit Pro-II Ergometer and SciFit Lateral [place] Exercise - 90-day Assessment Physician Prescribed Exercise Modalities: SciFit Stepper, SciFit Pro-II Ergometer and SciFit Lateral [place] Exercise - Final/Discharge Physician Prescribed Exercise Modalities: SciFit Stepper, SciFit Pro-II Ergometer and SciFit Lateral [place] Nutrition - 30-Day Assessment Program Goals Nutrition Program Goals Patient has diagnosis of Hyperlipidemia (ICD E78)?: Yes Visit Date of Eval: 08/20/25 Session #:: 9 (Nutrition survey score of 4.) Cholesterol/Lipids (Other Core Measures) Determine presence & major risk factors that modify LDL goal: Cigarette smoking, Hypertension or hypertensive medication, Low HDL cholesterol <40 mg/dL*, Family history of premature CHD in Male < 55 years: female <65 yearsFa and Age men > 45 years; women >/= 55 years Outcomes/Goals: Pt IDs own risk factors & lifestyle modifications by Session 10, Verbalizes symptoms of angina & response by session 3., Pt independently manages and Other Additional Outcomes/Goals: Intervention/Plan: Advocate for lipid panel cholesterol medication if applicable, Instruct on personal lipid levels & lipid goals/NCEP guidelines, Instruct on cholesterol and Other additional plan/int Diabetes (Other Core Measures) Diabetes Type: Diagnosis Type II ICD-10 E11 Insulin dependent injection/pump?: Yes Non-Insulin Dependent?: Yes Do you monitor your blood sugar at home?: Yes Referral to Diabetic Clinic:: No Reassessment Notes & Comments:: Pt encouraged to monitor her BS at home as instructed by her physician. Weight Mgt (Other Care) Height: 6 ft 2 in Weight:: 248 lb BMI: 31.8 Diagnosis Overweight/Obesity BMI> 30% ICD-10 E66: Yes Diagnosis High BMI/Morbid Obesity BMI> 35% ICD-10 Z68: No Outcomes/Goals: Pt sets, maintains & shows weight loss goal & trend during rehab and Other additional outcomes/goals Intervention/Plan: Instruct on ideal BMI & set weight loss goal w/patient, Assist pt to ID & incorporate diet changes for weight loss by S9, Refer to Structured Weight Loss program as appropriate, Encourage goal of using 250-300dcal per session for weight loss and Other additional plan/interventions 30 day Reassessments:: Progressing Reassessment Notes & Comments:: Pt is scheduled to attend nutrition classes. Low sodium heart healthy diet encouraged. Healthy Eating Habits Will attend diet classes:: Yes Outcomes/Goals:: Consume diet rich in vegs,fruits,whole grain/high fiber,fish,lean meat, Limit sat/trans fats,cholesterol & added salts & sugars and Other additional outcome/goals: Intervention/Plan:: Assess current eating habits and Other Additional plan/interventions 30-day Reassessments:: Progressing Reassessment Notes & Comments:: Pt is scheduled to attend nutrition classes this week. Low sodium heart healthy diet encouraged. Education Gave educational materials for:: Signs & symptoms of hypoglycemia, Signs & symptoms of hyperglycemia, Relate diabetes to coronary artery disease and Healthy eating Nutrition - 60-Day Assessment Weight Mgt (Other Care) Height: 6 ft 2 in Weight:: 248 lb BMI: 31.8 Core - 30-Day Assessment Visit Date of Eval: 08/20/25 Session #:: 9 Medication Compliance Preventative Medication(s):: Aspirin, VANDA inhibitor and Statin/lipid H/O mental health issues: depression, anxiety, or addiction?: No Doesn’t believe in the benefits of treatment?: No Believes medications are unnecessary or harmful?: No Has a concern about medication side effects?: No Expresses concern over the cost of medications?: No Outcomes/Goals: Verbalizes medications,desired effect & common side effects @ DC, Pt self-reports following medication regimen, Keeps card in wallet w/medications listed by DC and Other additional outcome/goals: Interventions/plans: Instruct on medication effects & side effects, Review medication list w/patient every two weeks, Instruct importance of taking meds as ordered & assist problem solving and Other additional Tobacco Use Tobacco Use: Non-smoker Hypertension Resting Blood Pressure:: 140/72 [place] [employer] Hypertension Guidelines Peak Exercise Blood Pressure:: 168/90 Outcomes/Goals: Able to verbalize/achieve optimal blood pressure <130/80, Incorporates diet changes & exercise for blood pressure control by DC and Other additional outcomes/goals Interventions/plan: Instruct on optimal blood pressure, hypertension & medications, Instruct on effects of sodium, alcohol, stress, exercise &hypertension and Other additional plan/interventions 30 day Reassessments:: Progressing Reassessment Notes & Comments:: Pt's BP's are elevated on most days. Weight loss and a low sodium diet encouraged. Will continue to monitor and report to pt's physician if necessary. Tobacco Cessation Referral Smoking Cessation Referral:: No Individual Education/Counseling:: No Education Schedule Given:: Yes Psychosocial - 30-Day Assess VIsit Date of Eval: 08/20/25 Session #:: 9 History of previous Mental disease:: No Psychosocial Test Tool Used:: Ferrans Power QOL Cardiac and PHQ-9 Questionnaire phq-9 Severity See PHQ-9 Score: 4 Referral to Behavioral Health PS - Interventions: Yes: Attend Stress Management Classes Outcomes/Goals: See list Psychosocial Outcomes/Goals:: ID's personal stressors & 2 strategies to manage stress by discharge and Other Additional outcome/goals: Intervention/Plan: See List Interventions/Plan:: Assess stressors,coping strategies & signs of derpression on admission, Instruct/assist pt to develop coping & personal stress Mgt strategies, Refer to Behavioral Health if appropriate, Refer to Physician if appropriate, Instruct patient to recognize signs & symptoms of depression, Instruct patient to recog and Other additional plan/intervention 30-day Reassessments: 30 day Reassessments:: Progressing Reassessment Notes & Comments:: Pt denies any psychosocial issues at this time. Pt to attend stress management class. Will reassess every 30 days. Psychosocial - 60-Day Assess Referral to Behavioral Health PS - Interventions: Yes: Attend Stress Management Classes Outcomes/Goals: See list Psychosocial Outcomes/Goals:: ID's personal stressors & 2 strategies to manage stress by discharge and Other Additional outcome/goals: Psychosocial - 90-Day Assess Referral to Behavioral Health PS - Interventions: Yes: Attend Stress Management Classes Psychosocial - Final Assessmen Referral to Behavioral Health PS - Interventions: Yes: Attend Stress Management Classes Nutrition - 90-Day Assessment Weight Mgt (Other Care) Height: 6 ft 2 in Weight:: 248 lb BMI: 31.8 Nutrition - Final Assessment Weight Mgt (Other Care) Height: 6 ft 2 in Weight:: 248 lb BMI: 31.8
[2025-08-20 10:40] VITALS: BP 140/72; BMI 31.8
== END 2025-08-31 23:59 ==
LOC: CR 15:15
PROVIDERS: PCP Family Medicine; Referring Provider Internal Medicine Cardiovascular Disease; Visit Provider Internal Medicine Cardiovascular Disease
DX: Z95.2 Presence of prosthetic heart valve (principal); I50.21 Acute systolic (congestive) heart failure; R93.1 Abnormal findings on diagnostic imaging of heart and coronary circulation
CPT/HCPCS: 93798

== ENCOUNTER → 2025-09-19 | Outpatient (CLI) | payer MEDICARE, SELFPAY ==
[2025-09-17 10:22] VITALS: BMI 31.1
[2025-09-19 16:48] LABS: Hematocrit 36.1 % (40-54); Hemoglobin 12.0 g/dL (13.0-16.5); Mean Corp Hgb Conc 33.2 g/dL (32-36); Mean Corpuscular Volume 92.3 fL (80-94); Mean Platelet Vol. 9.4 fl (6.2-12.0); Platelet Count 198 K/mm3 (150-450); RBC Distribution Width CV 12.4 % (11.6-14.6); RBC Distribution Width SD 41.6 fl (35.1-43.9); Red Blood Count 3.91 M/mm3 (4.6-6.2); White Blood Count 9.2 K/mm3 (4.4-11.0)
[2025-09-19 17:24] LABS: AST(SGOT) 18 U/L (<=37); Alanine Aminotransfer ALT/SGPT 18 U/L (<=46); Albumin, Serum 4.3 g/dL (3.4-4.8); Alkaline Phosphatase 48 U/L (40-129); Anion Gap 9 (5-15); BUN 36 mg/dL (4-19); BUN/Creat Ratio 34.7 RATIO (10-20); Calcium,Total 9.7 mg/dL (7.6-11.0); Carbon Dioxide 30.3 mmol/L (21.0-32.0); Chloride 105 mmol/L (98-108); Globulin 2.8 g/dL (2.2-4.2); Glucose 126 mg/dL (70-99); Potassium 4.4 mmol/L (3.3-5.1)
== END | disposition home or self-care (01) ==
LOC: LAB 15:44
PROVIDERS: PCP Family Medicine; Referring Provider Internal Medicine Cardiovascular Disease; Visit Provider Internal Medicine Cardiovascular Disease
DX: I50.21 Acute systolic (congestive) heart failure (principal)
CPT/HCPCS: 36415; 80053; 85027

== ENCOUNTER 2025-10-01 15:15 | Outpatient (RCR) | payer MEDICARE, SELFPAY ==
[2025-08-20 10:40] VITALS: BMI 31.8
--- NOTE | 2025-09-17 10:10 | PCM.CR.ITP ---
Exercise - Initial Assessment Physician Prescribed Exercise Modalities: [employer] Airdyne AD-7, SciFit Pro-II Ergometer and SciFit Lateral Refugio Nutrition - Initial Assessment Weight Mgt (Other Care) Height: 6 ft 2 in Weight:: 243 lb BMI: 31.1 Core - Initial Assessment Hypertension Resting Blood Pressure:: 132/64 [place] [employer] Hypertension Guidelines Psychosocial - Initial Assess Referral to Behavioral Health PS - Interventions: Yes: Attend Stress Management Classes Exercise - 30-day Assessment Physician Prescribed Exercise Modalities: [employer] Airdyne AD-7, SciFit Pro-II Ergometer and SciFit 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 Exercise - 60-day Assessment Visit Date of Eval: 09/17/25 Session #:: 16 Physician Prescribed Exercise Modalities: Schwinn Airdyne AD-7, SciFit Pro-II Ergometer and SciFit Lateral Refugio Frequency: 3x/week for 12 weeks [36 sessions] Intensity: 60-80% of age predicted maximum heart rate reserve Duration: 30 - 45 minutes Current METSs:: 4 Target Heart Rate:: 88-110 Current RPE:: 11-12 Maximum Excercise HR:: 98 Resting Blood Pressure: 124/84 Maximum Exercise Blood Pressure: 166/84 EKG Type: NSR-ST w/1st degree block/peaked T-wave w/ frequent PVC's, bigeminy Outcomes & Goals Goals:: Verbalizes understanding of THR, RPE & goal METS by session 6, Documents in home exercise log/reports 30 min aerobic 5 day/wk by DC, Demonstrates accurate pulse taking by DC and Other additional outcome/goals: see below Intervention & Plan Exercise Program Goals: Instruct on personal THR & RPE, Instruct on MET level & personal MET goal, Show patient to take own pulse /validate performance until accurate, Instruct on home exercise and Other additional plan/int Physical Activity Home Exercise Physical Activity - Home Exercise: Safe Exercise, Warm-up, Self-monitoring, Cool-Down, Home Exercise > 30 min Daily and Sitting Time <3 hours/daily Outcomes & Goals Outcomes/Goals: Demonstrates correct Warm-up/exercise Cool-Down (S3) if = 2.5 METs, Verbalizes symptoms of exercise intolerance by Session 3 (S3), Demonstrate safe equipment use (S3) & follows exercise prescrition (6) and Other: See below Intervention & Plan Plan/Intervention: Instruct warm-up & cool-down if exercising at > 2 METs, Instruct on symptoms of exercise intolerance & actions to take, Instruct & monitor on saf, Assess intial functional capacity & safety risk and Other See below 30-day Reassessments 30 day Reassessments:: Progressing Reassessment Notes & Comments:: Proper warm up and cool down demonstrated and explained to pt. Pt is able to return demonstration in their daily sessions. Exercise - 90-day Assessment Physician Prescribed Exercise Modalities: Schwinn Airdyne AD-7, SciFit Pro-II Ergometer and SciFit 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 Exercise - Final/Discharge Physician Prescribed Exercise Modalities: Schwinn Airdyne AD-7, SciFit Pro-II Ergometer and SciFit 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 Nutrition - 30-Day Assessment Weight Mgt (Other Care) Height: 6 ft 2 in Weight:: 243 lb BMI: 31.1 Nutrition - 60-Day Assessment Program Goals Nutrition Program Goals Patient has diagnosis of Hyperlipidemia (ICD E78)?: Yes Visit Date of Eval: 09/17/25 Session #:: 16 Cholesterol/Lipids (Other Core Measures) Determine presence & major risk factors that modify LDL goal: Cigarette smoking, Hypertension or hypertensive medication, Low HDL cholesterol <40 mg/dL*, Family history of premature CHD in Male < 55 years: female <65 yearsFa and Age men > 45 years; women >/= 55 years Outcomes/Goals: Pt IDs own risk factors & lifestyle modifications by Session 10, Verbalizes symptoms of angina & response by session 3., Pt independently manages and Other Additional Outcomes/Goals: Intervention/Plan: Advocate for lipid panel cholesterol medication if applicable, Instruct on personal lipid levels & lipid goals/NCEP guidelines, Instruct on cholesterol and Other additional plan/int Diabetes (Other Core Measures) Diabetes Type: Diagnosis Type II ICD-10 E11 Insulin dependent injection/pump?: Yes Non-Insulin Dependent?: Yes Do you monitor your blood sugar at home?: Yes Referral to Diabetic Clinic:: No 30-day Reassessments:: Met Reassessment Notes & Comments:: Pt monitors their blood sugar at home as directed by their physician. Weight Mgt (Other Care) Height: 6 ft 2 in Weight:: 243 lb BMI: 31.1 Diagnosis Overweight/Obesity BMI> 30% ICD-10 E66: Yes Diagnosis High BMI/Morbid Obesity BMI> 35% ICD-10 Z68: No Outcomes/Goals: Pt sets, maintains & shows weight loss goal & trend during rehab and Other additional outcomes/goals Intervention/Plan: Instruct on ideal BMI & set weight loss goal w/patient, Assist pt to ID & incorporate diet changes for weight loss by S9, Refer to Structured Weight Loss program as appropriate, Encourage goal of using 250-300dcal per session for weight loss and Other additional plan/interventions Healthy Eating Habits Will attend diet classes:: Yes Outcomes/Goals:: Consume diet rich in vegs,fruits,whole grain/high fiber,fish,lean meat, Limit sat/trans fats,cholesterol & added salts & sugars and Other additional outcome/goals: Intervention/Plan:: Assess current eating habits and Other Additional plan/interventions 30-day Reassessments:: Progressing Reassessment Notes & Comments:: Pt is at a healthy weight. Pt is scheduled to attend nutrition classes with our embedded systems developer. Heart healthy low sodium diet encouraged. Education Gave educational materials for:: Signs & symptoms of hypoglycemia, Signs & symptoms of hyperglycemia, Relate diabetes to coronary artery disease and Healthy eating Core - Final Assessment Hypertension Resting Blood Pressure:: 132/64 [place] [employer] Hypertension Guidelines Core - 60-Day Assessment Visit Date of Eval: 09/17/25 Session #:: 16 Medication Compliance Preventative Medication(s):: Aspirin, VANDA inhibitor, Statin/lipid and Eliquis H/O mental health issues: depression, anxiety, or addiction?: No Doesn?t believe in the benefits of treatment?: No Believes medications are unnecessary or harmful?: No Has a concern about medication side effects?: No Outcomes/Goals: Verbalizes medications,desired effect & common side effects @ DC, Pt self-reports following medication regimen, Keeps card in wallet w/medications listed by DC and Other additional outcome/goals: Interventions/plans: Instruct on medication effects & side effects, Review medication list w/patient every two weeks, Instruct importance of taking meds as ordered & assist problem solving and Other additional Reassessment Notes & Comments:: Eliquis 5 mg added 08/08/25 Tobacco Use Tobacco Use: Non-smoker Hypertension Hypertension Diagnosis:: Hypertension ICD-10 I10 Resting Blood Pressure:: 124/84 Resting Blood Pressure:: 132/64 [place] [employer] Hypertension Guidelines Peak Exercise Blood Pressure:: 166/84 Outcomes/Goals: Able to verbalize/achieve optimal blood pressure <130/80, Incorporates diet changes & exercise for blood pressure control by DC and Other additional outcomes/goals Interventions/plan: Instruct on optimal blood pressure, hypertension & medications, Instruct on effects of sodium, alcohol, stress, exercise &hypertension and Other additional plan/interventions 30 day Reassessments:: Progressing Reassessment Notes & Comments:: Pts BP are elevated on most days. Weight loss and a low sodium diet encouraged. Will continue to monitor and report to pt's physician if necessary. Tobacco Cessation Referral Smoking Cessation Referral:: No Individual Education/Counseling:: No Education Schedule Given:: Yes Psychosocial - 30-Day Assess Referral to Behavioral Health PS - Interventions: Yes: Attend Stress Management Classes Outcomes/Goals: See list Psychosocial Outcomes/Goals:: ID's personal stressors & 2 strategies to manage stress by discharge and Other Additional outcome/goals: Psychosocial - 60-Day Assess VIsit Date of Eval: 09/17/25 Session #:: 16 History of previous Mental disease:: No Psychosocial Test Tool Used:: [employer] QOL Cardiac and PHQ-9 Questionnaire phq-9 Severity See PHQ-9 Score: 4 Referral to Behavioral Health PS - Interventions: Yes: Attend Stress Management Classes Outcomes/Goals: See list Psychosocial Outcomes/Goals:: ID's personal stressors & 2 strategies to manage stress by discharge and Other Additional outcome/goals: Intervention/Plan: See List Interventions/Plan:: Assess stressors,coping strategies & signs of derpression on admission, Instruct/assist pt to develop coping & personal stress Mgt strategies, Refer to Behavioral Health if appropriate, Refer to Physician if appropriate, Instruct patient to recognize signs & symptoms of depression, Instruct patient to recog and Other additional plan/intervention 30-day Reassessments: 30 day Reassessments:: Progressing Reassessment Notes & Comments:: Pt denies any psychosocial issues at this time. Pt to attend stress management classes. Will reassess every 30 days. Psychosocial - 90-Day Assess Referral to Behavioral Health PS - Interventions: Yes: Attend Stress Management Classes Psychosocial - Final Assessmen Referral to Behavioral Health PS - Interventions: Yes: Attend Stress Management Classes Nutrition - 90-Day Assessment Weight Mgt (Other Care) Height: 6 ft 2 in Weight:: 243 lb BMI: 31.1 Nutrition - Final Assessment Weight Mgt (Other Care) Height: 6 ft 2 in Weight:: 243 lb BMI: 31.1
[2025-09-17 10:22] VITALS: BP 124/84; BP 132/64; BMI 31.1
== END 2025-10-01 23:59 ==
LOC: CR 15:15
PROVIDERS: PCP Family Medicine; Referring Provider Internal Medicine Cardiovascular Disease; Visit Provider Internal Medicine Cardiovascular Disease
DX: Z95.2 Presence of prosthetic heart valve (principal); I50.21 Acute systolic (congestive) heart failure; R93.1 Abnormal findings on diagnostic imaging of heart and coronary circulation
CPT/HCPCS: 93798